=== PATIENT | female | born 1990 | race Caucasian/White ===

== ENCOUNTER 2016-10-20 12:08 | Emergency (ER) | payer OTHER, MEDICAID ==
[2016-10-20] MEDS ORDERED: Clindamycin CAP* 150 MG PO ONE (13:22)
[2016-10-20] MEDS ORDERED: Ibuprofen TAB* 200 MG PO ONE (13:22)
[2016-10-20] MEDS ORDERED: Ondansetron ODT TAB* 4 MG PO ONE (13:23)
[2016-10-20 14:35] VITALS: BP 115/65
--- NOTE | 2016-10-21 22:35 | ED ---
Douglas Siddiqui Adam, scribed for Aron Anderson MD on 10/20/16 at 1326 . Skin Complaint - HPI Summary HPI Summary: Pt is a 25 year old female presenting with a rash on the right side of her upper back. She states that the redness developed around a bug bite approximately 1 week ago and it has been growing larger. The area of redness is painful and it also causes her pain to move her right arm. She denies noticing any pus or drainage. She also c/o nausea, chills, chest tightness, and feelings of pre-syncope. She states that the chest tightness resolved after she arrived at the ED and calmed down. She has not been eating very much because of the nausea. She denies vomiting and diarrhea. PMHx of Lakisha and anxiety. - History of Current Complaint Chief Complaint: EDChestPainROMI Time Seen by Provider: 10/20/16 13:10 Stated Complaint: FLU LIKE SYNPTOMS Hx Obtained From: Patient Hx Last Menstrual Period: gave 1 month ago Onset/Duration: Started Days Ago, Atraumatic, Still Present Timing: Constant Onset Severity: Mild Current Severity: Moderate Pain Intensity: 2 Pain Scale Used: 0-10 Numeric Skin Location: Discrete - Right upper back Character: Redness, Painful Aggravating Symptom(s): Touch, Other: - Movement of right arm Alleviating Symptom(s): Nothing Associated Signs & Symptoms: Nausea, Chills, Chest Pain, Syncope - Pre-syncope ( no LOC) - Allergy/Home Medications Allergies/Adverse Reactions: Allergies Allergy/AdvReac Type Severity Reaction Status Date / Time Oxycodone [From Percocet] Allergy Rash Verified 05/14/16 16:41 Sulfamethoxazole Allergy Hives/Diff.Breathing/Itching, Verified 05/14/16 16:41 w/Trimethoprim SWELLS [From Bactrim] PMH/Surg Hx/FS Hx/Imm Hx Endocrine/Hematology History: Reports: Hx Anemia - HISTORY OF DURING , NO PROBLEMS, TRANSFUSION WITH LAST 3 CHILDREN Denies: Hx Diabetes, Hx Thyroid Disease Cardiovascular History: Denies: Hx Hypertension Respiratory History: Reports: Hx Asthma - NO PROBLEM IN 6 YEARS Denies: Hx Chronic Obstructive Pulmonary Disease (COPD) GI History: Denies: Hx Ulcer Musculoskeletal History: Reports: Hx Arthritis - BILATERAL KNEE AND ANKLES, LEFT GREATER THAN RIGHT Sensory History: Denies: Hx Contacts or Glasses Opthamlomology History: Denies: Hx Contacts or Glasses Neurological History: Reports: Hx Headaches, Hx Migraine Psychiatric History: Reports: Hx Anxiety - NO MEDICATION Denies: Hx Eating Disorder, Hx of Violent Episodes Against Others - Surgical History [facility] [place] DIL[place] AND CURETTAGE Hx Anesthesia Reactions: No - NAUSEA AND VOMITING, LOST FEELING IN LEFT ARM, AFTER D&C - Immunization History Date of Tetanus Vaccine: Unknown Infectious Disease History: Denies: Hx Hepatitis, Hx Human Immunodeficiency Virus (HIV), Traveled Outside the [place] in Last 30 Days - Family History Known Family History: Positive: Other - No malignant hyperthermia, no anesthesia rxn, mood disorder - Social History Lives: Alone Alcohol Use: None Hx Substance Use: No Substance Use Type: Reports: None Hx Tobacco Use: Yes Smoking Status (MU): Former Smoker Have You Smoked in the Last Year: No Review of Systems Positive: Chills. Negative: Fever Negative: Erythema Negative: Sore Throat Positive: Chest Pain - Tightness Negative: Shortness Of Breath, Cough Positive: Nausea. Negative: Abdominal Pain, Vomiting, Diarrhea Negative: dysuria, hematuria Negative: Myalgia, Edema Positive: Rash Positive: Syncope - Pre-syncope (no LOC) All Other Systems Reviewed And Are Negative: Yes Physical Exam - Summary Physical Exam Summary: Constitutional: Well-developed, Well-nourished, Alert. (-) Distressed Skin: Warm, Dry HENT: Normocephalic; Atraumatic Eyes: Conjunctiva normal Neck: Musculoskeletal ROM normal neck. (-) JVD, (-) Stridor, (-) Tracheal deviation Cardio: Rhythm regular, rate normal, Heart sounds normal; Intact distal pulses; The pedal pulses are 2+ and symmetric. Radial pulses are 2+ and symmetric. (-) Murmur Pulmonary/Chest wall: Effort normal. (-) Respiratory distress, (-) Wheezes, (-) Rales Abd: Soft, (-) Tenderness, (-) Distension, (-) Guarding, (-) Rebound Musculoskeletal: (-) Edema Lymph: (-) Cervical adenopathy Neuro: Alert, Oriented x3 Psych: Mood and affect Normal Triage Information Reviewed: Yes Vital Signs On Initial Exam: Initial Vitals Temp Pulse Resp BP Pulse Ox 98.7 F 93 20 108/67 99 10/20/16 13:01 10/20/16 13:01 10/20/16 13:01 10/20/16 13:01 10/20/16 13:01 Vital Signs Reviewed: Yes - Eric Coma Scale Coma Scale Total: 15 Diagnostics - Vital Signs Vital Signs Temp Pulse Resp BP Pulse Ox 10/20/16 13:01 98.7 F 93 20 108/67 99 - Laboratory Lab Statement: Any lab studies that have been ordered have been reviewed, and results considered in the medical decision making process. Course/Dx - Diagnoses Provider Diagnoses: Cellulitis, Near syncope Discharge - Discharge Plan Condition: Stable Disposition: HOME Patient Education Materials: Cellulitis (ED), Near Syncope (ED) Forms: *Work Release [place] [facility] [place]Outside] Additional Instructions: [place] [facility] [place] to make an appt with a physician in 2 days. The documentation as recorded by the Douglas skinner Adam accurately reflects the service I personally performed and the decisions made by , Aron Anderson MD.
== END 2016-10-20 14:35 | disposition home or self-care (01) ==
LOC: ED 12:08
DX: L03.90 Cellulitis, unspecified (principal); R55 Syncope and collapse; R21 Rash and other nonspecific skin eruption; M54.9 Dorsalgia, unspecified; R07.9 Chest pain, unspecified; R11.0 Nausea
CPT/HCPCS: 99283; A9270-GY

== ENCOUNTER 2017-02-21 17:12 | Emergency (ER) | payer MEDICAID ==
[2017-02-21] MEDS ORDERED: Aspirin Low Dose CHEW TAB* 81 MG PO ONE (17:28)
[2017-02-21 17:42] LABS: Hematocrit 30 % (35-47); Hemoglobin 9.4 g/dl (12.0-16.0); Mean Corpuscular HGB Conc 31 g/dl (31-36); Mean Corpuscular Hemoglobin 22 pg (27-31); Mean Corpuscular Volume 70 fL (80-97); Mean Platelet Volume 9 um3 (7.4-10.4); Red Blood Count 4.31 10^6/ul (4.0-5.4); Red Cell Distribution Width 18 % (10.5-15); White Blood Count 6.7 10^3/ul (3.5-10.8)
[2017-02-21 18:02] LABS: Add Diff/Slide Review? Slide Review Added; Comments Flag Yes
[2017-02-21 18:05] LABS: ALT 13 U/L (7-52); AST 24 U/L (13-39); Albumin 4.3 g/dL (3.2-5.2); Alkaline Phosphatase 58 U/L (34-104); Anion Gap 6 mmol/L (2-11); BUN/Creatinine Ratio 14.9 (8-20); Blood Urea Nitrogen 11 mg/dL (6-24); CO2 Carbon Dioxide 25 mmol/L (22-32); Calcium 8.9 mg/dL (8.6-10.3); Chloride 104 mmol/L (101-111); EGFR Non-African American 94.9 (>60); Glucose 93 mg/dL (70-100); Potassium 3.3 mmol/L (3.5-5.0); Sodium 135 mmol/L (133-145); Total Protein 7.3 g/dL (6.4-8.9)
--- NOTE | 2017-02-21 18:05 | RAD ---
Indication: Syncopal episode; hit back of head. Tobacco use. Comparison: October 26, 2012 Technique: Upright AP 1736 hours Report: Clear lungs and pleural spaces. Negative for pneumothorax. The heart, pulmonary vasculature, and mediastinal contours are unremarkable. Unremarkable osseous structures and soft tissue contours. IMPRESSION: No evidence for acute intrathoracic disease.
--- NOTE | 2017-02-21 18:08 | RAD ---
Indication: Syncopal episode. Struck back of head. Comparison: No relevant prior exams available on the [facility] [place] for comparison. Technique: Noncontrast CT vertex of skull through foramen magnum. Report: The sulci, ventricles, and basal cisterns are normal for age. Maurice matter white matter differentiation is preserved without evidence for edema. No intra or extra axial hemorrhage is detected. Unremarkable orbital contents. Negative for calvarial or skull base fracture. Negative for scalp hematoma. The visualized paranasal sinuses and mastoid air spaces are clear. IMPRESSION: No evidence for traumatic brain injury or acute intracranial process. Negative exam.
[2017-02-21 18:16] LABS: Hypochromasia 1+; Microcytosis 1+; Polychromasia 1+
[2017-02-21 18:27] LABS: Iron 19 ug/dL (50-212); Total Iron Binding Capacity 475 mcg/dL (250-450); Transferrin 339 mg/dL (203-362)
[2017-02-21 18:47] LABS: Ferritin < 10.0 ng/mL (11-307)
--- NOTE | 2017-02-21 19:11 | RAD ---
Indication: Neck pain post fall. Comparison: January 28, 2010 Technique: AP, open-mouth odontoid, and lateral views cervical spine. Report: Adequate visualization from the base of the skull to the cervicothoracic junction. Normal cervical vertebral alignment. Negative for fracture. Preserved disc spaces. Unremarkable prevertebral soft tissue contours. IMPRESSION: No radiographic evidence for cervical spine injury. Negative exam.
[2017-02-21 22:35] VITALS: BP 123/82
--- NOTE | 2017-02-23 07:59 | ED ---
Thuan Siddiqui SooYoung, scribed for Aron Anderson MD on 02/21/17 at 1734 . Syncope/Near Syncope - HPI Summary HPI Summary: A 26 y/o F KAROLYN presents to ED after syncopal episode [employer]. Associated sx: LUE and LLE numbness, mid-sternal CP, nonproductive cough, nausea, chills, diaphoresis, R-sided neck pain. Denies leg pain and swelling. Pt was squatting, attempted to stand and fell backwards. She hit her head with likely LOC. Prior to head trauma, she was having pain to R forehead. She drank two Monster energy drinks within an hour of each other. Currently menstruating, she says yesterday' s flow was very heavy. Pt states not sleeping well in months. PMHx: anxiety, anemia. Occasional drinker. - History Of Current Complaint Chief Complaint: EDSyncope Time Seen by Provider: 02/21/17 17:26 Hx Obtained From: Patient, Family/Petroleum Inspector - mother Onset/Duration: Sudden Onset, Resolved - syncope Timing: Frequency Of Episodes - 1x Context: Loss Of Consciousness Associated Head Trauma: Yes Aggravating Factor(s): Other - deep breaths, sitting up Associated Signs And Symptoms: Chest Pain - mild, Diaphoresis, Head Trauma ( Remote) - due to syncope, Headache, Numbness, Pain - R-side neck - Allergies/Home Medications Allergies/Adverse Reactions: Allergies Allergy/AdvReac Type Severity Reaction Status Date / Time Oxycodone [From Percocet] Allergy Rash Verified 05/14/16 16:41 Sulfamethoxazole Allergy Hives/Diff.Breathing/Itching, Verified 05/14/16 16:41 w/Trimethoprim SWELLS [From Bactrim] PMH/Surg Hx/FS Hx/Imm Hx Previously Healthy: No Endocrine/Hematology History: Reports: Hx Anemia - HISTORY OF DURING , NO PROBLEMS, TRANSFUSION WITH LAST 3 CHILDREN Denies: Hx Diabetes, Hx Thyroid Disease Cardiovascular History: Denies: Hx Hypertension Respiratory History: Reports: Hx Asthma - NO PROBLEM IN 6 YEARS Denies: Hx Chronic Obstructive Pulmonary Disease (COPD) GI History: Denies: Hx Ulcer Musculoskeletal History: Reports: Hx Arthritis - BILATERAL KNEE AND ANKLES, LEFT GREATER THAN RIGHT Sensory History: Denies: Hx Contacts or Glasses Opthamlomology History: Denies: Hx Contacts or Glasses Neurological History: Reports: Hx Headaches, Hx Migraine Psychiatric History: Reports: Hx Anxiety - NO MEDICATION, Other Psychiatric Issues/Disorders - sleep disorders possibly due to stress Denies: Hx Eating Disorder, Hx of Violent Episodes Against Others - Surgical History [facility] [place] DILATION AND CURETTAGE Hx Anesthesia Reactions: No - NAUSEA AND VOMITING, LOST FEELING IN LEFT ARM, AFTER D&C - Immunization History Date of Tetanus Vaccine: Unknown Infectious Disease History: No Infectious Disease History: Denies: Hx Hepatitis, Hx Human Immunodeficiency Virus (HIV), Traveled Outside the [place] in Last 30 Days - Family History Known Family History: Positive: Cardiac Disease, Other - No malignant hyperthermia, no anesthesia rxn, mood disorder - Social History Occupation: Employed Full-time Lives: With Family Alcohol Use: None Hx Substance Use: No Substance Use Type: Reports: None Hx Tobacco Use: Yes Smoking Status (MU): Former Smoker Have You Smoked in the Last Year: No Review of Systems Positive: Chills, Skin Diaphoresis. Negative: Fever Negative: Erythema Negative: Sore Throat Positive: Chest Pain - mild Positive: Cough - nonproductive. Negative: Shortness Of Breath Positive: Nausea. Negative: Abdominal Pain, Vomiting Negative: dysuria, hematuria Positive: Other - pos: R-sided neck pain. Negative: Edema Negative: Rash Neurological: Other - neg: dizziness Positive: Headache, Numbness - LUE and LLE, Syncope All Other Systems Reviewed And Are Negative: Yes Physical Exam - Summary Physical Exam Summary: Constitutional: Well-developed, Well-nourished, Alert. (-) Distressed Skin: Warm, Dry HENT: Normocephalic; Atraumatic Eyes: Conjunctiva normal Neck: Musculoskeletal ROM normal neck. (-) JVD, (-) Stridor, (-) Tracheal deviation Cardio: Rhythm regular, rate normal, Heart sounds normal; Intact distal pulses; The pedal pulses are 2+ and symmetric. Radial pulses are 2+ and symmetric. (-) Murmur Pulmonary/Chest wall: Effort normal. (-) Respiratory distress, (-) Wheezes, (-) Rales Abd: Soft, (-) Tenderness, (-) Distension, (-) Guarding, (-) Rebound Musculoskeletal: (-) Edema Lymph: (-) Cervical adenopathy Neuro: Alert, Oriented x3 Psych: Mood and affect Normal Triage Information Reviewed: Yes Vital Signs On Initial Exam: Initial Vitals Temp Pulse Resp BP Pulse Ox 98.4 F 64 16 121/80 100 02/21/17 17:17 02/21/17 17:17 02/21/17 17:17 02/21/17 17:17 02/21/17 17:17 Vital Signs Reviewed: Yes - Eric Coma Scale Coma Scale Total: 15 Diagnostics - Vital Signs Vital Signs Temp Pulse Resp BP Pulse Ox 02/21/17 17:19 76 100 02/21/17 17:17 98.4 F 64 16 121/80 100 - Laboratory Result Diagrams: 02/21/17 17:30 02/21/17 17:30 Lab Statement: Any lab studies that have been ordered have been reviewed, and results considered in the medical decision making process. - Radiology CXR Xray Interpretation: No Acute Changes - IMPRESSION: No evidence for acute intrathoracic dz. Radiology Interpretation Completed By: Radiologist C-SPINE Xray Interpretation: No Acute Changes - IMPRESSION: No radiographic evidence for cervical spine injury. Negative exam. Radiology Interpretation Completed By: Radiologist - CT BRAIN CT CT Interpretation: No Acute Changes - IMPRESSION: No evidence for traumatic brain injury or acute intracranial process. Neg exam. CT Interpretation Completed By: Radiologist - EKG 1719 Cardiac Rate: NL - 66bpm EKG Rhythm: Sinus Rhythm ST Segment: Normal - no STEMI Re-Evaluation - Re-Evaluation 1 Re-Evaluation Time: 22:21 Change: Unchanged Comment: Discussing results and dispo plan with pt. Course/Dx Course Of Treatment: A 26 y/o F KAROLYN presents after syncopal episode [employer]. Associated sx: LUE and LLE numbness, mid-sternal CP, nonproductive cough, nausea , chills, diaphoresis, R-sided neck pain. Denies leg pain and swelling. Pt was squatting, attempted to stand and fell backwards. She hit her head with likely LOC. Prior to head trauma, she was having pain to R forehead. She drank two Monster energy drinks within an hour of each other. Currently menstruating, she says yesterday's flow was very heavy. Pt states not sleeping well in months. PMHx: anxiety, anemia. Occasional drinker. Bloodwork is without significant abnormalities except Iron of 19. EKG is NSR at 66bpm with no STEMI. Brain CT is negative. CXR is nml. C-Spine XR is negative. Pt given aspirin in ED. Will D/ C home with iron pills, recommended pt eat two bananas a day. - Diagnoses Provider Diagnoses: Syncope, Iron deficiency anemia, Concussion, Hypokalemia, Panic attack Discharge - Discharge Plan Condition: Stable Disposition: HOME Prescriptions: Ferrous Sulfate TAB* 325 mg PO BID #60 tab Patient Education Materials: Syncope (ED), Iron Deficiency Anemia (ED), Hypokalemia (ED), Panic Attack (ED), Concussion (ED) Forms: *Work Release Referrals: Nancy De Leon CNM [Primary Care Provider] - Additional Instructions: As we discussed, eat two bananas a day. Please return to the ED if you experience new or worsening symptoms. The documentation as recorded by the Thuan skinner SooYoung accurately reflects the service I personally performed and the decisions made by me, Aron Anderson MD.
== END 2017-02-21 22:39 | disposition home or self-care (01) ==
LOC: ED 17:12
DX: R07.9 Chest pain, unspecified (principal); R55 Syncope and collapse; S06.0X9A Concussion with loss of consciousness of unspecified duration, initial encounter; R51 Headache; R20.0 Anesthesia of skin; Z87.891 Personal history of nicotine dependence; R05 Cough; R11.0 Nausea; D64.9 Anemia, unspecified; X58.XXXA Exposure to other specified factors, initial encounter; Y93.9 Activity, unspecified; Y92.9 Unspecified place or not applicable; F41.0 Panic disorder [episodic paroxysmal anxiety]
CPT/HCPCS: 36415; 70450; 71010; 72040; 80053; 82728; 83540; 83550; 83605; 84484; 85025; 85379; 93005; 99282; A9270-GY

== ENCOUNTER → 2017-03-17 11:54 | Emergency (ER) | payer MEDICAID ==
[2017-03-17 12:00] VITALS: BP 107/80
== END | disposition home or self-care (01) ==
LOC: ED 11:54
DX: M25.511 Pain in right shoulder (principal); Z53.21 Procedure and treatment not carried out due to patient leaving prior to being seen by health care provider
CPT/HCPCS: 99281

== ENCOUNTER 2017-08-19 04:17 | Emergency (ER) | payer OTHER ==
[2017-08-19 06:18] VITALS: BP 102/62
--- NOTE | 2017-08-19 06:27 | ED ---
Yash Siddiqui Thomas, scribed for Blas Simpson MD on 08/19/17 at 0433 . Lower Extremity - HPI Summary HPI Summary: The patient is a 26 year old female brought in by ambulance concerns for frostbite on her bilateral feet. The patient was standing outside at a bus stop for an extended period of time after she left work. - History of Current Complaint Chief Complaint: EDExposureHeatCold Stated Complaint: COLD FEET Time Seen by Provider: 08/19/17 04:21 Hx Obtained From: Patient Hx Last Menstrual Period: gave 1 month ago Onset/Duration: Still Present Severity Initially: Moderate Severity Currently: Moderate Timing: Constant Location: Is Discrete @ - bilateral feet Associated Signs And Symptoms: Positive: Negative Aggravating Factor(s): Nothing Alleviating Factor(s): Nothing - Allergies/Home Medications Allergies/Adverse Reactions: Allergies Allergy/AdvReac Type Severity Reaction Status Date / Time MS Oxycodone [From Percocet] Allergy Rash Verified 03/17/17 11:58 MS Sulfamethoxazole Allergy Hives/Diff.Breathing/Itching, Verified 03/17/17 11: 58 w/Trimethoprim SWELLS [From Bactrim] PMH/Surg Hx/FS Hx/Imm Hx Endocrine/Hematology History: Reports: Hx Anemia - HISTORY OF DURING , NO PROBLEMS, TRANSFUSION WITH LAST 3 CHILDREN Denies: Hx Diabetes, Hx Thyroid Disease Cardiovascular History: Denies: Hx Hypertension Respiratory History: Reports: Hx Asthma - NO PROBLEM IN 6 YEARS Denies: Hx Chronic Obstructive Pulmonary Disease (COPD) GI History: Denies: Hx Ulcer Musculoskeletal History: Reports: Hx Arthritis - BILATERAL KNEE AND ANKLES, LEFT GREATER THAN RIGHT Sensory History: Denies: Hx Contacts or Glasses Opthamlomology History: Denies: Hx Contacts or Glasses Neurological History: Reports: Hx Headaches, Hx Migraine Psychiatric History: Reports: Hx Anxiety - NO MEDICATION, Other Psychiatric Issues/Disorders - sleep disorders possibly due to stress Denies: Hx Eating Disorder, Hx of Violent Episodes Against Others - Surgical History [facility] AND CURETT[facility] Hx Anesthesia Reactions: No - NAUSEA AND VOMITING, LOST FEELING IN LEFT ARM, AFTER D&C - Immunization History Date of Tetanus Vaccine: Unknown Infectious Disease History: Denies: Hx Hepatitis, Hx Human Immunodeficiency Virus (HIV) - Family History Known Family History: Positive: Cardiac Disease, Other - No malignant hyperthermia, no anesthesia rxn, mood disorder - Social History Alcohol Use: None Hx Substance Use: No Substance Use Type: Reports: None Hx Tobacco Use: Yes Smoking Status (MU): Former Smoker Have You Smoked in the Last Year: No Review of Systems Negative: Fever Positive: Other - Foot pain All Other Systems Reviewed And Are Negative: Yes Physical Exam - Summary Physical Exam Summary: General: well-appearing, no pain distress Skin: warm, color reflects adequate perfusion, dry Head: normal Eyes: EOMI, DEREK ENT: normal Neck: supple, nontender Respiratory: CTA, breath sounds present Cardiovascular: RRR Abdomen: soft, nontender Bowel: present Musculoskeletal: strength/ROM intact Extremities: The feet are cold to the touch but they have normal capillary refill and normal pulses. Neurological: normal, sensory/motor intact, A&O x3 Psychological: affect/mood appropriate Triage Information Reviewed: Yes Vital Signs On Initial Exam: Initial Vitals Temp Pulse Resp BP Pulse Ox 97.9 F 78 16 126/84 99 08/19/17 04:22 08/19/17 04:22 08/19/17 04:22 08/19/17 04:22 08/19/17 04:22 Vital Signs Reviewed: Yes Diagnostics - Vital Signs Vital Signs Temp Pulse Resp BP Pulse Ox 08/19/17 06:18 61 18 102/62 98 08/19/17 04:22 97.9 F 78 16 126/84 99 - Laboratory Lab Statement: Any lab studies that have been ordered have been reviewed, and results considered in the medical decision making process. Lower Extremity Course/Dx - Course Course Of Treatment: IMPROVED IN ED. F/U PMD; RETURN IF WORSE. - Diagnoses Provider Diagnoses: Hypothermia Discharge - Discharge Plan Condition: Stable Disposition: HOME Patient Education Materials: Acute Hypothermia (ED) Referrals: Nancy De Leon CNM [Certified Nurse Search Engine Optimization Strategist] - Additional Instructions: FOLLOW UP WITH YOUR DOCTOR. RETURN TO THE EMERGENCY DEPARTMENT FOR ANY WORSENING OF YOUR CONDITION OR QUESTIONS OR CONCERNS. The documentation as recorded by the Yash skinner Thomas accurately reflects the service I personally performed and the decisions made by me, Blas Simpson MD.
== END 2017-08-19 07:01 | disposition home or self-care (01) ==
LOC: ED 04:17
DX: T68.XXXA Hypothermia, initial encounter (principal); Z87.891 Personal history of nicotine dependence; X31.XXXA Exposure to excessive natural cold, initial encounter; Y92.521 Bus station as the place of occurrence of the external cause
CPT/HCPCS: 99282

== ENCOUNTER 2017-09-27 19:28 | Emergency (ER) | payer OTHER ==
[2017-09-27] MEDS ORDERED: Ketorolac INJ* 60 MG/2 ML VIAL IM ONE (20:18)
--- NOTE | 2017-09-27 21:38 | ED ---
GI/ HPI - HPI Summary HPI Summary: 26-year-old female presents with worsening menstrual cramps today. She states her period started September 20. States her cramps are worse than normal. She states she is concerned that she has ovarian cyst. She states bleeding is normal. She denies any pain with urination. She states she had a tubal but there is possibility that she is . She denies any history of STDs. She denies any flank pain. She denies any nausea or vomiting. She hasn't taking anything for pain. Heat makes it better. She denies any fevers. - History of Current Complaint Chief Complaint: EDUrogenitalProblems Time Seen by Provider: 09/27/17 20:02 Stated Complaint: MENSTRUAL CRAMPS Hx Last Menstrual Period: gave 1 month ago Pain Intensity: 9 - Allergy/Home Medications Allergies/Adverse Reactions: Allergies Allergy/AdvReac Type Severity Reaction Status Date / Time sulfamethoxazole Allergy Hives/Diff. Verified 09/27/17 19:40 [From Bactrim] Breathing/I tching trimethoprim [From Bactrim] Allergy Hives/Diff. Verified 09/27/17 19:40 Breathing/I tching acetaminophen [From Percocet] AdvReac Intermediate Rash Verified 09/27/17 19:40 oxycodone [From Percocet] AdvReac Intermediate Rash Verified 09/27/17 19:40 PMH/Surg Hx/FS Hx/Imm Hx Endocrine/Hematology History: Reports: Hx Anemia - HISTORY OF DURING , NO PROBLEMS, TRANSFUSION WITH LAST 3 CHILDREN Denies: Hx Diabetes, Hx Thyroid Disease Cardiovascular History: Denies: Hx Hypertension Respiratory History: Reports: Hx Asthma - NO PROBLEM IN 6 YEARS Denies: Hx Chronic Obstructive Pulmonary Disease (COPD) GI History: Denies: Hx Ulcer Musculoskeletal History: Reports: Hx Arthritis - BILATERAL KNEE AND ANKLES, LEFT GREATER THAN RIGHT Sensory History: Denies: Hx Contacts or Glasses Opthamlomology History: Denies: Hx Contacts or Glasses Neurological History: Reports: Hx Headaches, Hx Migraine Psychiatric History: Reports: Hx Anxiety - NO MEDICATION, Other Psychiatric Issues/Disorders - sleep disorders possibly due to stress Denies: Hx Eating Disorder, Hx of Violent Episodes Against Others - Surgical History Surgery Procedure, Year, and Place: 2010 [facility]. 04/09/2012 DILATION AND CURETTAGE Hx Anesthesia Reactions: No - NAUSEA AND VOMITING, LOST FEELING IN LEFT ARM, AFTER D&C - Immunization History Date of Tetanus Vaccine: Unknown Infectious Disease History: No Infectious Disease History: Denies: Hx Hepatitis, Hx Human Immunodeficiency Virus (HIV), Traveled Outside the [place] in Last 30 Days - Family History Known Family History: Positive: Cardiac Disease, Other - No malignant hyperthermia, no anesthesia rxn, mood disorder - Social History Alcohol Use: Rare Hx Substance Use: No Substance Use Type: Reports: None Hx Tobacco Use: Yes Smoking Status (MU): Light Every Day Tobacco Smoker Have You Smoked in the Last Year: No Review of Systems Negative: Fever Negative: Chest Pain Negative: Shortness Of Breath Positive: Abdominal Pain. Negative: Vomiting All Other Systems Reviewed And Are Negative: Yes Physical Exam Triage Information Reviewed: Yes Vital Signs On Initial Exam: Initial Vitals Temp Pulse Resp BP Pulse Ox 98.4 F 73 16 115/79 99 09/27/17 19:37 09/27/17 19:37 09/27/17 19:37 09/27/17 19:37 09/27/17 19:37 Vital Signs Reviewed: Yes Appearance: Positive: Well-Appearing Skin: Positive: Warm, Dry Head/Face: Positive: Normal Head/Face Inspection Eyes: Positive: Normal, Conjunctiva Clear Respiratory/Lung Sounds: Positive: Clear to Auscultation, Breath Sounds Present Cardiovascular: Positive: Normal, RRR Abdomen Description: Positive: Soft, Other: - mild suprapubic tenderness Bowel Sounds: Positive: Present Musculoskeletal: Positive: Normal Neurological: Positive: Normal Psychiatric: Positive: Normal Diagnostics - Vital Signs Vital Signs Temp Pulse Resp BP Pulse Ox 09/27/17 19:37 98.4 F 73 16 115/79 99 - Laboratory Lab Results: Lab Results 09/27/17 Range/Units 20:30 Beta HCG, Quant < 0.60 mIU/mL Lab Statement: Any lab studies that have been ordered have been reviewed, and results considered in the medical decision making process. - Ultrasound No standard instances Ultrasound Interpretation: No Acute Changes Ultrasound Interpretation Completed By: Radiologist GIGU Course/Dx - Course Course Of Treatment: 26-year-old female presents with worsening menstrual cramps today. She states her period started September 20. States her cramps are worse than normal. She states she is concerned that she has ovarian cyst. She states bleeding is normal. She denies any pain with urination. She states she had a tubal but there is possibility that she is . She denies any history of STDs. She denies any flank pain. She denies any nausea or vomiting. She hasn't taking anything for pain. Heat makes it better. on exam tenderness lower abdomen. hcg neg. gave toradol and feeling better. u/s normal. discussed should follow up with ob to discuss control if cramps are an issue. patient understand and agrees with plan. - Diagnoses Differential Diagnoses - Female: Ovarian Cyst, Ovarian Torsion, Other - menstrual cramps Provider Diagnoses: Menstrual cramp Discharge - Discharge Plan Condition: Good Disposition: HOME Patient Education Materials: Dysmenorrhea (ED) Forms: *Gen. Provider Communication Referrals: Bernardo Harry MD [Primary Care Provider] - Additional Instructions: Take tyenlol or ibuprofen every [address] heat on area Return to ED if develop any new or worsening symptoms
--- NOTE | 2017-09-27 21:50 | RAD ---
INDICATION: Lower abdominal pain. COMPARISON: Comparison is made with a prior pelvic ultrasound from October 24, 2013. TECHNIQUE: Multiple real-time transvaginal images of the pelvis were obtained. FINDINGS: The uterus is normal in size, shape and echogenicity. The uterus measured 8.2 x 4.6 x 5.2 cm. The endometrial echo measured 0.7 cm in thickness. The right ovary measured 3.5 x 1.7 x 2.1 cm. The left ovary measured 4.3 x 2.0 x 2.2 cm. There is vascular flow within both ovaries. There are multiple small follicular cysts. There is a trace amount of free intraperitoneal fluid in the cul-de-sac. IMPRESSION: NEGATIVE EXAM.
[2017-09-27 22:10] VITALS: BP 126/85
== END 2017-09-27 22:09 | disposition home or self-care (01) ==
LOC: ED 19:28
DX: N94.6 Dysmenorrhea, unspecified (principal); Z32.02 Encounter for pregnancy test, result negative; F17.200 Nicotine dependence, unspecified, uncomplicated; Z88.6 Allergy status to analgesic agent; Z88.3 Allergy status to other anti-infective agents; Z88.5 Allergy status to narcotic agent
CPT/HCPCS: 36415; 76830; 84702; 96372; 99282; J1885

== ENCOUNTER 2017-12-05 09:34 | Emergency (ER) | payer MEDICAID, OTHER ==
[2017-12-05 09:44] VITALS: BP 106/78
--- NOTE | 2017-12-05 10:22 | UC ---
Throat Pain/Nasal Alberto HPI - HPI Summary HPI Summary: Patient states she's had sore throat for 2 days and nausea no cough. Patient states all of her children have had strep in the last couple weeks. - History of Current Complaint Chief Complaint: UCGeneralIllness Stated Complaint: SORE THROAT Time Seen by Provider: 12/05/17 09:56 Hx Obtained From: Patient Hx Last Menstrual Period: 11/22/17 ?: No Onset/Duration: Sudden Onset, Lasting Days - 1 Pain Intensity: 7 Pain Scale Used: 0-10 Numeric Cough: None Associated Signs & Symptoms: Positive: Negative - Allergies/Home Medications Allergies/Adverse Reactions: Allergies Allergy/AdvReac Type Severity Reaction Status Date / Time sulfamethoxazole Allergy Hives/Diff. Verified 09/27/17 19:40 [From Bactrim] Breathing/I tching trimethoprim [From Bactrim] Allergy Hives/Diff. Verified 09/27/17 19:40 Breathing/I tching acetaminophen [From Percocet] AdvReac Intermediate Rash Verified 09/27/17 19:40 oxycodone [From Percocet] AdvReac Intermediate Rash Verified 09/27/17 19:40 PMH/Surg Hx/FS Hx/Imm Hx Previously Healthy: No Endocrine History: Hypothyroidism - Surgical History Surgical History: Yes Surgery Procedure, Year, and Place: 2010 [facility] [place]. 04/09/2012 DILATION AND CURETTAGE - Family History Known Family History: Positive: Cardiac Disease, Other - No malignant hyperthermia, no anesthesia rxn, mood disorder - Social History Occupation: Employed Full-time Lives: With Family Alcohol Use: Rare Substance Use Type: None Smoking Status (MU): Former Smoker Have You Smoked in the Last Year: No - Immunization History Most Recent Influenza Vaccination: last year Most Recent Tetanus Shot: n/a Most Recent Pneumonia Vaccination: n/a Review of Systems Constitutional: Negative Skin: Negative Eyes: Negative ENT: Sore Throat Respiratory: Negative Cardiovascular: Negative Gastrointestinal: Negative Genitourinary: Negative Motor: Negative Neurovascular: Negative Musculoskeletal: Negative Neurological: Negative Psychological: Negative Is Patient Immunocompromised?: No All Other Systems Reviewed And Are Negative: Yes Physical Exam Triage Information Reviewed: Yes Appearance: Well-Appearing, No Pain Distress, Well-Nourished Vital Signs: Initial Vital Signs Temp 97.1 F 12/05/17 09:40 Pulse 72 12/05/17 09:40 Resp 15 12/05/17 09:40 BP 106/78 12/05/17 09:40 Pulse Ox 100 12/05/17 09:40 Vital Signs Reviewed: Yes Eye Exam: Normal Eyes: Positive: Conjunctiva Clear ENT Exam: Normal ENT: Positive: Normal ENT inspection, Hearing grossly normal, Pharyngeal erythema, TMs normal, Uvula midline. Negative: Nasal congestion, Tonsillar swelling, Tonsillar exudate, Trismus, Muffled voice, Hoarse voice, Dental tenderness, Sinus tenderness Dental Exam: Normal Neck exam: Normal Neck: Positive: Supple, Nontender, No Lymphadenopathy Respiratory Exam: Normal Respiratory: Positive: Chest non-tender, Lungs clear, Normal breath sounds, No respiratory distress, No accessory muscle use Cardiovascular Exam: Normal Cardiovascular: Positive: RRR, No Murmur, Pulses Normal, Brisk Capillary Refill Musculoskeletal Exam: Normal Musculoskeletal: Positive: Strength Intact, ROM Intact, No Edema Neurological Exam: Normal Neurological: Positive: Alert, Muscle Tone Normal Psychological Exam: Normal Skin Exam: Normal Diagnostics - Laboratory Diagnostic Studies Completed/Ordered: RST (-) Throat Pain/Nasal Course/Dx - Course Assessment/Plan: Patient will be discharged home and treated with amoxicillin by history and chief complaint. Tylenol ibuprofen for pain increase fluids follow with PCP when necessary - Differential Dx/Diagnosis Provider Diagnoses: Pharyngitis Discharge - Sign-Out/Discharge Documenting (check all that apply): Discharge/Admit/Transfer - Discharge Plan Condition: Stable Disposition: HOME Prescriptions: Amoxicillin PO (*) [Amoxicillin 875 MG (*)] 875 mg PO BID #20 tab Patient Education Materials: Pharyngitis (ED) Forms: *Work Release Referrals: Bernardo Harry MD [Primary Care Provider] - If Needed - Billing Disposition and Condition Condition: STABLE Disposition: HOME
== END 2017-12-05 10:33 | disposition home or self-care (01) ==
LOC: UCEAST 09:34
DX: J02.9 Acute pharyngitis, unspecified (principal); E03.9 Hypothyroidism, unspecified; Z88.6 Allergy status to analgesic agent; Z88.5 Allergy status to narcotic agent; Z88.2 Allergy status to sulfonamides; Z87.891 Personal history of nicotine dependence
CPT/HCPCS: 87651; 99212; G0463

== ENCOUNTER 2018-01-20 17:52 | Emergency (ER) | payer MEDICAID ==
[2018-01-20] MEDS ORDERED: Ondansetron ODT TAB* 4 MG PO ONE (18:26)
[2018-01-20 18:43] LABS: ABS Basophils 0 10^3/ul (0-0.2); ABS Eosinophils 0.1 10^3/ul (0-0.6); ABS Lymphocytes 1.2 10^3/ul (1.0-4.8); ABS Monocytes 0.3 10^3/ul (0-0.8); ABS Neutrophils 3.4 10^3/ul (1.5-7.7); ABS Nucleated RBC 0 10^3/ul; Eosinophil % 1.2 % (0-6); Hematocrit 31 % (35-47); Hemoglobin 10.3 g/dl (12.0-16.0); Lymphocyte % 24.3 % (25-47); Mean Corpuscular HGB Conc 33 g/dl (31-36); Mean Corpuscular Hemoglobin 26 pg (27-31); Mean Corpuscular Volume 78 fL (80-97); Mean Platelet Volume 9.3 um3 (7.4-10.4); Nucleated Red Blood Cells % 0; Platelet Count 210 10^3/ul (150-450); Red Blood Count 4.03 10^6/ul (4.00-5.40); Red Cell Distribution Width 16 % (10.5-15); White Blood Count 5.1 10^3/ul (3.5-10.8)
--- NOTE | 2018-01-20 18:48 | ED ---
Complex/Multi-Sys Presentation - HPI Summary HPI Summary: 27-year-old female presents with chest pain and shortness of breath for the past 20 minutes. She states she drank 3 monster drinks. She states her symptoms started after. She admits occasional palpitations that have resolved. States that her left arm feels numb. She is nonsmoker. has family history of cardiac disease. She admits to nausea. No vomiting. She has epigastric abdominal pain. She denies any headache. She denies any dizziness. She has history of anxiety states this does not feel the same. She has no other symptoms. - History Of Current Complaint Chief Complaint: EDGeneral Time Seen by Provider: 01/20/18 18:15 - Allergies/Home Medications Allergies/Adverse Reactions: Allergies Allergy/AdvReac Type Severity Reaction Status Date / Time sulfamethoxazole Allergy Hives/Diff. Verified 01/20/18 18:02 [From Bactrim] Breathing/I tching trimethoprim [From Bactrim] Allergy Hives/Diff. Verified 01/20/18 18:02 Breathing/I tching acetaminophen [From Percocet] AdvReac Intermediate Rash Verified 01/20/18 18:02 oxycodone [From Percocet] AdvReac Intermediate Rash Verified 01/20/18 18:02 Home Medications: Home Medications Acetaminophen [Tylenol Extra Strength] 1,000 mg PO Q6HR PRN 01/20/18 [History Confirmed 01/20/18] PMH/Surg Hx/FS Hx/Imm Hx Endocrine/Hematology History: Reports: Hx Anemia - HISTORY OF DURING , NO PROBLEMS, TRANSFUSION WITH LAST 3 CHILDREN Denies: Hx Diabetes, Hx Thyroid Disease Cardiovascular History: Denies: Hx Hypertension Respiratory History: Reports: Hx Asthma - NO PROBLEM IN 6 YEARS Denies: Hx Chronic Obstructive Pulmonary Disease (COPD) GI History: Denies: Hx Ulcer Musculoskeletal History: Reports: Hx Arthritis - BILATERAL KNEE AND ANKLES, LEFT GREATER THAN RIGHT Sensory History: Denies: Hx Contacts or Glasses Opthamlomology History: Denies: Hx Contacts or Glasses Neurological History: Reports: Hx Headaches, Hx Migraine Psychiatric History: Reports: Hx Anxiety - NO MEDICATION, Other Psychiatric Issues/Disorders - sleep disorders possibly due to stress Denies: Hx Eating Disorder, Hx of Violent Episodes Against Others - Surgical History Surgery Procedure, Year, and Place: 2010 [facility] [place]. 04/09/2012 DILATION AND CURETTAGE Hx Anesthesia Reactions: No - NAUSEA AND VOMITING, LOST FEELING IN LEFT ARM, AFTER D&C - Immunization History Date of Tetanus Vaccine: Unknown Infectious Disease History: No Infectious Disease History: Denies: Hx Hepatitis, Hx Human Immunodeficiency Virus (HIV), Traveled Outside the [place] in Last 30 Days - Family History Known Family History: Positive: Cardiac Disease, Other - No malignant hyperthermia, no anesthesia rxn, mood disorder - Social History Alcohol Use: Rare Hx Substance Use: No Substance Use Type: Reports: Excessive Caffeine Hx Tobacco Use: Yes Smoking Status (MU): Former Smoker Have You Smoked in the Last Year: No Review of Systems Negative: Fever Positive: Palpitations, Chest Pain Positive: Shortness Of Breath Positive: Abdominal Pain, Nausea. Negative: Vomiting All Other Systems Reviewed And Are Negative: Yes Physical Exam Triage Information Reviewed: Yes Vital Signs On Initial Exam: Initial Vitals Temp Pulse Resp BP Pulse Ox 99.3 F 80 16 125/86 100 01/20/18 17:57 01/20/18 17:57 01/20/18 17:57 01/20/18 17:57 01/20/18 17:57 Vital Signs Reviewed: Yes Appearance: Positive: Well-Appearing Skin: Positive: Warm, Dry Head/Face: Positive: Normal Head/Face Inspection Eyes: Positive: Normal, EOMI, DEREK, Conjunctiva Clear ENT: Positive: Normal ENT inspection, Pharynx normal, TMs normal Respiratory/Lung Sounds: Positive: Clear to Auscultation, Breath Sounds Present , Other - reproducible chest pain Cardiovascular: Positive: Normal, RRR Abdomen Description: Positive: Soft, Other: - mild epigastric pain Bowel Sounds: Positive: Present Musculoskeletal: Positive: Normal Neurological: Positive: Normal Psychiatric: Positive: Normal Diagnostics - Vital Signs Vital Signs Temp Pulse Resp BP Pulse Ox 01/20/18 17:57 99.3 F 80 16 125/86 100 - Laboratory Lab Results: Lab Results 01/20/18 Range/Units 18:32 WBC 5.1 (3.5-10.8) 10^3/ul RBC 4.03 (4.00-5.40) 10^6/ul Hgb 10.3 L (12.0-16.0) g/dl Hct 31 L (35-47) % MCV 78 L (80-97) fL MCH 26 L (27-31) pg MCHC 33 (31-36) g/dl RDW 16 H (10.5-15) % Plt Count 210 (150-450) 10^3/ul MPV 9.3 (7.4-10.4) um3 Neut % (Auto) 67.0 (38-83) % Lymph % (Auto) 24.3 L (25-47) % [place] % (Auto) 6.9 (0-7) % Eos % (Auto) 1.2 (0-6) % Baso % (Auto) 0.6 (0-2) % Absolute Neuts (auto) 3.4 (1.5-7.7) 10^3/ul Absolute Lymphs (auto) 1.2 (1.0-4.8) 10^3/ul Absolute Monos (auto) 0.3 (0-0.8) 10^3/ul Absolute Eos (auto) 0.1 (0-0.6) 10^3/ul Absolute Basos (auto) 0 (0-0.2) 10^3/ul Absolute Nucleated RBC 0 10^3/ul Nucleated RBC % 0 Result Diagrams: 01/20/18 18:32 01/20/18 18:32 Lab Statement: Any lab studies that have been ordered have been reviewed, and results considered in the medical decision making process. - Radiology chest Xray Interpretation: No Acute Changes Radiology Interpretation Completed By: Radiologist - EKG No standard instances Cardiac Rate: NL EKG Rhythm: Sinus Rhythm EKG Interpretation: sinus rhythm EKG Comparison: No Significant Change Re-Evaluation - Re-Evaluation First Eval Re-Evaluation Time: 20:48 Change: Improved Comment: symptoms resolved Complex Multi-Symp Course/Dx Course Of Treatment: 27-year-old female presents with chest pain and shortness of breath for the past 20 minutes. She states she drank 3 monster drinks. She states her symptoms started after. She admits occasional palpitations that have resolved. States that her left arm feels numb. She is nonsmoker. has family history of cardiac disease. She admits to nausea. No vomiting. She has epigastric abdominal pain. She denies any headache. She denies any dizziness. She has history of anxiety states this does not feel the same. She has no other symptoms. on exam reproducible chest pain, lungs CTA. ekg no STEMI. wbc normal. h/h similiar to previous. d-dimer neg. troponin neg. chest xray normal. after two hours patient sx resolved. patient understand and agrees with plan. - Diagnoses Differential Diagnoses/HQI/PQRI: Metabolic Abnormality, Other - ACS, PE Provider Diagnoses: Adverse reaction to caffeine, Chest pain Discharge - Sign-Out/Discharge Documenting (check all that apply): Discharge/Admit/Transfer - Discharge Plan Condition: Good Disposition: HOME Patient Education Materials: Noncardiac Chest Pain (ED) Referrals: Bernardo Harry MD [Primary Care Provider] - Additional Instructions: drink plenty of fluids stop using as much caffeine Follow up with primary within 5 days - Billing Disposition and Condition Condition: GOOD Disposition: Home
[2018-01-20 19:14] LABS: EGFR Non-African American 92.7 (>60)
--- NOTE | 2018-01-20 19:54 | RAD ---
INDICATION: Chest pain COMPARISON: Chest x-ray February 21, 2017 TECHNIQUE: PA and lateral views of the chest were obtained. FINDINGS: The heart and mediastinum are normal in size and contour. The lungs are grossly clear. There is no evidence of large pleural effusion. Visualized bones are normal for the patient's age. There is no radiographic evidence of free air beneath the diaphragm IMPRESSION: No radiographic evidence of acute cardiopulmonary disease.
[2018-01-20 20:41] VITALS: BP 126/91
== END 2018-01-20 20:35 | disposition home or self-care (01) ==
LOC: ED 17:52
DX: R07.9 Chest pain, unspecified (principal); R06.02 Shortness of breath; R00.2 Palpitations; R11.0 Nausea; R10.13 Epigastric pain; T43.615A Adverse effect of caffeine, initial encounter; Y92.9 Unspecified place or not applicable; G43.909 Migraine, unspecified, not intractable, without status migrainosus; F41.9 Anxiety disorder, unspecified; Z88.6 Allergy status to analgesic agent; Z88.5 Allergy status to narcotic agent; Z88.2 Allergy status to sulfonamides; Z82.49 Family history of ischemic heart disease and other diseases of the circulatory system; Z87.891 Personal history of nicotine dependence
CPT/HCPCS: 36415; 71046; 80053; 83735; 84443; 84484; 84702; 85025; 85379; 93005; 99282

== ENCOUNTER 2018-05-04 08:38 | Emergency (ER) | payer OTHER ==
[2018-05-04 08:52] VITALS: BP 109/67
--- NOTE | 2018-05-04 09:51 | UC ---
Complaint Female HPI - HPI Summary HPI Summary: 27 yo female presents with vaginal discharge. She tells me that her symptoms began about 4 days ago and had unprotected sex with a new partner 8 days ago. She is concerned about STDs today and would like culture testing, but no blood. She would also like a test. Denies fever, chills, abdominal pain, n/v/ d/c, dysuria, or pelvic pain. - History Of Current Complaint Chief Complaint: UCSTDScreening Stated Complaint: STD TESTING Time Seen by Provider: 05/04/18 09:51 Hx Obtained From: Patient Hx Last Menstrual Period: 04/20/18 Onset/Duration: Sudden Onset Severity Initially: Moderate Severity Currently: Moderate Pain Intensity: 6 Pain Scale Used: 0-10 Numeric - Allergies/Home Medications Allergies/Adverse Reactions: Allergies Allergy/AdvReac Type Severity Reaction Status Date / Time sulfamethoxazole Allergy Hives/Diff. Verified 05/04/18 08:52 [From Bactrim] Breathing/I tching trimethoprim [From Bactrim] Allergy Hives/Diff. Verified 05/04/18 08:52 Breathing/I tching acetaminophen [From Percocet] AdvReac Intermediate Rash Verified 05/04/18 08:52 oxycodone [From Percocet] AdvReac Intermediate Rash Verified 05/04/18 08:52 Home Medications: Home Medications Levothyroxine TAB* [Synthroid 125 MCG TAB*] 125 mcg PO DAILY 05/04/18 [History Confirmed 05/04/18] PMH/Surg Hx/FS Hx/Imm Hx Endocrine History: Hypothyroidism - Surgical History Surgical History: Yes Surgery Procedure, Year, and Place: 2010 [facility]. 04/09/2012 DILATION AND CURETTAGE - Family History Known Family History: Positive: Cardiac Disease, Other - No malignant hyperthermia, no anesthesia rxn, mood disorder - Social History Occupation: Employed Full-time Lives: With Family Alcohol Use: Rare Substance Use Type: None Smoking Status (MU): Former Smoker Have You Smoked in the Last Year: No - Immunization History Most Recent Influenza Vaccination: last year Most Recent Tetanus Shot: n/a Most Recent Pneumonia Vaccination: n/a Review of Systems Constitutional: Negative Skin: Negative Respiratory: Negative Cardiovascular: Negative Gastrointestinal: Negative Genitourinary: Vaginal/Penile Discharge Neurovascular: Negative Neurological: Negative Psychological: Negative All Other Systems Reviewed And Are Negative: Yes Physical Exam - Summary Physical Exam Summary: GENERAL: NAD. WDWN. No pain distress. SKIN: No rashes, sores, lesions, or open wounds. NECK: Supple. Nontender. No lymphadenopathy. CHEST: CTAB. No r/r/w. No accessory muscle use. Breathing comfortably and in no distress. CV: RRR. Without m/r/g. Pulses intact. Cap refill <2seconds ABDOMEN: Soft. NTTP. No distention or guarding. No CVA tenderness. Bowel sounds present NEURO: Alert. PSYCH: Age appropriate behavior. Triage Information Reviewed: Yes Vital Signs: Initial Vital Signs Temp 97.7 F 05/04/18 08:46 Pulse 81 05/04/18 08:46 Resp 16 05/04/18 08:46 BP 109/67 05/04/18 08:46 Pulse Ox 99 05/04/18 08:46 Laboratory Tests 05/04/18 10:00 POC Ur Test Negative Vital Signs Reviewed: Yes Pelvic Exam: Positive: External Exam Normal, No Cerv. Motion Tender, No Masses, Discharge - Moderate thin and thick white, Other - Assisted by Zuleyma MAGALLON. Negative: Active Bleeding, Blood, Cervicitis, Lesions, Mass, Tender w/ Cervical Motion Neurological: Positive: Alert Complaint Female Dx - Course Course Of Treatment: Urine negative. Exam suspicious for BV and/or yeast. Discussed this with pt and she would like treatment for both now with confirmatory testing. Cultures also obtained for GC/C. Will treat with diflucan and flagyl now. - Differential Dx/Diagnosis Provider Diagnoses: Bacterial vaginosis. Yeast infection Discharge - Sign-Out/Discharge Documenting (check all that apply): Patient Departure All imaging exams completed and their final reports reviewed: No Studies - Discharge Plan Condition: Stable Disposition: HOME Prescriptions: Fluconazole [Diflucan 150 MG (NF)] 150 mg PO ONCE #2 tab metroNIDAZOLE [Flagyl 500 MG TAB] 500 mg PO BID #14 tab Patient Education Materials: Bacterial Vaginosis (ED), Yeast Infection (ED) Referrals: Bernardo Harry MD [Primary Care Provider] - Additional Instructions: If you develop a fever, shortness of breath, chest pain, new or worsening symptoms - please call your PCP or go to the ED. - Billing Disposition and Condition Condition: STABLE Disposition: Home
== END 2018-05-04 10:31 | disposition home or self-care (01) ==
LOC: UCEAST 08:38
DX: N76.0 Acute vaginitis (principal); B37.3 Candidiasis of vulva and vagina; Z32.02 Encounter for pregnancy test, result negative; E03.9 Hypothyroidism, unspecified; Z88.6 Allergy status to analgesic agent; Z88.5 Allergy status to narcotic agent; Z88.0 Allergy status to penicillin; Z87.891 Personal history of nicotine dependence
CPT/HCPCS: 84702; 87480; 87491; 87510; 87591; 87661; 99212; G0463

== ENCOUNTER 2018-05-20 18:07 | Emergency (ER) | payer OTHER ==
[2018-05-20 18:46] VITALS: BP 131/83
--- NOTE | 2018-05-24 07:25 | UC ---
Discharge - Sign-Out/Discharge Documenting (check all that apply): Patient Departure All imaging exams completed and their final reports reviewed: No Studies - Discharge Plan Condition: Stable Disposition: LEFT WITHOUT BEING SEEN Referrals: Bernardo Harry MD [Primary Care Provider] - - Billing Disposition and Condition Condition: STABLE Disposition: Left Without Being Seen
== END 2018-05-20 19:20 | disposition home or self-care (01) ==
LOC: UCEAST 18:07
DX: R10.9 Unspecified abdominal pain (principal); L98.9 Disorder of the skin and subcutaneous tissue, unspecified; Z53.21 Procedure and treatment not carried out due to patient leaving prior to being seen by health care provider

== ENCOUNTER 2018-06-26 14:26 | Emergency (ER) | payer OTHER ==
[2018-06-26 14:36] VITALS: BP 119/77
--- NOTE | 2018-06-26 14:51 | UC ---
Head Injury HPI - HPI Summary HPI Summary: 27-year-old woman comes to clinic today with a chief complaint of head and facial injury. At about 4 hours ago she slipped and fell on some ice and struck her left face and head on the ice. She fell a few the past out and she went inside her house and then she relates that she did pass out. She reports bleeding from the mouth. She is nauseous. States her vision in the left eye is blurry. It hurts to try to chew. She feels an irregularity in the roof of her mouth with her tongue on the left side. No double vision. Reports decreased sensation in the left side of the face. Denies any weakness or numbness in the arms or legs or difficulties with speech. Not on any blood thinners. Patient has pain in the left side of the neck especially with turning the head to the right. - History Of Current Complaint Chief Complaint: UCHeadInjury Stated Complaint: FELL FACIAL INJURY Time Seen by Provider: 06/26/18 14:39 Hx Last Menstrual Period: 06/19/18 Pain Intensity: 10 - Allergies/Home Medications Allergies/Adverse Reactions: Allergies Allergy/AdvReac Type Severity Reaction Status Date / Time sulfamethoxazole Allergy Hives/Diff. Verified 06/26/18 14:36 [From Bactrim] Breathing/I tching trimethoprim [From Bactrim] Allergy Hives/Diff. Verified 06/26/18 14:36 Breathing/I tching acetaminophen [From Percocet] AdvReac Intermediate Rash Verified 06/26/18 14:36 oxycodone [From Percocet] AdvReac Intermediate Rash Verified 06/26/18 14:36 PMH/Surg Hx/FS Hx/Imm Hx Endocrine History: Hypothyroidism - Surgical History Surgical History: Yes Surgery Procedure, Year, and Place: 2010, , [facility] [place]. 04/09/2012 DILATION AND CURETTAGE - Family History Known Family History: Positive: Cardiac Disease, Other - No malignant hyperthermia, no anesthesia rxn, mood disorder - Social History Alcohol Use: Rare Substance Use Type: None Smoking Status (MU): Former Smoker Length of Time of Smoking/Using Tobacco: at age 23 Have You Smoked in the Last Year: No - Immunization History Most Recent Influenza Vaccination: last year Most Recent Tetanus Shot: n/a Most Recent Pneumonia Vaccination: n/a Review of Systems All Other Systems Reviewed And Are Negative: Yes Constitutional: Positive: Negative Skin: Positive: Negative Eyes: Positive: Blurred Vision - SEE HPI ENT: Positive: Other - SEE HPI Respiratory: Positive: Negative Cardiovascular: Positive: Negative Gastrointestinal: Positive: Negative Motor: Positive: Negative Neurovascular: Positive: Decreased Sensation - SEE HPI Musculoskeletal: Positive: Negative Neurological: Positive: Headache, Other - SEE HPI Psychological: Positive: Negative Is Patient Immunocompromised?: No Physical Exam Triage Information Reviewed: Yes Appearance: Well-Appearing, Well-Nourished, Pain Distress - MILD WITH PALPATION OF LEFT FACE Vital Signs: Initial Vital Signs Temp 98 F 06/26/18 14:27 Pulse 89 06/26/18 14:27 Resp 18 06/26/18 14:27 BP 119/77 06/26/18 14:27 Pulse Ox 100 06/26/18 14:27 Vital Signs Reviewed: Yes Eye Exam: Normal Eyes: Positive: Conjunctiva Clear ENT: Positive: TMs normal - NO HEMOTYMPANUM, Other - Patient is tender to palpation in the left zygomatic arch, left orbit, forehead and temporal area. Inside the mouth patient is tender left upper molars I do not see any obvious deformity there is no bleeding at this time. Neck exam: Normal Neck: Positive: Supple, Other: Respiratory: Positive: No respiratory distress Musculoskeletal Exam: Normal Musculoskeletal: Positive: Strength Intact, ROM Intact Neurological Exam: Normal Neurological: Positive: Alert, Muscle Tone Normal, Other: - GCS 15 Psychological Exam: Normal Psychological: Positive: Age Appropriate Behavior Skin Exam: Normal Head Injury Course/Dx - Course Course Of Treatment: Here in clinic today we do not have access to CT. Due to the loss of consciousness with the head injury and the patient feeling the irregularity in her upper jaw from her facial injury I recommended going to the emergency department for CT scan of the head and facial bones. We discussed transport by ambulance and POV patient is going to go by POV. - Differential Dx/Diagnosis Provider Diagnosis: Head injury, Concussion, Facial contusion Discharge - Sign-Out/Discharge Documenting (check all that apply): Patient Departure All imaging exams completed and their final reports reviewed: No Studies - Discharge Plan Condition: Stable Disposition: HOME-RECOMMEND TO ED Patient Education Materials: Concussion (ED), Head Injury (ED), Facial Contusion (ED) Referrals: Bernardo Harry MD [Primary Care Provider] - Additional Instructions: GO DIRECTLY TO THE EMERGENCY DEPARTMENT FOR FURTHER EVALUATION. - Billing Disposition and Condition Condition: STABLE Disposition: Home-Recommend to ED
== END 2018-06-26 14:59 | disposition home health service (06) ==
LOC: UCEAST 14:26
DX: S00.93XA Contusion of unspecified part of head, initial encounter (principal); S06.0X9A Concussion with loss of consciousness of unspecified duration, initial encounter; W00.0XXA Fall on same level due to ice and snow, initial encounter; Y92.9 Unspecified place or not applicable; Z88.6 Allergy status to analgesic agent; Z88.5 Allergy status to narcotic agent; Z88.2 Allergy status to sulfonamides; Z87.891 Personal history of nicotine dependence
CPT/HCPCS: 99212; G0463

== ENCOUNTER → 2018-06-26 15:11 | Emergency (ER) | payer OTHER ==
[~2018-06-26 15:11] MED LIST: Acetaminophen TAB* 325 MG PO ONE; Amoxicillin/Clavulanate TAB* 875 MG PO ONE
--- NOTE | 2018-06-26 16:47 | ED ---
Adult Trauma - HPI Summary HPI Summary: This patient is a 27 year old F presenting to [facility] with a chief complaint of recent fall on ice at 10am. The patient rates the pain 10/10 in severity. Patient reports WHITAKER, neck pain, nausea, blurry vision in the left eye, anxiety, and numbness in the left arm. The pt slipped on ice and fell, landed on her left side, and hit her face and left arm. She states her lip was bleeding also. After the fall, she ran inside and her sister said she had a temporary LOC. Pt reports that she is having a left sided headache. As for the pain, she says she would rather be in labor with her children. Allergies to Percocet and Bactrim. LKMP one week ago. PMHX hypothyroidism, concussions (5), three c sections. SHX parent. RX Sinthyroid. - History of Current Complaint Chief Complaint: EDHeadInjury Stated Complaint: FALL Time Seen by Provider: 06/26/18 16:02 Hx Obtained From: Patient Hx Last Menstrual Period: 06/19/18 Mechanism of Injury: Fall Loss of Consciousness: brief (seconds) Onset/Duration: Started Hours Ago - 10am Onset of Pain: Immediate Onset Severity: Severe Current Severity: Severe Pain Intensity: 10 Pain Scale Used: 0-10 Numeric Location: Head, Neck, Extremities - left arm Associated Signs & Symptoms: Positive: Nausea/Vomiting, Loss of Consciousness, Numbness/Weakness - Allergy/Home Medications Allergies/Adverse Reactions: Allergies Allergy/AdvReac Type Severity Reaction Status Date / Time sulfamethoxazole Allergy Hives/Diff. Verified 06/26/18 15:16 [From Bactrim] Breathing/I tching trimethoprim [From Bactrim] Allergy Hives/Diff. Verified 06/26/18 15:16 Breathing/I tching oxycodone [From Percocet] AdvReac Intermediate Rash Verified 06/26/18 15:16 PMH/Surg Hx/FS Hx/Imm Hx Endocrine/Hematology History: Reports: Hx Thyroid Disease, Hx Anemia - HISTORY OF DURING , NO PROBLEMS, TRANSFUSION WITH LAST 3 CHILDREN Denies: Hx Diabetes Cardiovascular History: Denies: Hx Hypertension Respiratory History: Reports: Hx Asthma Denies: Hx Chronic Obstructive Pulmonary Disease (COPD) GI History: Denies: Hx Ulcer Musculoskeletal History: Reports: Hx Arthritis - BILATERAL KNEE AND ANKLES, LEFT GREATER THAN RIGHT Sensory History: Denies: Hx Contacts or Glasses Opthamlomology History: Denies: Hx Contacts or Glasses Neurological History: Reports: Hx Headaches, Hx Migraine Psychiatric History: Reports: Hx Anxiety - NO MEDICATION, Other Psychiatric Issues/Disorders - sleep disorders possibly due to stress Denies: Hx Eating Disorder, Hx of Violent Episodes Against Others - Surgical History Surgery Procedure, Year, and Place: 2010, , [facility] [facility] [place] DILATION AND CURETTAGE Hx Anesthesia Reactions: No - NAUSEA AND VOMITING, LOST FEELING IN LEFT ARM, AFTER D&C - Immunization History Date of Tetanus Vaccine: Unknown Infectious Disease History: No Infectious Disease History: Denies: Hx Hepatitis, Hx Human Immunodeficiency Virus (HIV), Traveled Outside the [place] in Last 30 Days - Family History Known Family History: Positive: Cardiac Disease, Other - No malignant hyperthermia, no anesthesia rxn, mood disorder - Social History Alcohol Use: Rare Hx Substance Use: No Substance Use Type: Reports: None Hx Tobacco Use: Yes Smoking Status (MU): Former Smoker Length of Time of Smoking/Using Tobacco: at age 23 Have You Smoked in the Last Year: No Review of Systems Positive: Blurred Vision Positive: Nausea Positive: Other - neck pain Positive: Headache, Numbness - left arm Positive: Anxious All Other Systems Reviewed And Are Negative: Yes Physical Exam - Summary Physical Exam Summary: GENERAL: Patient is a well-developed and nourished female who is lying comfortable in the stretcher. Patient is not in any acute respiratory distress. HEAD AND FACE: Normocephalic. TTP along the left side of her face. EYES: PERRLA, EOMI x 2. EARS: Hearing grossly intact. MOUTH: Oropharynx within normal limits. NECK: Supple, trachea is midline, no adenopathy, no JVD, no carotid bruit. Tenderness along the c spine. CHEST: Symmetric, no tenderness at palpation LUNGS: Clear to auscultation bilaterally. No wheezing or crackles. CVS: Regular rate and rhythm, S1 and S2 present, no murmurs or gallops appreciated. ABDOMEN: Soft, non-tender. Bowel sounds are normal. No abdominal abnormal pulsations. EXTREMITIES: Full ROM in all major joints, no edema, no cyanosis or clubbing. NEURO: Alert and oriented x 3. No acute neurological deficits. Speech is normal and follows commands. SKIN: Dry and warm Triage Information Reviewed: Yes Vital Signs On Initial Exam: Initial Vitals Temp Pulse Resp BP Pulse Ox 97.8 F 84 16 113/85 100 06/26/18 15:13 06/26/18 15:13 06/26/18 15:13 06/26/18 15:13 06/26/18 15:13 Vital Signs Reviewed: Yes Diagnostics - Vital Signs Vital Signs Temp Pulse Resp BP Pulse Ox 06/26/18 15:13 97.8 F 84 16 113/85 100 - Laboratory Lab Statement: Any lab studies that have been ordered have been reviewed, and results considered in the medical decision making process. - CT Brain CT Interpretation Completed By: Radiologist Summary of CT Findings: No CT evidence for traumatic brain injury. Negative exam. ED physician has reviewed this report C-spine CT Interpretation Completed By: Radiologist Summary of CT Findings: No CT evidence for traumatic cervical spine injury. ED physician has reviewed this report Maxillofacial CT Interpretation Completed By: Radiologist Summary of CT Findings: Isolated fracture involving the medial wall of the LEFT orbit/lamina papyracea as described. ED physician has reviewed this report Adult Trauma Course/Dx - Course Course Of Treatment: This patient is a 27 year old F presenting to [facility] with a chief complaint of recent fall on ice at 10am. The patient rates the pain 10/10 in severity. Patient reports WHITAKER, neck pain, nausea, blurry vision in the left eye, anxiety, and numbness in the left arm. Brain CT reveals No CT evidence for traumatic brain injury. Negative exam. C-Spine reveals No CT evidence for traumatic cervical spine injury. Maxillofacial CT reveals Isolated fracture involving the medial wall of the LEFT orbit/lamina papyracea as described. ED physician has reviewed this radiology report. In the ED course the patient was given Acetaminophen. Discussed results with patient and she reports feeling better. She is hemodynamically stable and safe for discharge. Strict return precautions given and she will otherwise follow up with Dr. Street, plastic surgeon. Patient will be discharged with prescription for Amoxicillin and follow up from Dr. Street. The patient is agreeable with this plan. - Diagnoses Provider Diagnoses: Lamina papyracea fracture Discharge - Sign-Out/Discharge Documenting (check all that apply): Patient Departure - discharge - Discharge Plan Condition: Stable Disposition: HOME Prescriptions: Amoxicillin/Clavulanate TAB* [Augmentin TAB 875*] 875 mg PO BID #14 tab Patient Education Materials: Facial Fracture (ED) Forms: *Work Release Referrals: Gordon Street MD [Medical Doctor] - Additional Instructions: Follow up with Dr. Street in 1-3 days. RETURN TO THE EMERGENCY DEPARTMENT FOR CHANGING OR WORSENING SYMPTOMS. - Billing Disposition and Condition Condition: STABLE Disposition: Home - Attestation Statements Document Initiated by Scribe: Yes Documenting Scribe: Jonathan Flores Provider For Whom Scribe is Documenting (Include Credential): Jeison Gonzalez MD Scribe Attestation: I, Jonathan Flores, scribed for Jeison Gonzalez MD on 06/26/18 at 1800. Scribe Documentation Reviewed: Yes Provider Attestation: The documentation as recorded by the scribeJonathan accurately reflects the service I personally performed and the decisions made by me, Jeison Gonzalez MD Status of Scribe Document: Viewed Work Excuse - Work Note Work Note: The above employee has been evaluated on 06/26/18. The physician has instructed the employee concerning further work as described below. Work Status: OFF WORK 06/26 [] Jeison Gonzalez [id number]
[2018-06-26 18:11] VITALS: BP 118/71
== END | disposition home or self-care (01) ==
LOC: ED 15:11
DX: S02.82XA Fracture of other specified skull and facial bones, left side, initial encounter for closed fracture (principal); D64.9 Anemia, unspecified; Z87.891 Personal history of nicotine dependence; W00.0XXA Fall on same level due to ice and snow, initial encounter; Y92.9 Unspecified place or not applicable; E03.9 Hypothyroidism, unspecified
CPT/HCPCS: 70450; 70486; 72125; 99283; A9270-GY

== ENCOUNTER 2018-07-12 11:25 | Emergency (ER) | payer OTHER ==
[2018-07-12] MEDS ORDERED: Acetaminophen TAB* 325 MG PO ONE (12:17)
--- NOTE | 2018-07-12 12:27 | ED ---
Throat Pain/Nasal Congestion - HPI Summary HPI Summary: Patient presents with acute loss of vision in her left eye this morning upon waking. She reports she saw nothing out of this eye and in fact thought "my eye was stuck shut". Lights and blurred vision began to return about an hour later. Vision does not feel like it is quite back to normal at this point in time. Patient is status post "isolated fracture involving the medial wall of the left orbit/lamina papyracea" (see CT scan from 06/26/2018). She had sustained a facial injury on this day after slipping on the ice. She was seen here in the ED and diagnosed with said fracture and advised to have close follow-up with Dr. Street. Patient admits she had visual changes in the left eye the day of injury that persisted for 5 days after the injury but had eventually resolved until this morning. She has never experienced complete loss of vision which scared her and brought her in today. Symptoms that she's had since the injury which persist are a left-sided forehead, periorbital and jaw pain which is worse with light exposure. She also reports worsening of symptoms when she' s riding in the car - she's not sure if this is due to trying to focus on moving objects or if the vibration of being in the car is stimulating a WHITAKER d/t concussion from initial injury. She denies numbness, tingling, weakness, slurred speech, difficulty with words or concentration as well as nausea, vomiting. 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 She was seen by Dr. Street (plastic surgeon) and told to follow-up in 2 weeks to see if things improve before further testing or intervention. She reports she was having left medial eye pain with sneezing after injury - this seems to be improving somewhat. She also continues to have blood-streaked mucus from her Lt nare with sneezing and blowing her nose however denies jeny epistaxis. She is still eating and drinking well without difficulty swallowing or jaw pain. She' s been taking Tylenol for pain however she has not taken any this morning. - History of Current Complaint Chief Complaint: EDEyeProblem Time Seen by Provider: 07/12/18 11:36 Hx Obtained From: Patient - Allergies/Home Medications Allergies/Adverse Reactions: Allergies Allergy/AdvReac Type Severity Reaction Status Date / Time sulfamethoxazole Allergy Hives/Diff. Verified 07/12/18 11:31 [From Bactrim] Breathing/I tching trimethoprim [From Bactrim] Allergy Hives/Diff. Verified 07/12/18 11:31 Breathing/I tching oxycodone [From Percocet] AdvReac Intermediate Rash Verified 07/12/18 11:31 PMH/Surg Hx/FS Hx/Imm Hx Previously Healthy: Yes Endocrine/Hematology History: Reports: Hx Thyroid Disease, Hx Anemia - HISTORY OF DURING , NO PROBLEMS, TRANSFUSION WITH LAST 3 CHILDREN Denies: Hx Anticoagulant Therapy, Hx Blood Disorders, Hx Diabetes Cardiovascular History: Denies: Hx Hypertension Respiratory History: Reports: Hx Asthma Denies: Hx Chronic Obstructive Pulmonary Disease (COPD) GI History: Denies: Hx Ulcer Musculoskeletal History: Reports: Hx Arthritis - BILATERAL KNEE AND ANKLES, LEFT GREATER THAN RIGHT Sensory History: Denies: Hx Contacts or Glasses Opthamlomology History: Reports: Hx Vision Problem - Left medial wall orbital fx on 06/26/2018 - visual change, resolved on 07/01 Denies: Hx Contacts or Glasses Neurological History: Reports: Hx Headaches, Hx Migraine, Other Neuro Impairments/Disorders - possible concussion on 06/26/2018? Psychiatric History: Reports: Hx Anxiety - NO MEDICATION, Other Psychiatric Issues/Disorders - sleep disorders possibly due to stress Denies: Hx Eating Disorder, Hx of Violent Episodes Against Others - Surgical History Surgery Procedure, Year, and Place: 2010, , [facility], [facility] [place]. 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 Lives: With Family Alcohol Use: Rare Hx Substance Use: No Substance Use Type: Reports: None Hx Tobacco Use: Yes Smoking Status (MU): Former Smoker Length of Time of Smoking/Using Tobacco: at age 23 Have You Smoked in the Last Year: No Review of Systems Constitutional: Negative Eyes: Other - pain w/ movements Positive: Photophobia, Blurred Vision - see HPI ENT: Other - Lt medial orbit wall pain Cardiovascular: Negative Respiratory: Negative Gastrointestinal: Negative Positive: no symptoms reported Musculoskeletal: Negative Skin: Negative Positive: Headache - as in HPI Psychological: Normal All Other Systems Reviewed And Are Negative: Yes Physical Exam Triage Information Reviewed: Yes Vital Signs On Initial Exam: Initial Vitals Temp Pulse Resp BP Pulse Ox 98.1 F 73 16 109/69 99 07/12/18 11:28 07/12/18 11:28 07/12/18 11:28 07/12/18 11:28 07/12/18 11:28 Vital Signs Reviewed: Yes Appearance: Positive: Well-Appearing - lights are out to prevent worsening of WHITAKER , Well-Nourished Skin: Positive: Warm, Skin Color Reflects Adequate Perfusion, Dry - no erythema , no edema, no ecchymosis about the Lt side of face Head/Face: Positive: Normal Head/Face Inspection - no gross deformity, edema or asymmetry Eyes: Positive: EOMI - pt reports pain in Lt eye w/ lateral gaze and upward gaze , DEREK - photophobia, Conjunctiva Clear, Other: - no hyphema - funduscopic exam difficult d/t pt's intolerance to light exam ENT: Positive: Normal ENT inspection, Hearing grossly normal, Pharynx normal - no bleeding, Nasal congestion, Nasal drainage - patent B/L - no epistaxis or signs of bleeding, TMs normal - no hemotympanum, Uvula midline. Negative: Tonsillar swelling, Tonsillar exudate, Trismus, Muffled voice, Hoarse voice Dental: Negative: Dental Fracture @ Neck: Positive: Supple, Nontender - FROM Respiratory/Lung Sounds: Positive: Breath Sounds Present Cardiovascular: Positive: Normal Musculoskeletal: Positive: Normal, Strength/ROM Intact Neurological: Positive: Sensory/Motor Intact, Alert, Oriented to Person Place, Time, CN Intact II-III, Other - all 4 visual webster intact B/L Psychiatric: Positive: Normal - Eric Coma Scale Best Eye Response: 4 - Spontaneous Best Motor Response: 6 - Obeys Commands Best Verbal Response: 5 - Oriented Coma Scale Total: 15 Diagnostics - Vital Signs Vital Signs Temp Pulse Resp BP Pulse Ox 07/12/18 11:28 98.1 F 73 16 109/69 99 - Laboratory Lab Statement: Any lab studies that have been ordered have been reviewed, and results considered in the medical decision making process. EENT Course/Dx - Course Course Of Treatment: Patient presents w/ waking w/ abrupt complete visual loss in Left eye this morning around 8:45am - this improved to pt having light and now blurred vision at 9:50am. She sustained a Left orbital fracture on 06/26 and has been following with a plastic surgeon who advised no intervention but to f/ u in 2 weeks. With new onset of symptoms without provocation this morning, concerned for hemorrhage, entrapment, nerve injury, etc. Discussed w/ Dr. Simpson and pt who agree evaluation at [facility] is warranted. Pt appears stable at this time so will ride up in private vehicle with her father. She is requesting an eye patch to reduce ocular stimulation during the drive today - this was provided only for use today and explained this may not be appropriate for senior living use. She agrees to be seen at the ED today and consult w/ ophthomology as recommended. Pt discharged in stable condition. Spoke w/ Dr. Paz at [facility] ED who is aware of patient's injury and sx. - Diagnoses Provider Diagnoses: Sudden visual loss, left eye, Left orbit fracture Discharge - Sign-Out/Discharge Documenting (check all that apply): Patient Departure - Discharge Plan Condition: Stable Disposition: HOME-RECOMMEND TO ED Additional Instructions: Due to abrupt visual loss in the face of a Left orbit fracture, go directly to [facility] Emergency Department in [facility] Address: [address] [place] [address] Take your reports and CD disc of CT images to ED with you - Billing Disposition and Condition Condition: STABLE Disposition: Home-Recommend to ED
[2018-07-12 13:02] VITALS: BP 110/72
== END 2018-07-12 13:01 | disposition home health service (06) ==
LOC: ED 11:25
DX: H53.132 Sudden visual loss, left eye (principal); S02.8 Fractures of other specified skull and facial bones; R51 Headache; H53.8 Other visual disturbances; Z87.891 Personal history of nicotine dependence; X58.XXXS Exposure to other specified factors, sequela; Z88.2 Allergy status to sulfonamides
CPT/HCPCS: 99282; A9270-GY

== ENCOUNTER 2018-07-25 18:37 | Emergency (ER) | payer OTHER ==
[2018-07-25 18:47] VITALS: BP 110/71
--- NOTE | 2018-07-25 18:55 | UC ---
Lower Extremity/Ankle HPI - HPI Summary HPI Summary: 27 year old female presents with right little toe and lateral foot pain. States tonight at work at around 17:20 her foot was accidentally run over by a shopping cart. Complains of pain to right little toe and over the 5th metatarsal. She was able to bear weight immediately after the injury and in the clinic. States pain is worse with weight bearing and ambulation. Non-radiating. Denies numbness or tingling. - History of Current Complaint Chief Complaint: UCLowerExtremity Stated Complaint: FOOT INJURY Time Seen by Provider: 07/25/18 18:42 Hx Obtained From: Patient Hx Last Menstrual Period: <1 WEEK AGO Pain Intensity: 8 - Allergies/Home Medications Allergies/Adverse Reactions: Allergies Allergy/AdvReac Type Severity Reaction Status Date / Time sulfamethoxazole Allergy Hives/Diff. Verified 07/25/18 18:47 [From Bactrim] Breathing/I tching trimethoprim [From Bactrim] Allergy Hives/Diff. Verified 07/25/18 18:47 Breathing/I tching oxycodone [From Percocet] AdvReac Intermediate Rash Verified 07/25/18 18:47 Home Medications: Home Medications Naproxen Sodium [Aleve] 220 mg PO ONCE PRN 07/25/18 [History Confirmed 07/25/18] PMH/Surg Hx/FS Hx/Imm Hx Endocrine History: Hypothyroidism Respiratory History: Asthma Neurological History: Migraine - Surgical History Surgical History: Yes Surgery Procedure, [facility] and [facility] AND CURETTAGE - Family History Known Family History: Positive: Cardiac Disease - Social History Occupation: Employed Full-time Lives: Alone Alcohol Use: None Substance Use Type: None Smoking Status (MU): Former Smoker Length of Time of Smoking/Using Tobacco: at age 23 Have You Smoked in the Last Year: No - Immunization History Most Recent Influenza Vaccination: last year Most Recent Tetanus Shot: n/a Most Recent Pneumonia Vaccination: n/a Review of Systems All Other Systems Reviewed And Are Negative: Yes Skin: Negative: Bruising Respiratory: Positive: Negative Cardiovascular: Positive: Negative Gastrointestinal: Positive: Negative Genitourinary: Positive: Negative Neurovascular: Negative: Decreased Sensation Musculoskeletal: Positive: Decreased ROM - right 5th toe d/t pain, Other: - See HPI. Negative: Edema Neurological: Positive: Negative Is Patient Immunocompromised?: No Physical Exam - Summary Physical Exam Summary: GENERAL APPEARANCE: Well developed, well nourished, alert and cooperative, and appears to be in no acute distress. CARDIAC: Normal S1 and S2. No S3, S4 or murmurs. Rhythm is regular. There is no peripheral edema, cyanosis or pallor. Extremities are warm and well perfused. Capillary refill is less than 2 seconds. Peripheral pulses intact. LUNGS: Clear to auscultation without rales, rhonchi, wheezing or diminished breath sounds. ABDOMEN: Positive bowel sounds. Soft, nondistended, nontender. No guarding or rebound. No masses or hepatosplenomegally. MUSKULOSKELETAL: Tenderness to right 5th toe and over the distal 5th metatarsal. No erythema, ecchymosis, lesions, or gross deformity noted. NEUROLOGICAL: Sensation intact. SKIN: Skin normal color, texture and turgor with no lesions or eruptions. Triage Information Reviewed: Yes Vital Signs: Initial Vital Signs Temp 97.3 F 07/25/18 18:43 Pulse 79 07/25/18 18:43 Resp 16 07/25/18 18:43 BP 110/71 07/25/18 18:43 Pulse Ox 97 07/25/18 18:43 Vital Signs Reviewed: Yes Diagnostics - Radiology No standard instances Radiology Interpretation Completed By: ED Physician - No fracture or dislocation noted. Lower Extremity Course/Dx - Course Course Of Treatment: 27 year old female presents with right little toe and lateral foot pain. States tonight at work at around 17:20 her foot was accidentally run over by a shopping cart. Complains of pain to right little toe and over the 5th metatarsal. She was able to bear weight immediately after the injury and in the clinic. States pain is worse with weight bearing and ambulation. Non-radiating. Denies numbness or tingling. Afebrile. VSS. Exam revealed tenderness to right 5th toe and over the distal 5th metatarsal without erythema, ecchymosis, or gross deformity. X-ray showed no fracture or dislocation. Patient was placed in a post-op shoe and recommended conservative treatment with RICE and OTC analgesics. She is to follow up with Dr. Maya, occupational medicince, in 7 days if symptoms do not improve. Verbalizes understanding and agrees with POC. - Differential Dx/Diagnosis Differential Diagnosis/HQI/PQRI: Contusion, Fracture (Closed), Sprain, Strain Provider Diagnosis: Contusion of right foot Discharge - Sign-Out/Discharge Documenting (check all that apply): Patient Departure All imaging exams completed and their final reports reviewed: No - Discharge Plan Condition: Stable Disposition: HOME Patient Education Materials: Contusion in Adults (ED) Forms: *Work Release Referrals: Bernardo Harry MD [Primary Care Provider] - Brendan Maya MD [Medical Doctor] - 7 Days (If no improvement in symptoms.) Additional Instructions: Your x-ray performed in the clinic today showed no evidence of fracture. The x- ray will be reviewed by the radiologist tomorrow and we will contact you if they see something that would change your plan of care. Wear the post-op shoe for comfort and support until you are pain-free. Rest the foot as much as possible. You may continue to walk and bear weight as tolerated. Apply ice to the affected area for 15-20 minutes 4 times a day for next few days. Keep the foot elevated while sitting to help reduce swelling. Take acetaminophen (Tylenol), ibuprofen (Advil, Motrin), or naproxen (Aleve) according to directions as needed for pain. Follow up with Dr. Maya, occupational medicine, in 7 days if symptoms do not improve. Call for appointment. - Billing Disposition and Condition Condition: STABLE Disposition: Home
--- NOTE | 2018-07-26 14:48 | UC ---
- Progress Note Progress Note: RADIOLOGY REPORT REVIEWED. CONFIRMED NO FRACTURE. NO CHANGE IN MGMT Course/Dx - Diagnoses Provider Diagnoses: Contusion of right foot Discharge - Sign-Out/Discharge Documenting (check all that apply): Post-Discharge Follow Up All imaging exams completed and their final reports reviewed: Yes - Discharge Plan Condition: Stable Disposition: HOME Patient Education Materials: Contusion in Adults (ED) Forms: *Work Release Referrals: Bernardo Harry MD [Primary Care Provider] - Brendan Maya MD [Medical Doctor] - 7 Days (If no improvement in symptoms.) Additional Instructions: Your x-ray performed in the clinic today showed no evidence of fracture. The x- ray will be reviewed by the radiologist tomorrow and we will contact you if they see something that would change your plan of care. Wear the post-op shoe for comfort and support until you are pain-free. Rest the foot as much as possible. You may continue to walk and bear weight as tolerated. Apply ice to the affected area for 15-20 minutes 4 times a day for next few days. Keep the foot elevated while sitting to help reduce swelling. Take acetaminophen (Tylenol), ibuprofen (Advil, Motrin), or naproxen (Aleve) according to directions as needed for pain. Follow up with Dr. Maya, occupational medicine, in 7 days if symptoms do not improve. Call for appointment. - Billing Disposition and Condition Condition: STABLE Disposition: Home
== END 2018-07-25 19:15 | disposition home or self-care (01) ==
LOC: UCEAST 18:37
DX: S90.31XA Contusion of right foot, initial encounter (principal); J45.909 Unspecified asthma, uncomplicated; Z88.2 Allergy status to sulfonamides; Z88.5 Allergy status to narcotic agent; Z87.891 Personal history of nicotine dependence; W22.8XXA Striking against or struck by other objects, initial encounter; Y92.9 Unspecified place or not applicable; Y99.0 Civilian activity done for income or pay
CPT/HCPCS: 99211; G0463

== ENCOUNTER 2018-10-20 14:15 | Emergency (ER) | payer OTHER ==
--- OUTSIDE RECORDS SUMMARY | 2018-10-20 14:21 | XMS REPORT | Continuity of Care Document ---
:1990 External Reference #:[id number] Author Name Blas Gayle N.P. Address [address] [place] [address] Care Team Providers Name Role Phone Charlie Orozco M.D. 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 Payers Date Identification Numbers Payment Provider Subscriber Effective: 2018 Policy Number: [id number] [facility] Sandra Mejía PayID: [id number] [address] [place] [address] Policy Number: [id number] [employer] Sandra Mejía PayID: [id number] [address] [place] [address] Advance Directives Description No Information Available Problems Description No Information Family History Date Family Member(s) Observation Comments General Breast Cancer General Ovarian Cancer Father 46 Father Unknown Mother 50 Mother Ovarian Cancer Children 6 First Son 11 Second Son 7 Third Son 6 First Daughter 10 Second Daughter 3 Third Daughter 2 Siblings Several Siblings 8 Social History Type Date Description Comments Sex Unknown Marital Status Lives With Children Work Status Part-Time Employment ETOH Use Occasionally consumes alcohol Tobacco Use Start: Unknown End: Patient is a former smoker Unknown Recreational Drug Use Denies Drug Use Allergies, Adverse Reactions, Alerts Date Description Reaction Status Severity Comments 08/25/2018 Percocet Active 08/25/2018 Bactrim Active Medications Medication Date Status Form Strength Qnty SIG Indications Ordering Provider Ondansetron HCL Active Tablets 4mg 60tabs take one F07.81 Ernesto , 019 tablet by danya Aguilar M.D. every 4 hours as needed (maximum daily dose=6) Levothyroxine Active Tablets 125mcg 30tabs take one E03.9 Ernesto , Sodium 019 tablet by Charlie Rodríguez, mouth M.DJabier every morning Ibuprofen Active Tablets 600mg 90tabs take one G43.119 Ernesto, 019 tablet by Charlie Rodríguez, mouth M.DJabier three times daily with food prn Migraine Aura Aripiprazole Active Tablets 10mg 30tabs 1 by mouth F31.81 Ernesto , 019 every day Charlie Rodríguez M.D. Amitriptyline Active Tablets 10mg Unknown HCL 000 Azithromycin Hx Tablets 250mg 6tabs z isaías uad J20.9 Ernesto, 019 - Charlie Rodríguez Alberto 019 Levothyroxine Hx Tablets 150mcg 90tabs 1 by mouth E03.9 Ernesto, Sodium 000 - every day Charlie Rodríguez, MEarnest 019 Immunizations Description No Information Available Vital Signs Date Vital Result Comment 10/07/2018 9:25am BP Systolic 108 mmHg BP Diastolic 60 mmHg Height 61 inches 5'1" Weight 134.00 lb BMI (Body Mass Index) 25.3 kg/m2 Heart Rate 69 /min Respiratory Rate 18 /min 09/23/2018 9:21am BP Systolic 118 mmHg BP Diastolic 75 mmHg Height 61 inches 5'1" Weight 132.00 lb BMI (Body Mass Index) 24.9 kg/m2 Heart Rate 80 /min Respiratory Rate 16 /min 09/09/2018 8:37am BP Systolic 118 mmHg BP Diastolic 80 mmHg Height 61 inches 5'1" Weight 128.00 lb BMI (Body Mass Index) 24.2 kg/m2 Heart Rate 104 /min Respiratory Rate 16 /min 09/02/2018 9:29am BP Systolic 118 mmHg BP Diastolic 78 mmHg Height 61 inches 5'1" Weight 131.00 lb BMI (Body Mass Index) 24.7 kg/m2 Heart Rate 62 /min Respiratory Rate 16 /min 08/25/2018 9:48am BP Systolic 108 mmHg BP Diastolic 62 mmHg Height 61 inches 5'1" Weight 131.00 lb BMI (Body Mass Index) 24.7 kg/m2 Heart Rate 81 /min Respiratory Rate 16 /min Results Test Date Facility Test Result H/L Range Note CBC With Diff 09/23/2018 [facility] WBC 3.7 10*3/uL Low (4.1-11.0) [address] (607)- - RBC 4.36 10*6/uL (4.00-5.40) HGB 10.6 g/dL Low (12.0-16.0) HCT 33.1 % Low (36.0-47.0) MCV 76.0 fL Low (80.0-95.0) MCH 24.4 pg Low (27.0-32.0) MCHC 32.1 g/dL (32.0-36.0) RDW 14.7 % High (10.5-14.5) PLT 195 10*3/uL (150-450) MPV 9.8 fL (7.1-10.7) Neut % 57.5 % (35.0-75.0) Lymph % 29.9 % (16.0-52.0) [facility] % 10.6 % High (0.0-8.0) Eos % 1.3 % (0.0-5.0) Baso % 0.7 % (0.0-4.0) Neut # 2.1 10*3/uL (1.8-7.7) Lymph # 1.1 10*3/uL Low (1.2-4.8) [facility] # 0.4 10*3/uL (0.0-0.8) Eos # 0.0 10*3/uL (0.0-0.5) Baso # 0.0 10*3/uL (0.0-0.2) CMP 09/23/2018 [facility] Sodium 141 mmol/L (136-145) [address] (607)- - Potassium 4.4 mmol/L (3.6-5.2) Chloride 108 mmol/L (100-108) Co2 28 mmol/L (22-31) Anion Gap 5 mmol/L Low (7-16) Urea Nitrogen 15 mg/dL (7-24) Creatinine 0.60 mg/dL (0.60-1.00) BUN/Creat Ratio 25.0 RATIO High (10.0-20.0) Glucose 81 mg/dL (70-99) Calcium 8.4 mg/dL (8.4-10.2) Total Protein 7.1 g/dL (6.4-8.2) Albumin 3.9 g/dL (3.5-4.6) Globulin 3.2 g/dL (2.7-4.3) Alb/Glob Ratio 1.2 RATIO Alkaline Phosphatase 68 U/L (45-117) Bilirubin,Total 0.3 mg/dL (0.0-1.0) Ast (Sgot) 17 U/L (11-39) Alt (SGPT) 24 U/L (12-78) GFR >60 ml/min/1.73m2 (>59) GFR ( Amer) >60 ml/min/1.73m2 (>59) GFR Interpretation <SEE NOTE> 1 Laboratory test 09/23/2018 [facility] Free Thyroxine 1.56 ng/dL High ( 0.76-1.46) finding [address] @ (607)- - TSH,Ultrasensitive @ 0.456 mIU/L (0.360-4.170) 2 CBC With Diff 08/25/2018 [facility] WBC 4.7 10*3/uL (4.1-11.0) [address] (607)- - RBC 4.38 10*6/uL (4.00-5.40) HGB 11.0 g/dL Low (12.0-16.0) HCT 34.9 % Low (36.0-47.0) MCV 79.6 fL Low (80.0-95.0) MCH 25.0 pg Low (27.0-32.0) MCHC 31.4 g/dL Low (32.0-36.0) RDW 14.8 % High (10.5-14.5) PLT 219 10*3/uL (150-450) MPV 9.8 fL (7.1-10.7) Neut % 56.3 % (35.0-75.0) Lymph % 33.7 % (16.0-52.0) [place] % 7.9 % (0.0-8.0) Eos % 1.5 % (0.0-5.0) Baso % 0.6 % (0.0-4.0) Neut # 2.6 10*3/uL (1.8-7.7) Lymph # 1.6 10*3/uL (1.2-4.8) [place] # 0.4 10*3/uL (0.0-0.8) Eos # 0.1 10*3/uL (0.0-0.5) Baso # 0.0 10*3/uL (0.0-0.2) CMP 08/25/2018 [facility] Sodium 140 mmol/L (136-145) [address] (607)- - Potassium 4.1 mmol/L (3.6-5.2) Chloride 106 mmol/L (100-108) Co2 27 mmol/L (22-31) Anion Gap 7 mmol/L (7-16) Urea Nitrogen 14 mg/dL (7-24) Creatinine 0.73 mg/dL (0.60-1.00) BUN/Creat Ratio 19.2 RATIO (10.0-20.0) Glucose 77 mg/dL (70-99) Calcium 8.3 mg/dL Low (8.4-10.2) Total Protein 7.4 g/dL (6.4-8.2) Albumin 4.0 g/dL (3.5-4.6) Globulin 3.4 g/dL (2.7-4.3) Alb/Glob Ratio 1.2 RATIO Alkaline Phosphatase 55 U/L (45-117) Bilirubin,Total 0.4 mg/dL (0.0-1.0) Ast (Sgot) 22 U/L (11-39) Alt (SGPT) 20 U/L (12-78) GFR >60 ml/min/1.73m2 (>59) GFR ( Amer) >60 ml/min/1.73m2 (>59) GFR Interpretation <SEE NOTE> 3 Laboratory 08/25/2018 [facility] TSH,Ultrasensitive @ 33.900 High ( 0.360-4.170) test finding [address] mIU/L (607)- - Free Thyroxine @ 0.68 ng/dL Low (0.76-1.46) Lipid 08/25/2018 [facility] Cholesterol @ 199 mg/dL (0-200) [address] (607)- - Triglyceride @ 69 mg/dL (30-200) HDL Cholesterol @ 60 mg/dL (>40) 4 Chol/HDL Ratio 3.3 RATIO 5 LDL Chol (Calc) 125 mg/dL (<130) 6 Laboratory test 08/25/2018 [facility] 25 Hydroxy Vit 14 ng/mL Low (31- 100) 7 finding Liana Ramos @ (437)- - 1 NORMAL KIDNEY FUNCTION OR MILD DISEASE - GFR >OR=60 CHRONIC KIDNEY DISEASE - GFR 15 - 59 RENAL FAILURE - GFR <15 Est. GFR calculation based on the MDRD study equation, which assumes a steady state for creatinine. Est. GFR should not be used for medication dosing. 2 RESULT VERIFIED BY REPEAT TESTING. 3 NORMAL KIDNEY FUNCTION OR MILD DISEASE - GFR >OR=60 CHRONIC KIDNEY DISEASE - GFR 15 - 59 RENAL FAILURE - GFR <15 Est. GFR calculation based on the MDRD study equation, which assumes a steady state for creatinine. Est. GFR should not be used for medication dosing. 4 PER NCEP ATP III GUIDELINES: RESULTS LOWER THAN 40 MG/DL ARE SUGGESTIVE OF INCREASED RISK FOR CORONARY ARTERY DISEASE. RESULTS > OR=TO 60 MG/DL ARE CONSIDERED A NEGATIVE RISK FACTOR. 5 INTERPRETATION OF CHOL-HDL RATIO CHD RISK FEMALE MALE VERY HIGH >8.3 >14.3 HIGH 5.6- 8.3 6.7- 14.3 AVERAGE 3.7- 5.6 4.0- 6.7 BELOW AVERAGE 2.5- 3.7 2.7- 4.0 PROTECTED <2.5 <2.7 6 PER NCEP ATP III GUIDELINES: OPTIMAL < 100 NEAR OPTIMAL 100 - 129 BORDERLINE HIGH 130 - 159 HIGH 160 - 189 VERY HIGH > 189 7 A REVIEW OF THE LITERATURE SUGGESTS THE FOLLOWING RANGES FOR THE CLASSIFICATION OF 25-OH VITAMIN D STATUS: VITAMIN D STATUS 25-OH VITAMIN D DEFICIENCY <20 NG/ML INSUFFICIENCY 20-30 NG/ML SUFFICIENCY 31 - 100 NG/ML TOXICITY > 100 NG/ML A PEDIATRIC REFERENCE RANGE HAS NOT BEEN ESTABLISHED USING THIS METHOD. Procedures Date Code Description Status 08/25/2018 15307 Visual Screening Test Completed 08/25/2018 24309 Audiometry, Bekesy, Screening Completed Encounters Type Date Location Provider Dx Diagnosis Office Visit 10/07/2018 [facility] Blas Gayle, E03.9 Hypothyroidism, 10:00a N.P. unspecified I10 Essential (primary) hypertension N39.46 Mixed incontinence N20.9 Urinary calculus, unspecified K59.00 Constipation, unspecified K64.9 Unspecified hemorrhoids L20.9 Atopic dermatitis, unspecified J30.9 Allergic rhinitis, unspecified F41.9 Anxiety disorder, unspecified G47.00 Insomnia, unspecified F90.0 Attn-defct hyperactivity disorder, predom inattentive type F31.81 Bipolar II disorder E55.9 Vitamin D deficiency, unspecified G43.119 Migraine with aura, intractable, without status migrainosus S02.82xD Fracture of oth skull and facial bones, left side, 7thD F07.81 Postconcussional syndrome J02.9 Acute pharyngitis, unspecified J20.9 Acute bronchitis, unspecified Office Visit 09/23/2018 9:30a [facility] Blas Gayle, E03.9 Hypothyroidism, N.P. unspecified I10 Essential (primary) hypertension N39.46 Mixed incontinence N20.9 Urinary calculus, unspecified K59.00 Constipation, unspecified K64.9 Unspecified hemorrhoids L20.9 Atopic dermatitis, unspecified J30.9 Allergic rhinitis, unspecified F41.9 Anxiety disorder, unspecified G47.00 Insomnia, unspecified F90.0 Attn-defct hyperactivity disorder, predom inattentive type F31.81 Bipolar II disorder E55.9 Vitamin D deficiency, unspecified G43.119 Migraine with aura, intractable, without status migrainosus S02.82xD Fracture of oth skull and facial bones, left side, 7thD F07.81 Postconcussional syndrome J02.9 Acute pharyngitis, unspecified J20.9 Acute bronchitis, unspecified Office Visit 09/09/2018 9:15a [facility] Blas Gayle, E03.9 Hypothyroidism, N.P. unspecified I10 Essential (primary) hypertension N39.46 Mixed incontinence N20.9 Urinary calculus, unspecified K59.00 Constipation, unspecified K64.9 Unspecified hemorrhoids L20.9 Atopic dermatitis, unspecified J30.9 Allergic rhinitis, unspecified F41.9 Anxiety disorder, unspecified G47.00 Insomnia, unspecified F90.0 Attn-defct hyperactivity disorder, predom inattentive type F31.81 Bipolar II disorder E55.9 Vitamin D deficiency, unspecified G43.119 Migraine with aura, intractable, without status migrainosus S02.82xD Fracture of oth skull and facial bones, left side, 7thD F07.81 Postconcussional syndrome J02.9 Acute pharyngitis, unspecified J20.9 Acute bronchitis, unspecified Office Visit 09/02/2018 9:45a [facility] Blas Gayle, E03.9 Hypothyroidism, N.P. unspecified I10 Essential (primary) hypertension N39.46 Mixed incontinence N20.9 Urinary calculus, unspecified K59.00 Constipation, unspecified K64.9 Unspecified hemorrhoids L20.9 Atopic dermatitis, unspecified J30.9 Allergic rhinitis, unspecified F41.9 Anxiety disorder, unspecified G47.00 Insomnia, unspecified F90.0 Attn-defct hyperactivity disorder, predom inattentive type F31.81 Bipolar II disorder E55.9 Vitamin D deficiency, unspecified G43.119 Migraine with aura, intractable, without status migrainosus S02.82xD Fracture of oth skull and facial bones, left side, 7thD F07.81 Postconcussional syndrome Office Visit 08/25/2018 9:45a [facility] Charlie Orozco Z00.01 Encounter for Alberto Rodríguez general adult medical exam w abnormal findings E03.9 Hypothyroidism, unspecified I10 Essential (primary) hypertension N39.46 Mixed incontinence N20.9 Urinary calculus, unspecified K59.00 Constipation, unspecified K64.9 Unspecified hemorrhoids L20.9 Atopic dermatitis, unspecified J30.9 Allergic rhinitis, unspecified F41.9 Anxiety disorder, unspecified G47.00 Insomnia, unspecified F90.0 Attn-defct hyperactivity disorder, predom inattentive type F31.81 Bipolar II disorder E55.9 Vitamin D deficiency, unspecified Plan of Treatment Future Appointment(s):11/18/2018 9:00 am - Blas Gayle N.P. at [facility]
--- OUTSIDE RECORDS SUMMARY | 2018-10-20 14:21 | XMS REPORT | Continuity of Care Document ---
:1990 External Reference #:[id number] Author Name Blas Gayle N.P. Address [address] [facility] [address] [place] [address] Care Team Providers Name Role Phone Charlie Orozco M.D. Care Team Information Speech Correction Assistant Unavailable Payers Date Identification Numbers Payment Provider Subscriber Effective: 2018 Policy Number: [id number] [facility] Sandra Mejía PayID: [id number] [address] [place] [address] Policy Number: [id number] Medicaid/[employer] Sandra Mejía PayID: [id number] [address] [place] [address] Advance Directives Description No Information Available Problems [...] Form Strength Qnty SIG Indications Ordering Provider Ibuprofen Active Tablets 600mg 90tabs take one G43.119 Ernesto, 019 tablet by danya Aguilar MEarnest three times daily with food prn Migraine Aura Aripiprazole Active Tablets 10mg 30tabs 1 by mouth F31.81 Ernesto , 019 every day Charlie Rodríguez M.D. Levothyroxine Active Tablets 150mcg 90tabs 1 by mouth E03.9 Ernesto Sodium 000 every day Charlie Rodríguez M.D. Amitriptyline Active Tablets 10mg Unknown HCL 000 Azithromycin Hx Tablets 250mg 6tabs z isaías uad J20.9 Ernesto, 019 - Charlie Rodríguez Alberto 019 Immunizations Description No Information Available Vital Signs Date Vital Result Comment 09/23/2018 9:21am BP Systolic 118 mmHg BP [...] Date Facility Test Result H/L Range Note Laboratory test 09/23/2018 [facility] T4 Free - <pending> finding [address] Thyroxine (607)- - TSH, Ultrasenstive <pending> CBC With Diff 08/25/2018 [facility] WBC 4.7 10*3/uL (4.1-11.0) [address] (607)- - RBC 4.38 10*6/uL (4.00-5.40) HGB 11.0 g/dL Low (12.0-16.0) HCT 34.9 % Low (36.0-47.0) MCV 79.6 fL Low (80.0-95.0) MCH 25.0 pg Low (27.0-32.0) MCHC 31.4 g/dL Low (32.0-36.0) RDW 14.8 % High (10.5-14.5) PLT 219 10*3/uL (150-450) MPV 9.8 fL (7.1-10.7) Neut % 56.3 % (35.0-75.0) Lymph % 33.7 % (16.0-52.0) [place] % 7.9 % (0.0-8.0) Eos % 1.5 % (0.0-5.0) Baso % 0.6 % (0.0-4.0) Neut # 2.6 10*3/uL (1.8-7.7) Lymph # 1.6 10*3/uL (1.2-4.8) [place] # 0.4 10*3/uL (0.0-0.8) Eos # 0.1 10*3/uL (0.0-0.5) Baso # 0.0 10*3/uL (0.0-0.2) CMP 08/25/2018 [facility] Sodium 140 mmol/L (136-145) [address] [...] (>59) GFR Interpretation <SEE NOTE> 1 Laboratory 08/25/2018 [email or web address] TSH,Ultrasensitive @ 33.900 High ( 0.360-4.170) test finding [address] mIU/L (607)- - Free Thyroxine @ 0.68 ng/dL Low (0.76-1.46) Lipid 08/25/2018 [facility] Cholesterol @ 199 mg/dL (0-200) [address] (607)- - Triglyceride @ 69 mg/dL (30-200) HDL Cholesterol @ 60 mg/dL (>40) 2 Chol/HDL Ratio 3.3 RATIO 3 LDL Chol (Calc) 125 mg/dL (<130) 4 Laboratory test 08/25/2018 [email or web address] 25 Hydroxy Vit 14 ng/mL Low (31- 100) 5 finding [address] D @ (607)- - 1 NORMAL KIDNEY FUNCTION OR MILD DISEASE - GFR >OR=60 CHRONIC KIDNEY DISEASE - GFR 15 - 59 RENAL FAILURE - GFR <15 Est. GFR calculation based on the MDRD study equation, which assumes a steady state for creatinine. Est. GFR should not be used for medication dosing. 2 PER NCEP ATP III GUIDELINES: RESULTS LOWER THAN 40 MG/DL ARE SUGGESTIVE OF INCREASED RISK FOR CORONARY ARTERY DISEASE. RESULTS > OR=TO 60 MG/DL ARE CONSIDERED A NEGATIVE RISK FACTOR. 3 INTERPRETATION OF CHOL-HDL RATIO CHD RISK FEMALE MALE VERY HIGH >8.3 >14.3 HIGH 5.6- 8.3 6.7- 14.3 AVERAGE 3.7- 5.6 4.0- 6.7 BELOW AVERAGE 2.5- 3.7 2.7- 4.0 PROTECTED <2.5 <2.7 4 PER NCEP ATP III GUIDELINES: OPTIMAL < 100 NEAR OPTIMAL 100 - 129 BORDERLINE HIGH 130 - 159 HIGH 160 - 189 VERY HIGH > 189 5 A REVIEW OF THE LITERATURE SUGGESTS THE FOLLOWING RANGES FOR THE CLASSIFICATION OF 25-OH VITAMIN D STATUS: VITAMIN D STATUS 25-OH VITAMIN D DEFICIENCY <20 NG/ML INSUFFICIENCY 20-30 NG/ML SUFFICIENCY 31 - 100 NG/ML TOXICITY > 100 NG/ML A PEDIATRIC REFERENCE RANGE HAS NOT BEEN ESTABLISHED USING THIS METHOD. Procedures Date Code Description Status 08/25/2018 07275 Visual Screening Test Completed 08/25/2018 31514 Audiometry, Bekesy, Screening Completed Encounters Type Date Location Provider Dx Diagnosis Office Visit 09/09/2018 [facility] Blas Gayle, E03.9 Hypothyroidism, 9:15a N.P. unspecified I10 Essential (primary) hypertension N39.46 [...] Acute bronchitis, unspecified Office Visit 09/02/2018 9:45a [facility] Blas Gayle, E03.9 Hypothyroidism, N.P. unspecified I10 [...] F07.81 Postconcussional syndrome Office Visit 08/25/2018 9:45a [facility] Charlie Orozco Z00.01 Encounter for Alberto Rodríguez [...] D deficiency, unspecified Plan of Treatment Future Appointment(s):10/07/2018 10:00 am - Blas Gayle N.P. at [facility]
[2018-10-20 14:25] VITALS: BP 125/81
--- NOTE | 2018-10-20 14:27 | UC ---
Complaint Female HPI - HPI Summary HPI Summary: 27 yo female presents with abnormal uterine bleeding for the last 2 months. She tells me that she has a hx of tubal ligation with ectopic both before and after her tubal. She says she gets her period on the of every month. Was normal on 08/07. On 09/07 she had a very light period that did not last very long. On 10/05 she had 1 hour of light pink/red spotting and nothing else. For the last 4-6 weeks she has also been having intermittent right sided pelvic pain. She is sexually active, but denies STD risk or concern about that today. No vaginal discharge, rash, or lesion, no abdominal pain, n/v, dysuria, or flank pain. She has taken multiple home tests which were negative. - History Of Current Complaint Chief Complaint: UCGU Stated Complaint: PERSONAL Time Seen by Provider: 10/20/18 14:27 Hx Obtained From: Patient Hx Last Menstrual Period: 09/09/18 Onset/Duration: Gradual Onset Timing: Constant Severity Initially: Mild Severity Currently: Mild Pain Intensity: 4 Pain Scale Used: 0-10 Numeric - Allergies/Home Medications Allergies/Adverse Reactions: Allergies Allergy/AdvReac Type Severity Reaction Status Date / Time sulfamethoxazole Allergy Hives/Diff. Verified 10/20/18 14:25 [From Bactrim] Breathing/I tching trimethoprim [From Bactrim] Allergy Hives/Diff. Verified 10/20/18 14:25 Breathing/I tching oxycodone [From Percocet] AdvReac Intermediate Rash Verified 10/20/18 14:25 Home Medications: Home Medications Pain Medication 20 mg PO DAILY 10/20/18 [History Confirmed 10/20/18] diphenhydrAMINE HCl [Sleep Aid] 25 mg PO QPM 10/20/18 [History Confirmed ] PMH/Surg Hx/FS Hx/Imm Hx Endocrine History: Hypothyroidism Other History Of: Negative For: Anticoagulant Therapy - Surgical History Surgical History: Yes Surgery Procedure, Year, and Place: 2010, , [facility] [place] AND CURETT[place] - Family History Known Family History: Positive: Cardiac Disease, Other - No malignant hyperthermia, no anesthesia rxn, mood disorder - Social History Lives: With Family Alcohol Use: None Substance Use Type: None Smoking Status (MU): Former Smoker Length of Time of Smoking/Using Tobacco: at age 23 Have You Smoked in the Last Year: No - Immunization History Most Recent Influenza Vaccination: last year Most Recent Tetanus Shot: n/a Most Recent Pneumonia Vaccination: n/a Review of Systems All Other Systems Reviewed And Are Negative: Yes Constitutional: Positive: Negative Skin: Positive: Negative Respiratory: Positive: Negative Cardiovascular: Positive: Negative Gastrointestinal: Positive: Negative Genitourinary: Positive: Abnormal Bleeding Motor: Positive: Negative Neurovascular: Positive: Negative Neurological: Positive: Negative Psychological: Positive: Negative Physical Exam - Summary Physical Exam Summary: GENERAL: NAD. WDWN. No pain distress. SKIN: No rashes, sores, lesions, or open wounds. NECK: Supple. Nontender. No lymphadenopathy. CHEST: CTAB. No r/r/w. No accessory muscle use. Breathing comfortably and in no distress. CV: RRR. Without m/r/g. Pulses intact. Cap refill <2seconds ABDOMEN: Soft. NTTP. No distention or guarding. No CVA tenderness. Bowel sounds present NEURO: Alert. PSYCH: Age appropriate behavior. Triage Information Reviewed: Yes Vital Signs: Initial Vital Signs Temp 97.7 F 10/20/18 14:19 Pulse 90 10/20/18 14:19 Resp 18 10/20/18 14:19 BP 125/81 10/20/18 14:19 Pulse Ox 100 10/20/18 14:19 Laboratory Tests 10/20/18 15:55 POC Urine Color Yellow POC Urine Clarity Clear POC Urine pH 7.0 POC Ur Specif Tarrs 1.025 POC Urine Protein Negative POC Ur Glucose (UA) Negative POC Urine Ketones Negative POC Urine Blood Negative POC Urine Nitrite Negative POC Urine Bilirubin Negative POC Urine Urobilinogen 1.0 POC U Leukocyte Esteras Trace A Vital Signs Reviewed: Yes Complaint Female Dx - Course Course Of Treatment: US: IMPRESSION: #. 1.6 x 1.2 x 1.3 cm partially anechoic lesion at the LEFT ovary with low- level internal echoes, some inward directed margins, and devoid of intrinsic vascularity on Doppler most consistent with an involuting hemorrhagic cyst. This lesion is very low suspicion based on small size. #. Normal thickness endometrium. No focal uterine lesions evident. #. Physiologic small volume of free fluid. Declined pelvic exam today. UA with trace leuks - she is having no urinary symptoms, thus will await urine culture and treat if necessary. Discussed results with pt. She was relieved to hear that she did not have another ectopic . She wishes to follow up with her OBGYN later this month as she had previously scheduled. - Differential Dx/Diagnosis Provider Diagnosis: Hemorrhagic ovarian cyst, Abnormal uterine bleeding Discharge - Sign-Out/Discharge Documenting (check all that apply): Patient Departure All imaging exams completed and their final reports reviewed: No Studies - Discharge Plan Condition: Stable Disposition: HOME Patient Education Materials: Ovarian Cyst (ED) Referrals: No Primary Care Phys,NOPCP [Primary Care Provider] - Additional Instructions: If you develop a fever, shortness of breath, chest pain, new or worsening symptoms - please call your PCP or go to the ED. Please keep your follow up with OBGYN for later this month for further evaluation of your ovarian cyst and abnormal uterine bleeding - Billing Disposition and Condition Condition: STABLE Disposition: Home
--- NOTE | 2018-10-22 16:32 | UC ---
- Progress Note Progress Note: 10/22/2018 Urine culture: possible contamination NO change Jyotsna Del Valle PA-C Course/Dx - Diagnoses Provider Diagnoses: Hemorrhagic ovarian cyst, Abnormal uterine bleeding Discharge - Sign-Out/Discharge Documenting (check all that apply): Post-Discharge Follow Up All imaging exams completed and their final reports reviewed: No Studies - Discharge Plan Condition: Stable Disposition: HOME Patient Education Materials: Ovarian Cyst (ED) Referrals: No Primary Care Phys,NOPCP [Primary Care Provider] - Additional Instructions: If you develop a fever, shortness of breath, chest pain, new or worsening symptoms - please call your PCP or go to the ED. Please keep your follow up with OBGYN for later this month for further evaluation of your ovarian cyst and abnormal uterine bleeding - Billing Disposition and Condition Condition: STABLE Disposition: Home
== END 2018-10-20 16:10 | disposition home or self-care (01) ==
LOC: UCEAST 14:15
DX: N83.202 Unspecified ovarian cyst, left side (principal); N93.9 Abnormal uterine and vaginal bleeding, unspecified; Z88.2 Allergy status to sulfonamides; Z88.5 Allergy status to narcotic agent; Z87.891 Personal history of nicotine dependence
CPT/HCPCS: 76830; 81003; 87086; 99211; G0463

== ENCOUNTER 2018-10-27 17:33 | Emergency (ER) | payer OTHER ==
[2018-10-27] MEDS ORDERED: HYDROcodone/ACETAMIN 5-325 MG* 1 TAB PO ONE (20:44)
[2018-10-27 20:58] VITALS: BP 124/89
[2018-10-27] MEDS ORDERED: traMADol TAB* 50 MG PO ONE (21:26)
--- NOTE | 2018-10-27 21:30 | UC ---
Abdominal Pain Female HPI - HPI Summary HPI Summary: MS. Mejía started with right adnexal pain suddenly after intercourse today. She was seen here one week or so ago for the same and has been having episodes for the last several weeks. She reports no bleeding at this time. - History of Current Complaint Chief Complaint: UCAbdominalPain Stated Complaint: LOWER ABD PAIN Time Seen by Provider: 10/27/18 18:59 Hx Obtained From: Patient Hx Last Menstrual Period: 10/07/18 ?: No Onset/Duration: Sudden Onset Timing: Constant Severity Initially: Moderate Severity Currently: Moderate Pain Intensity: 7 Location: Discrete At: RLQ Radiates: No Character: Aching, Sharp Aggravating Factor(s): Nothing Alleviating Factor(s): Nothing Associated Signs and Symptoms: Positive: Negative Allergies/Adverse Reactions: Allergies Allergy/AdvReac Type Severity Reaction Status Date / Time sulfamethoxazole Allergy Hives/Diff. Verified 10/27/18 18:41 [From Bactrim] Breathing/I tching trimethoprim [From Bactrim] Allergy Hives/Diff. Verified 10/27/18 18:41 Breathing/I tching oxycodone [From Percocet] AdvReac Intermediate Rash Verified 10/27/18 18:41 Home Medications: Home Medications Riboflavin (Vitamin B2) [Vitamin B-2] 10/27/18 [History] Sleep Med* 10/27/18 [History] PMH/Surg Hx/FS Hx/Imm Hx Previously Healthy: Yes Other History Of: Negative For: Anticoagulant Therapy - Surgical History Surgical History: Yes Surgery Procedure, Year, and Place: , [facility]. 04/09/2012 DILATION AND CURETTAGE - Family History Known Family History: Positive: Cardiac Disease, Other - No malignant hyperthermia, no anesthesia rxn, mood disorder - Social History Alcohol Use: None Substance Use Type: None Smoking Status (MU): Former Smoker Length of Time of Smoking/Using Tobacco: at age 23 Have You Smoked in the Last Year: No - Immunization History Most Recent Influenza Vaccination: last year Most Recent Tetanus Shot: n/a Most Recent Pneumonia Vaccination: n/a Review of Systems All Other Systems Reviewed And Are Negative: Yes Constitutional: Positive: Negative Gastrointestinal: Positive: Abdominal Pain - RLQ Genitourinary: Positive: Abnormal Bleeding - by history but not now. Negative: Dysuria, Hematuria, Frequency, Urgency Is Patient Immunocompromised?: No Physical Exam - Summary Physical Exam Summary: She is non-toxic in appearance with stable vital signs. Triage Information Reviewed: Yes Appearance: Well-Appearing Vital Signs: Initial Vital Signs Temp 99.1 F 10/27/18 18:36 Pulse 75 10/27/18 18:36 Resp 16 10/27/18 18:36 BP 114/79 10/27/18 18:36 Pulse Ox 100 10/27/18 18:36 Vital Signs Reviewed: Yes ENT Exam: Normal Neck exam: Normal Respiratory Exam: Normal Cardiovascular Exam: Normal Abdominal Exam: Other - tender in the RUQ and RLQ. No rebound or guarding Pelvic Exam: Positive: Other - She refused an exam here although I offered to have a female provider perform it. She did allow a female tech to do an U/S which she reported was painful. Abd Pain Female Course/Dx - Course Course Of Treatment: We are limited in what we can do here in the [facility]. U/S is negative and I recommended further evaluation and W/U in the ED. 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 - Differential Dx/Diagnosis Provider Diagnosis: Pelvic pain Discharge - Sign-Out/Discharge Documenting (check all that apply): Patient Departure All imaging exams completed and their final reports reviewed: Yes - Discharge Plan Condition: Stable Disposition: HOME Prescriptions: traMADol TAB* [Ultram*] 50 mg PO Q6HR PRN #10 tab MDD 4 PRN Reason: Pain Patient Education Materials: Pelvic Pain (ED) Referrals: No Primary Care Phys,NOPCP [Primary Care Provider] - Additional Instructions: Try to move up your coconut candy maker appointment for later this month. - Billing Disposition and Condition Condition: STABLE Disposition: Home
== END 2018-10-27 21:40 | disposition home or self-care (01) ==
LOC: UCEAST 17:33
DX: R10.2 Pelvic and perineal pain (principal); R10.811 Right upper quadrant abdominal tenderness; R10.813 Right lower quadrant abdominal tenderness; Z88.5 Allergy status to narcotic agent; Z88.2 Allergy status to sulfonamides; Z87.891 Personal history of nicotine dependence
CPT/HCPCS: 76705; 76830; 81003; 84702; 87086; 99212; A9270-GY; G0463

== ENCOUNTER 2019-02-08 12:00 | Emergency (ER) | payer OTHER ==
[2019-02-08 12:16] VITALS: BP 105/73
--- NOTE | 2019-02-08 13:01 | UC ---
Abdominal Pain Female HPI - HPI Summary HPI Summary: 28 year old woman comes in with a chief complaint of right-sided abdominal pain vaginal bleeding rectal bleeding and syncope. Patient had vaginal bleeding 3 days ago and she syncopized. She had onset of right lower quadrant abdominal pain at that time. No further vaginal bleeding she did have rectal bleeding today. She reports that her stools have overall been fairly normal in color however she had rectal bleeding today. Feeling lightheaded. Feels hot. Pain as a 9-10 out of 10 in her right lower abdomen radiates around her right flank. Patient gets Depo for control. - History of Current Complaint Chief Complaint: UCAbdominalPain Stated Complaint: ABD/RECTAL PAIN Time Seen by Provider: 02/08/19 12:46 Hx Last Menstrual Period: 01/26/19 Pain Intensity: 9 Allergies/Adverse Reactions: Allergies Allergy/AdvReac Type Severity Reaction Status Date / Time sulfamethoxazole Allergy Hives/Diff. Verified 02/08/19 12:17 [From Bactrim] Breathing/I tching trimethoprim [From Bactrim] Allergy Hives/Diff. Verified 02/08/19 12:17 Breathing/I tching oxycodone [From Percocet] AdvReac Intermediate Rash Verified 02/08/19 12:17 Home Medications: Home Medications QUEtiapine TAB* [Seroquel 25 MG TAB*] 25 mg PO DAILY 02/08/19 [History Confirmed 02/08/19] PMH/Surg Hx/FS Hx/Imm Hx Previously Healthy: Yes - Hx Ectopic, Hx Ovarian Cyst Other History Of: Negative For: Anticoagulant Therapy - Surgical History Surgical History: Yes Surgery Procedure, Year, and Place: , [facility]. 04/09/2012 DILATION AND CURETTAGE - Family History Known Family History: Positive: Cardiac Disease, Other - No malignant hyperthermia, no anesthesia rxn, mood disorder - Social History Alcohol Use: None Substance Use Type: None Smoking Status (MU): Former Smoker Length of Time of Smoking/Using Tobacco: at age 23 Have You Smoked in the Last Year: No - Immunization History Most Recent Influenza Vaccination: last year Most Recent Tetanus Shot: n/a Most Recent Pneumonia Vaccination: n/a Review of Systems All Other Systems Reviewed And Are Negative: Yes Constitutional: Positive: Other - SEE HPI Skin: Positive: Negative Eyes: Positive: Negative ENT: Positive: Negative Respiratory: Positive: Negative Cardiovascular: Positive: Negative Gastrointestinal: Positive: Abdominal Pain, Other - SEE HPI Genitourinary: Positive: Other - SEE HPI Motor: Positive: Negative Neurovascular: Positive: Negative Musculoskeletal: Positive: Negative Neurological: Positive: Negative Psychological: Positive: Negative Is Patient Immunocompromised?: No Physical Exam Triage Information Reviewed: Yes Appearance: Well-Nourished, Ill-Appearing - MILD, Pain Distress - MILD Vital Signs: Initial Vital Signs Temp 98.5 F 02/08/19 12:10 Pulse 90 02/08/19 12:10 Resp 15 02/08/19 12:10 BP 105/73 02/08/19 12:10 Pulse Ox 99 02/08/19 12:10 Vital Signs Reviewed: Yes Eye Exam: Normal Eyes: Positive: Conjunctiva Clear Neck: Positive: Supple Respiratory: Positive: Lungs clear, Normal breath sounds, No respiratory distress Cardiovascular: Positive: RRR Abdomen Description: Positive: Other: - Positive right sided heelstrike positive obturator sign. Patient's tender in the right lower quadrant and right upper quadrant and left lower quadrant. She is most tender in the right lower quadrant. Bowel Sounds: Positive: Present Musculoskeletal: Positive: Strength Intact, ROM Intact Neurological: Positive: Alert, Muscle Tone Normal Psychological: Positive: Age Appropriate Behavior Skin Exam: Normal Abd Pain Female Course/Dx - Course Course Of Treatment: With the patient having right lower quadrant abdominal pain syncope vaginal and rectal bleeding I recommended further evaluation in the emergency department. We discussed transport by ambulance versus POV and the patient prefers to go by POV. Vital signs stable in clinic. - Differential Dx/Diagnosis Provider Diagnosis: Abdominal pain, Vaginal bleeding, Rectal bleeding, Syncope Discharge - Sign-Out/Discharge Documenting (check all that apply): Patient Departure All imaging exams completed and their final reports reviewed: No Studies - Discharge Plan Condition: Stable Disposition: HOME-RECOMMEND TO ED Referrals: Charlie Orozco MD [Primary Care Provider] - Additional Instructions: GO DIRECTLY TO THE EMERGENCY DEPARTMENT FOR FURTHER EVALUATION OF YOUR ABDOMINAL PAIN, VAGINAL AND RECTAL BLEEDING AND PASSING OUT. - Billing Disposition and Condition Condition: STABLE Disposition: Home-Recommend to ED
== END 2019-02-08 13:05 | disposition home health service (06) ==
LOC: UCEAST 12:00
DX: R55 Syncope and collapse (principal); N93.9 Abnormal uterine and vaginal bleeding, unspecified; K62.5 Hemorrhage of anus and rectum; R10.31 Right lower quadrant pain; Z87.891 Personal history of nicotine dependence; Z88.5 Allergy status to narcotic agent; Z88.2 Allergy status to sulfonamides
CPT/HCPCS: 99212; G0463

== ENCOUNTER → 2019-02-08 13:47 | Emergency (ER) | payer OTHER ==
[~2019-02-08 13:47] MED LIST changes: -Acetaminophen TAB* 325 MG PO ONE; +Iohexol 300* (CONTRAST) 10 ML SDV IV ONE; +Ketorolac INJ* 30 MG/ML 1 ML VIAL IV PUSH ONE; +NS 0.9% 1000 ML** 1,000 ML IV ONE; +Potassium Chlor TAB* 20 MEQ TAB.ER PO ONE
[2019-02-08 16:39] LABS: ABS Eosinophils 0.1 10^3/ul (0-0.6); ABS Monocytes 0.8 10^3/ul (0-0.8); ABS Neutrophils 5.3 10^3/ul (1.5-7.7); Eosinophil % 0.9 %; Hematocrit 34 % (35-47); Lymphocyte % 13.9 %; Mean Corpuscular HGB Conc 33 g/dL (31-36); Mean Corpuscular Hemoglobin 25 pg (27-31); Mean Corpuscular Volume 78 fL (80-97); Mean Platelet Volume 9.2 fL (7.4-10.4); Platelet Count 172 10^3/uL (150-450); Red Blood Count 4.35 10^6 /uL (3.70-4.87); Red Cell Distribution Width 15 % (10-15); White Blood Count 7.1 10^3/uL (3.5-10.8)
[2019-02-08 17:03] LABS: HCG Pregnancy < 0.60 mIU/mL
[2019-02-08 17:35] LABS: Anion Gap 7 mmol/L (2-11); CO2 Carbon Dioxide 24 mmol/L (22-32); Calcium 8.5 mg/dL (8.6-10.3); Chloride 106 mmol/L (101-111); Potassium 3.2 mmol/L (3.5-5.0); Sodium 137 mmol/L (135-145)
[2019-02-08 17:41] LABS: ALT 12 U/L (7-52); AST 13 U/L (13-39); Albumin/Globulin Ratio 1.5 (1-3); Alkaline Phosphatase 57 U/L (34-104); BUN/Creatinine Ratio 13.8 (8-20); Blood Urea Nitrogen 9 mg/dL (6-24); C Reactive Protein 114.09 mg/L (<8.01); EGFR African American 131.3 (>60); EGFR Non-African American 108.5 (>60); Globulin 2.7 g/dL (2-4); Glucose 108 mg/dL (70-100); Total Protein 6.7 g/dL (6.4-8.9)
--- NOTE | 2019-02-08 19:43 | ED ---
Abdominal Pain/Female - HPI Summary HPI Summary: This pt is a 28 y/o F presenting to [facility] accompanied by her with a CC of abdominal pain described as cramping, worsening since today and rated an 8/ 10 in severity. She stated that the symptoms began on 02/05/19 with vaginal bleeding and abdominal pain. Today she stated that she had rectal bleeding. She stated that she is not due to her BC method and that she typically passes clots during her period. She denies any CP, SOB, fevers, diaphoresis, N/V /D, and headaches. 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 She did not state any aggravating or alleviating factors. She has a pertinent PMHx of ovarian cysts and 3 C-sections. - History of Current Complaint Chief Complaint: EDRyann Stated Complaint: SYNCOPE/RECTAL BLEEDING NEED TRANSFUSION PER CONV Time Seen by Provider: 02/08/19 19:21 Hx Obtained From: Patient Hx Last Menstrual Period: 01/26/19 ?: No - control Onset/Duration: Gradual Onset, Lasting Days - 3, Still Present, Worse Since - today Timing: Constant Severity Initially: Moderate Severity Currently: Severe Pain Intensity: 8 Pain Scale Used: 0-10 Numeric Location: Diffuse Radiates: No Character: Cramping Aggravating Factor(s): Nothing Alleviating Factor(s): Nothing Associated Signs and Symptoms: Positive: Negative - headaches, SOB, Vaginal Bleeding, Other: - POSITIVE: rectal bleeding, 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 Negative: Diaphoresis, Fever, Chest Pain, Nausea, Vomiting, Diarrhea Allergies/Adverse Reactions: Allergies Allergy/AdvReac Type Severity Reaction Status Date / Time sulfamethoxazole Allergy Hives/Diff. Verified 02/08/19 13:57 [From Bactrim] Breathing/I tching trimethoprim [From Bactrim] Allergy Hives/Diff. Verified 02/08/19 13:57 Breathing/I tching oxycodone [From Percocet] AdvReac Intermediate Rash Verified 02/08/19 13:57 PMH/Surg Hx/FS Hx/Imm Hx Previously Healthy: No Endocrine/Hematology History: Reports: Hx Thyroid Disease - HYPOTHYROID, Hx Anemia - HISTORY OF DURING , NO PROBLEMS, TRANSFUSION WITH LAST 3 CHILDREN Denies: Hx Anticoagulant Therapy, Hx Blood Disorders, Hx Diabetes Cardiovascular History: Denies: Hx Hypertension Respiratory History: Reports: Hx Asthma Denies: Hx Chronic Obstructive Pulmonary Disease (COPD) GI History: Denies: Hx Ulcer Musculoskeletal History: Reports: Hx Arthritis - BILATERAL KNEE AND ANKLES, LEFT GREATER THAN RIGHT Sensory History: Reports: Hx Vision Problem - Left medial wall orbital fx on 06/26/2018 - visual change, resolved on 07/01 Denies: Hx Contacts or Glasses Opthamlomology History: Reports: Hx Vision Problem - Left medial wall orbital fx on 06/26/2018 - visual change, resolved on 07/01 Denies: Hx Contacts or Glasses Neurological History: Reports: Hx Headaches, Hx Migraine, Other Neuro Impairments/Disorders - possible concussion on 06/26/2018? Psychiatric History: Reports: Hx Anxiety - NO MEDICATION, Other Psychiatric Issues/Disorders - sleep disorders possibly due to stress Denies: Hx Eating Disorder, Hx of Violent Episodes Against Others - Surgical History Surgery Procedure, Year, and Place: 2010, , CSECTION, [facility] [place]. 04/09/2012 DILATION AND CURETTAGE Hx Anesthesia Reactions: No - NAUSEA AND VOMITING, LOST FEELING IN LEFT ARM, AFTER D&C - Immunization History Date of Tetanus Vaccine: Unknown Infectious Disease History: No Infectious Disease History: Denies: Hx Hepatitis, Hx Human Immunodeficiency Virus (HIV), Traveled Outside the [place] in Last 30 Days - Family History Known Family History: Positive: Cardiac Disease, Other - No malignant hyperthermia, no anesthesia rxn, mood disorder - Social History Alcohol Use: None Hx Substance Use: No Substance Use Type: Reports: None Hx Tobacco Use: Yes Smoking Status (MU): Former Smoker Length of Time of Smoking/Using Tobacco: at age 23 Have You Smoked in the Last Year: No Review of Systems Negative: Fever, Skin Diaphoresis Negative: Chest Pain Negative: Shortness Of Breath Positive: Abdominal Pain - diffuse. Negative: Vomiting, Diarrhea, Nausea Positive: hematuria, other - rectal bleeding Positive: Syncope. Negative: Headache All Other Systems Reviewed And Are Negative: Yes Physical Exam - Summary Physical Exam Summary: VITAL SIGNS: Reviewed. GENERAL: Patient is a well-developed and nourished female who is lying comfortable in the stretcher. Patient is not in any acute respiratory distress. HEAD AND FACE: No signs of trauma. No ecchymosis, hematomas or skull depressions. No sinus tenderness. EYES: PERRLA, EOMI x 2, No injected conjunctiva, no nystagmus. EARS: Hearing grossly intact. Ear canals and tympanic membranes are within normal limits. MOUTH: Oropharynx within normal limits. NECK: Supple, trachea is midline, no adenopathy, no JVD, no carotid bruit, no c- spine tenderness, neck with full ROM CHEST: Symmetric, no tenderness at palpation LUNGS: Clear to auscultation bilaterally. No wheezing or crackles. CVS: Regular rate and rhythm, S1 and S2 present, no murmurs or gallops appreciated. ABDOMEN: Soft, Diffuse tenderness. No signs of distention. No rebound no guarding, and no masses palpated. Bowel sounds are normal. EXTREMITIES: FROM in all major joints, no edema, no cyanosis or clubbing. NEURO: Alert and oriented x 3. No acute neurological deficits. Speech is normal and follows commands. SKIN: Dry and warm Triage Information Reviewed: Yes Vital Signs On Initial Exam: Initial Vitals Temp Pulse Resp BP Pulse Ox 99.2 F 89 14 113/77 99 02/08/19 13:54 02/08/19 13:54 02/08/19 13:54 02/08/19 13:54 02/08/19 13:54 Vital Signs Reviewed: Yes Diagnostics - Vital Signs Vital Signs Temp Pulse Resp BP Pulse Ox 02/08/19 16:23 98.5 F 88 16 109/75 98 02/08/19 13:54 99.2 F 89 14 113/77 99 - Laboratory Lab Results: Lab Results 02/08/19 02/08/19 02/08/19 Range/Units 14:20 16:21 16:21 WBC 7.1 (3.5-10.8) 10^3/uL RBC 4.35 (3.70-4.87) 10^6 /uL Hgb 11.0 L (12.0-16.0) g/dL Hct 34 L (35-47) % MCV 78 L (80-97) fL MCH 25 L (27-31) pg MCHC 33 (31-36) g/dL RDW 15 (10-15) % Plt Count 172 (150-450) 10^3/uL MPV 9.2 (7.4-10.4) fL Neut % (Auto) 74.1 % Lymph % (Auto) 13.9 % [place] % (Auto) 10.8 % Eos % (Auto) 0.9 % Baso % (Auto) 0.3 % Absolute Neuts (auto) 5.3 (1.5-7.7) 10^3/ul Absolute Lymphs (auto) 1.0 (1.0-4.8) 10^3/ul Absolute Monos (auto) 0.8 (0-0.8) 10^3/ul Absolute Eos (auto) 0.1 (0-0.6) 10^3/ul Absolute Basos (auto) 0.0 (0-0.2) 10^3/ul Absolute Nucleated RBC 0.0 10^3/ul Nucleated RBC % 0.0 Sodium 137 (135-145) mmol/L Potassium 3.2 L (3.5-5.0) mmol/L Chloride 106 (101-111) mmol/L Carbon Dioxide 24 (22-32) mmol/L Anion Gap 7 (2-11) mmol/L BUN 9 (6-24) mg/dL Creatinine 0.65 (0.51-0.95) mg/dL Est GFR ( Amer) 131.3 (>60) Est GFR (Non-Af Amer) 108.5 (>60) BUN/Creatinine Ratio 13.8 (8-20) Glucose 108 H (70-100) mg/dL Lactic Acid 1.2 (0.5-2.0) mmol/L Calcium 8.5 L (8.6-10.3) mg/dL Total Bilirubin 0.30 (0.2-1.0) mg/dL AST 13 (13-39) U/L ALT 12 (7-52) U/L Alkaline Phosphatase 57 (34-104) U/L C-Reactive Protein 114.09 H (<8.01) mg/L Total Protein 6.7 (6.4-8.9) g/dL Albumin 4.0 (3.2-5.2) g/dL Globulin 2.7 (2-4) g/dL Albumin/Globulin Ratio 1.5 (1-3) Lipase 11 (11.0-82.0) U/L Beta HCG, Quant < 0.60 mIU/mL Result Diagrams: 02/08/19 16:21 02/08/19 16:21 Lab Statement: Any lab studies that have been ordered have been reviewed, and results considered in the medical decision making process. - CT CT A/P CT Interpretation Completed By: Radiologist Summary of CT Findings: Mild diffuse colonic wall thickening suggestive of colitis. ED physician has reviewed this report. - Ultrasound transvaginal US Ultrasound Interpretation Completed By: Radiologist Summary of Ultrasound Findings: 1. There is trace fluid noted within the endometrium. There is fluid noted. within the scar. There is trace free fluid noted within the pelvic. cul-de-sac and adjacent to the right adnexa. 2. There are simple cysts noted in the right adnexa the largest measuring. approximately 1.6 x 0.9 cm. ED physician has reviewed this report. Abdominal Pain Fem Course/Dx - Course Course Of Treatment: This pt is a 28 y/o F presenting to [facility] with a CC of diffuse abdominal tenderness. She states that she has suffered from vaginal and rectal bleeding along with a syncopal episode today. Her PE found that she had diffuse abdominal tenderness. Her urine test showed abnormalities in blood, nitrate, leukocyte esterase, WBC, RBC, squamous epith cells, and bacteria. She was given Iohexol, Toradol, Potassium Chloride, and sodium chloride during her ED visit. Her transvaginal US showed the followin. There is trace fluid noted within the endometrium. There is fluid noted. within the scar. There is trace free fluid noted within the pelvic cul-de-sac and adjacent to the right adnexa. 2. There are simple cysts noted in the right adnexa the largest measuring approximately 1.[address] A/P shows that she has Mild diffuse colonic wall thickening suggestive of colitis. She will be discharged home with a Dx of a UTI, colitis and metrorrhagia. She david be instructed to follow up with in the morning along with her primary care provider. - Diagnoses Provider Diagnoses: Metrorrhagia, Colitis, UTI (urinary tract infection) Discharge - Sign-Out/Discharge Documenting (check all that apply): Patient Departure - discharge Patient Received Moderate/Deep Sedation with Procedure: No - Discharge Plan Condition: Stable Disposition: HOME Prescriptions: Amoxicillin/Clavulanate TAB* [Augmentin TAB 875*] 875 mg PO BID #14 tab Patient Education Materials: Colitis (ED), Urinary Tract Infection in Women (ED ) Referrals: Charlie Orozco MD [Primary Care Provider] - 2 Days Additional Instructions: Please follow up with genitourinary in the morning by contacting Dr. Olivo, OB /ALGORITHM DESIGN ENGINEER. Also contact your primary care physician in 2-3 days to schedule a follow up appointment. Take all listed medications as directed and return to the emergency dep[artment with any new or worsening symptoms. - Attestation Statements Document Initiated by Scribe: Yes Documenting Scribe: Allen Patel Provider For Whom Scribe is Documenting (Include Credential): Ephraim Rodgers MD Scribe Attestation: IAllen, scribed for Ephraim Rodgers MD on 02/08/19 at 2212. Status of Scribe Document: Ready
[2019-02-08 19:53] LABS: Urine Appearance Cloudy; Urine Bacteria 1+ (Absent); Urine Bilirubin Negative (Negative); Urine Blood 2+ (Negative); Urine Color Amber; Urine Glucose Negative (Negative); Urine Ketones Negative (Negative); Urine Nitrite Positive (Negative); Urine Protein Negative (Negative); Urine Red Blood Cell 2+(6-10/hpf) (Absent); Urine Specific Gravity 1.023 (1.010-1.030); Urine Squamous Epithelial Cell Present (Absent); Urine Urobilinogen Negative (Negative); Urine White Blood Cell 2+(11-20/hpf) (Absent)
[2019-02-08 20:40] LABS: TSH (Thyroid Stimulating Horm) 1.87 mcIU/mL (0.34-5.60)
[2019-02-08 22:28] VITALS: BP 124/79
== END | disposition home or self-care (01) ==
LOC: ED 13:47
DX: N92.1 Excessive and frequent menstruation with irregular cycle (principal); K52.9 Noninfective gastroenteritis and colitis, unspecified; N39.0 Urinary tract infection, site not specified; R31.9 Hematuria, unspecified; N85.8 Other specified noninflammatory disorders of uterus; K62.5 Hemorrhage of anus and rectum; E03.9 Hypothyroidism, unspecified; Z88.5 Allergy status to narcotic agent; Z88.2 Allergy status to sulfonamides; Z87.891 Personal history of nicotine dependence
CPT/HCPCS: 36415; 74177; 76830; 80053; 81003; 81015; 83605; 83690; 84443; 84702; 85025; 86140; 87077; 87086; 87186; 96361; 96374; 99283; A9270-GY; J1885; Q9967

== ENCOUNTER 2019-02-12 16:11 | Emergency (ER) | payer OTHER ==
[2019-02-12] MEDS ORDERED: Ondansetron INJ* 2 MG/ML VIAL IV ONE (18:40)
[2019-02-12] MEDS ORDERED: NS 0.9% 1000 ML** 1,000 ML IV ONE (18:40)
[2019-02-12 19:05] LABS: ABS Eosinophils 0.1 10^3/ul (0-0.6); ABS Lymphocytes 0.8 10^3/ul (1.0-4.8); ABS Monocytes 0.9 10^3/ul (0-0.8); ABS Neutrophils 4.1 10^3/ul (1.5-7.7); Eosinophil % 1.4 %; Hematocrit 35 % (35-47); Hemoglobin 11.7 g/dL (12.0-16.0); Mean Corpuscular HGB Conc 33 g/dL (31-36); Mean Corpuscular Hemoglobin 26 pg (27-31); Mean Corpuscular Volume 78 fL (80-97); Mean Platelet Volume 8.6 fL (7.4-10.4); Platelet Count 234 10^3/uL (150-450); Red Cell Distribution Width 15 % (10-15); White Blood Count 5.8 10^3/uL (3.5-10.8)
--- NOTE | 2019-02-12 19:14 | ED ---
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 The pt mentions that she has right-sided abd pain and describes it as cramping and rates her pain severity a 6/10, generalized pain in abdomen a/w nausea. She is able to eat food but has diarrhea immediately afterwards, and notices blood when wiping after BM. She came to [facility] [place] days ago for similar symptoms and was diagnosed with a UTI. She also reports feeling lightheaded but denies any vaginal bleeding, vaginal discharge, burning when urinating, dysuria, and vomiting. She has hx of peptic ulcer and COPD. - History of Current Complaint Chief Complaint: EDNauseaVomitDiarrh Time Seen by Provider: 02/12/19 18:37 Stated Complaint: CRAMPING, LOWER ABD PAIN PER PT Hx Obtained From: Patient Hx Last Menstrual Period: 01/26/19 Onset/Duration: Started Hours Ago - Current episode, Started Days Ago - five, Still Present Timing: Lasting Days Severity: Moderate Current Severity: Moderate Pain Intensity: 6 Location of Pain: Diffuse Pain Characteristics: Cramping Associated Signs and Symptoms: Positive: Syncope, Nausea, Blood w/Stool, Diarrhea, Lightheadedness - Feeling "faint", Abdominal Pain - right-sided, Other : - NEGATIVE: dysuria. Negative: Vomiting, Dysuria Additional Signs & Symptoms: Negative: Vaginal Bleeding, Vaginal Discharge - Allergy/Home Medications Allergies/Adverse Reactions: Allergies Allergy/AdvReac Type Severity Reaction Status Date / Time sulfamethoxazole Allergy Hives/Diff. Verified 02/08/19 13:57 [From Bactrim] Breathing/I tching trimethoprim [From Bactrim] Allergy Hives/Diff. Verified 02/08/19 13:57 Breathing/I tching oxycodone [From Percocet] AdvReac Intermediate Rash Verified 02/08/19 13:57 PMH/Surg Hx/FS Hx/Imm Hx Endocrine/Hematology History: Reports: Hx Thyroid Disease - HYPOTHYROID, Hx Anemia - HISTORY OF DURING , NO PROBLEMS, TRANSFUSION WITH LAST 3 CHILDREN Denies: Hx Anticoagulant Therapy, Hx Blood Disorders, Hx Diabetes Cardiovascular History: Denies: Hx Hypertension Respiratory History: Reports: Hx Asthma Denies: Hx Chronic Obstructive Pulmonary Disease (COPD) GI History: Denies: Hx Ulcer Musculoskeletal History: Reports: Hx Arthritis - BILATERAL KNEE AND ANKLES, LEFT GREATER THAN RIGHT Sensory History: Reports: Hx Vision Problem - Left medial wall orbital fx on 06/26/2018 - visual change, resolved on 07/01 Denies: Hx Contacts or Glasses Opthamlomology History: Reports: Hx Vision Problem - Left medial wall orbital fx on 06/26/2018 - visual change, resolved on 07/01 Denies: Hx Contacts or Glasses Neurological History: Reports: Hx Headaches, Hx Migraine, Other Neuro Impairments/Disorders - possible concussion on 06/26/2018? Psychiatric History: Reports: Hx Anxiety - NO MEDICATION, Other Psychiatric Issues/Disorders - sleep disorders possibly due to stress Denies: Hx Eating Disorder, Hx of Violent Episodes Against Others - Surgical History Surgical History: Yes Surgery Procedure, Year, and Place: 2010, , [place] [facility] [place] DILATION AND CURETTAGE Hx Anesthesia Reactions: No - NAUSEA AND VOMITING, LOST FEELING IN LEFT ARM, AFTER D&C - Immunization History Date of Tetanus Vaccine: Unknown Infectious Disease History: No Infectious Disease History: Denies: Hx Hepatitis, Hx Human Immunodeficiency Virus (HIV), Traveled Outside the [place] in Last 30 Days - Family History Known Family History: Positive: Cardiac Disease, Other - No malignant hyperthermia, no anesthesia rxn, mood disorder - Social History Alcohol Use: None Hx Substance Use: No Substance Use Type: Reports: None Hx Tobacco Use: Yes Smoking Status (MU): Former Smoker Length of Time of Smoking/Using Tobacco: at age 23 Have You Smoked in the Last Year: No Review of Systems Positive: Abdominal Pain - Cramping sensation on right side, Diarrhea, Nausea, Other - Positive - blood w/stool. Negative: Vomiting Positive: other - Negative - Vaginal bleeding. Negative: burning, dysuria, discharge Neurological: Other - lightheaded Positive: Syncope - one episode All Other Systems Reviewed And Are Negative: Yes Physical Exam - Summary Physical Exam Summary: Constitutional: Well-developed, Well-nourished, Alert. (-) Distressed Skin: Warm, Dry HENT: Normocephalic; Atraumatic Eyes: Conjunctiva normal Neck: Musculoskeletal ROM normal neck. (-) JVD, (-) Stridor, (-) Nuchal rigidity Cardio: Rhythm regular, rate normal, Heart sounds normal; Intact distal pulses; Radial pulses are 2+ and symmetric. (-) Murmur Pulmonary/Chest wall: Effort normal. (-) Respiratory distress, (-) Wheezes, (-) Rales Abd: Soft, mild diffuse abdominal tenderness, (-) Distension, (-) Guarding, (-) Rebound Musculoskeletal: (-) Edema Lymph: (-) Cervical adenopathy Neuro: Alert, Oriented x3 Psych: Mood and affect Normal Triage Information Reviewed: Yes Vital Signs On Initial Exam: Initial Vitals Temp Pulse Resp BP Pulse Ox 98.6 F 99 20 111/74 98 02/12/19 16:12 02/12/19 16:12 02/12/19 16:12 02/12/19 16:12 02/12/19 16:12 Vital Signs Reviewed: Yes Diagnostics - Vital Signs Vital Signs Temp Pulse Resp BP Pulse Ox 02/12/19 18:05 99.2 F 94 18 116/89 96 02/12/19 16:12 98.6 F 99 20 111/74 98 - Laboratory Lab Results: Lab Results 02/12/19 Range/Units 18:52 WBC 5.8 (3.5-10.8) 10^3/uL RBC 4.50 (3.70-4.87) 10^6 /uL Hgb 11.7 L (12.0-16.0) g/dL Hct 35 (35-47) % MCV 78 L (80-97) fL MCH 26 L (27-31) pg MCHC 33 (31-36) g/dL RDW 15 (10-15) % Plt Count 234 (150-450) 10^3/uL MPV 8.6 (7.4-10.4) fL Neut % (Auto) 69.8 % Lymph % (Auto) 14.0 % [place] % (Auto) 14.6 % Eos % (Auto) 1.4 % Baso % (Auto) 0.2 % Absolute Neuts (auto) 4.1 (1.5-7.7) 10^3/ul Absolute Lymphs (auto) 0.8 L (1.0-4.8) 10^3/ul Absolute Monos (auto) 0.9 H (0-0.8) 10^3/ul Absolute Eos (auto) 0.1 (0-0.6) 10^3/ul Absolute Basos (auto) 0.0 (0-0.2) 10^3/ul Absolute Nucleated RBC 0.0 10^3/ul Nucleated RBC % 0.0 Result Diagrams: 02/12/19 18:52 02/12/19 18:52 Lab Statement: Any lab studies that have been ordered have been reviewed, and results considered in the medical decision making process. Re-Evaluation - Re-Evaluation First Eval Re-Evaluation Time: 19:40 Comment: Labs unremarkable, no white count, stable creatinine, will try PO challenge. Second Eval Change: Improved Comment: Patient to be given Zofran prescription on discharge. Patient advised to continue antibiotics as urine culture showed Escherichia coli. GIGU Course/Dx - Course Assessment/Plan: 20-year-old female the recent diagnosis of colitis presents with continued abdominal cramping as well as nausea. -On [address] abdomen and pelvis that showed diffuse colonic wall thickening suggestive of colitis. She also had a transvaginal ultrasound that showed right adnexal cyst. She was sent home on Augmentin. -Vital exam of the well-appearing female no acute distress. Will try IV fluids, Zofran and check CBC and CMP. - Diagnoses Provider Diagnoses: Colitis, Nausea Discharge - Sign-Out/Discharge Documenting (check all that apply): Patient Departure - Discharge Patient Received Moderate/Deep Sedation with Procedure: No - Discharge Plan Condition: Stable Disposition: HOME Prescriptions: Ondansetron ODT TAB* [Zofran 4 MG Odt TAB*] 4 mg PO Q8H PRN 4 Days #12 tab.odt PRN Reason: Nausea/Vomiting Patient Education Materials: Acute Nausea and Vomiting (ED), Colitis (ED) Referrals: Charlie Orozco MD [Primary Care Provider] - 3 Days Additional Instructions: You were seen in the emergency department for diarrhea. Your previous CT scan showed colitis which is inflammation of your intestines. This should resolve on its own. Please finish your dose of antibiotics If any studies were not completed at the time of discharge you will be called with the relevant results. Please follow up with your primary care doctor in next 2-3 days and return to the emergency department for worsening or concerning symptoms. It was a pleasure taking care of you today. - Billing Disposition and Condition Condition: STABLE Disposition: Home - Attestation Statements Document Initiated by Scribe: Yes Documenting Scribe: Sebastian Navarro Provider For Whom Scribe is Documenting (Include Credential): Dr. Magnolia Hernandez Scribe Attestation: I, Sebastian Navarro, scribed for Dr. Magnolia Hernandez on 02/12/19 at 2218. Scribe Documentation Reviewed: Yes Provider Attestation: The documentation as recorded by the scribe, Sebastian Navarro accurately reflects the service I personally performed and the decisions made by me, Dr. Magnolia Hernandez Status of Scribe Document: Viewed
[2019-02-12 19:26] LABS: Albumin 3.4 g/dL (3.2-5.2); Albumin/Globulin Ratio 1.3 (1-3); BUN/Creatinine Ratio 12.1 (8-20); Calcium 8.4 mg/dL (8.6-10.3); EGFR Non-African American 106.6 (>60); Globulin 2.7 g/dL (2-4); Potassium 3.6 mmol/L (3.5-5.0); Total Bilirubin 0.2 mg/dL (0.2-1.0); Total Protein 6.1 g/dL (6.4-8.9)
[2019-02-12] MEDS ORDERED: Ondansetron ODT TAB* 4 MG PO ONE (19:46)
[2019-02-12 20:38] VITALS: BP 105/74
== END 2019-02-12 20:35 | disposition home or self-care (01) ==
LOC: ED 16:11
DX: K52.9 Noninfective gastroenteritis and colitis, unspecified (principal); R11.0 Nausea; R55 Syncope and collapse; R42 Dizziness and giddiness; Z88.5 Allergy status to narcotic agent; Z88.2 Allergy status to sulfonamides; Z87.891 Personal history of nicotine dependence
CPT/HCPCS: 36415; 80053; 85025; 96361; 96374; 99282; A9270-GY; J2405

== ENCOUNTER 2019-02-17 13:07 | Emergency (ER) | payer OTHER ==
[2019-02-17 13:54] LABS: ABS Lymphocytes 0.8 10^3/ul (1.0-4.8); ABS Monocytes 0.5 10^3/ul (0-0.8); ABS Neutrophils 2.3 10^3/ul (1.5-7.7); Eosinophil % 0.6 %; Hematocrit 33 % (35-47); Hemoglobin 11.1 g/dL (12.0-16.0); Lymphocyte % 22.3 %; Mean Corpuscular HGB Conc 33 g/dL (31-36); Mean Corpuscular Hemoglobin 25 pg (27-31); Mean Corpuscular Volume 76 fL (80-97); Mean Platelet Volume 7.4 fL (7.4-10.4); Nucleated Red Blood Cells % 0.1; Platelet Count 275 10^3/uL (150-450); Red Blood Count 4.41 10^6 /uL (3.70-4.87); Red Cell Distribution Width 15 % (10-15); White Blood Count 3.6 10^3/uL (3.5-10.8)
[2019-02-17] MEDS ORDERED: NS 0.9% 1000 ML** 1,000 ML IV ONE (13:56)
--- NOTE | 2019-02-17 13:58 | ED ---
Abdominal Pain/Female - HPI Summary HPI Summary: The patient is a 28 y/o F arriving by ambulance to [facility] with a chief complaint of N/V/D and suprapubic abd pain over starting two weeks ago but worsening in the last few days. She reports that the diarrhea and abd pain has been present for two weeks, but now she has began to have nausea and diarrhea. Her symptoms have continued to change throughout the course with multiple ED visits, but she is now complaining of dark stool with a coffee ground appearance and vomiting, with an episode of hematemesis. When she has a BM, the abd pain is at its worse. She additionally c/o diaphoresis, chills, abd bloating, dizziness, and decreased PO intake. She denies any fever, erythema of eyes, sore throat, CP, SOB, cough, dysuria, hematuria, myalgia, edema, or rash. She states that she attempted to follow up with her PCP, but he told her to come here. Recent dx of colitis without treatment. States that her cat at home has tape worms, and she is concerned for possible parasite infection. LNMP: 01/26/19. PMHx: Hashimotos , thyroid disease, anemia, bipolar disorder, sections, D&C. FHx of Crohn's disease in mother. Former smoker, no EtOH, no substance use. - History of Current Complaint Chief Complaint: EDAbdPain Stated Complaint: STOMACH PAIN, VOMITING BLOOD YESTERDAY PER EMS Time Seen by Provider: 02/17/19 13:25 Hx Obtained From: Patient Hx Last Menstrual Period: 01/26/19 ?: No Onset/Duration: Lasting Weeks, Still Present, Worse Since - last few days Timing: Days Severity Initially: Mild Severity Currently: Moderate Pain Intensity: 0 Pain Scale Used: 0-10 Numeric Location: Suprapubic Radiates: No Character: Other: - bloating Aggravating Factor(s): Other: - abd pain with BMs Alleviating Factor(s): Nothing Associated Signs and Symptoms: Positive: Diaphoresis, Decreased Appetite, Nausea , Vomiting - one episode of hematemesis, Diarrhea - dark stool with coffee ground appearance, Other: - POSITIVE: chills; NEGATIVE: erythema of eyes, sore throat, SOB, dysuria, hematuria, myalgia, edema, rash. Negative: Fever, Cough, Chest Pain, Dizzy Allergies/Adverse Reactions: Allergies Allergy/AdvReac Type Severity Reaction Status Date / Time sulfamethoxazole Allergy Hives/Diff. Verified 02/17/19 13:35 [From Bactrim] Breathing/I tching trimethoprim [From Bactrim] Allergy Hives/Diff. Verified 02/17/19 13:35 Breathing/I tching oxycodone [From Percocet] AdvReac Intermediate Rash Verified 02/17/19 13:35 PMH/Surg Hx/FS Hx/Imm Hx Endocrine/Hematology History: Reports: Hx Thyroid Disease - HYPOTHYROID, Hx Anemia - HISTORY OF DURING , NO PROBLEMS, TRANSFUSION WITH LAST 3 CHILDREN Denies: Hx Anticoagulant Therapy, Hx Blood Disorders, Hx Diabetes Cardiovascular History: Denies: Hx Hypertension Respiratory History: Reports: Hx Asthma Denies: Hx Chronic Obstructive Pulmonary Disease (COPD) GI History: Reports: Other GI Disorders - colitis Denies: Hx Ulcer Musculoskeletal History: Reports: Hx Arthritis - BILATERAL KNEE AND ANKLES, LEFT GREATER THAN RIGHT Sensory History: Reports: Hx Vision Problem - Left medial wall orbital fx on 06/26/2018 - visual change, resolved on 07/01 Denies: Hx Contacts or Glasses Opthamlomology History: Reports: Hx Vision Problem - Left medial wall orbital fx on 06/26/2018 - visual change, resolved on 07/01 Denies: Hx Contacts or Glasses Neurological History: Reports: Hx Headaches, Hx Migraine, Other Neuro Impairments/Disorders - possible concussion on 06/26/2018? Psychiatric History: Reports: Hx Anxiety - NO MEDICATION, Hx Bipolar Disorder, Other Psychiatric Issues/Disorders - sleep disorders possibly due to stress Denies: Hx Eating Disorder, Hx of Violent Episodes Against Others - Surgical History Surgical History: Yes Surgery Procedure, Year, and Place: 2010, , [facility] [place]. 04/09/2012 DILATION AND CURETTAGE Hx Anesthesia Reactions: No - NAUSEA AND VOMITING, LOST FEELING IN LEFT ARM, AFTER D&C - Immunization History Date of Tetanus Vaccine: Unknown Infectious Disease History: No Infectious Disease History: Denies: Hx Hepatitis, Hx Human Immunodeficiency Virus (HIV), Traveled Outside the [place] in Last 30 Days - Family History Known Family History: Positive: Cardiac Disease, Other - Crohn's, No malignant hyperthermia, no anesthesia rxn, mood disorder - Social History Alcohol Use: None Hx Substance Use: No Substance Use Type: Reports: None Hx Tobacco Use: Yes Smoking Status (MU): Former Smoker Length of Time of Smoking/Using Tobacco: at age 23 Have You Smoked in the Last Year: No Review of Systems Positive: Chills, Skin Diaphoresis. Negative: Fever Negative: Erythema Negative: Sore Throat Negative: Chest Pain Negative: Shortness Of Breath, Cough Positive: Abdominal Pain - suprapubic, bloating, Vomiting - episode of hematemesis, Nausea, Other - dark stool with coffee grounds, decreased PO intake Negative: dysuria, hematuria Negative: Myalgia, Edema Negative: Rash Neurological: Other - dizziness All Other Systems Reviewed And Are Negative: Yes Physical Exam - Summary Physical Exam Summary: Constitutional: Well-developed, Well-nourished, Alert. (-) Distressed Skin: Warm, Dry HENT: Normocephalic; Atraumatic Eyes: Conjunctiva normal Neck: Musculoskeletal ROM normal neck. (-) JVD, (-) Stridor, (-) Tracheal deviation Cardio: Rhythm regular, rate normal, Heart sounds normal; Intact distal pulses; The pedal pulses are 2+ and symmetric. Radial pulses are 2+ and symmetric. (-) Murmur Pulmonary/Chest wall: Effort normal. (-) Respiratory distress, (-) Wheezes, (-) Rales Abd: Soft, (-) tenderness, (+) Distension, (-) Guarding, (-) Rebound Musculoskeletal: (-) Edema Lymph: (-) Cervical adenopathy Neuro: Alert, Oriented x3 Psych: Mood and affect Normal Triage Information Reviewed: Yes Vital Signs On Initial Exam: Initial Vitals Temp Pulse Resp BP Pulse Ox 98.2 F 86 16 117/77 96 02/17/19 13:27 02/17/19 13:27 02/17/19 13:27 02/17/19 13:27 02/17/19 13:27 Vital Signs Reviewed: Yes Diagnostics - Vital Signs Vital Signs Temp Pulse Resp BP Pulse Ox 02/17/19 13:27 98.2 F 86 16 117/77 96 - Laboratory Result Diagrams: 02/17/19 13:46 02/17/19 13:46 Lab Statement: Any lab studies that have been ordered have been reviewed, and results considered in the medical decision making process. Re-Evaluation - Re-Evaluation First Eval Re-Evaluation Time: 15:30 Comment: I discussed today's results with the patient, and she agrees with discharge plan. Abdominal Pain Fem Course/Dx - Course Course Of Treatment: Patient is a 28 y/o F arriving by ambulance with cc of N/V/ D and suprapubic abd pain worsening over the last few days with dark stool with a coffee ground appearance, hematemesis, abd bloating, diaphoresis, chills, dizziness, and PO intake. Denies fevers, dysuria, and hematuria. Recent dx of colitis. FHx of Crohns disease. Upon physical exam, the patient exhibits a distended abdomen. Blood work within normal limits but reveals Hgb of 11.1, Hct of 33, MCV of 76, MCH of 25, absolute lymphs of 0.8, potassium of 3.3, calcium of of 7.8, CRP of 18.33, total protein of 5.5, and albumin of 3.0. UA is negative for infection. Microbiology is positive for C. diff, pending shiga toxin. Pending serology parasite exam. Patient is diagnosed with C. diff colitis. She developed a headache in the ED was given Tylenol. She was also administered Ns, Zofran, and Vancoymcin in the ED. She is instructed to isolate herself as she is highly contagious; she also needs to practice good hand washing skills and is off work until cleared by her PCP. She agrees with plan. - Diagnoses Provider Diagnoses: C. difficile colitis Discharge - Sign-Out/Discharge Documenting (check all that apply): Patient Departure - Patient will be discharged home. Patient Received Moderate/Deep Sedation with Procedure: No - Discharge Plan Condition: Stable Disposition: HOME Prescriptions: Vancomycin CAP* 250 mg PO Q6H #42 cap Patient Education Materials: C Diff (Clostridium Difficile) Infection (ED) Forms: *Work Release Referrals: Charlie Orozco MD [Primary Care Provider] - 3 Days Additional Instructions: Please take medications as prescribed. Follow up with your primary care provider in 2-3 days. Isolate yourself until you can be seen by your provider. Keep good hand washing practices. You are highly contagious. RETURN TO THE EMERGENCY DEPARTMENT FOR ANY NEW OR WORSENING SYMPTOMS. - Billing Disposition and Condition Condition: STABLE Disposition: Home - Attestation Statements Document Initiated by Scribe: Yes Documenting Scribe: Agnieszka Alcaraz Provider For Whom Scribe is Documenting (Include Credential): Dr. Aron Anderson MD Scribe Attestation: I, Agnieszka Alcaraz, scribed for Dr. Aron Anderson MD on 02/17/19 at 1536. Status of Scribe Document: Ready
[2019-02-17 14:25] LABS: Albumin/Globulin Ratio 1.2 (1-3); C Reactive Protein 18.33 mg/L (<8.01); Calcium 7.8 mg/dL (8.6-10.3); EGFR African American 141.3 (>60); EGFR Non-African American 116.8 (>60); Globulin 2.5 g/dL (2-4); Potassium 3.3 mmol/L (3.5-5.0); Total Bilirubin 0.2 mg/dL (0.2-1.0); Total Protein 5.5 g/dL (6.4-8.9)
[2019-02-17 14:41] LABS: Urine Appearance Cloudy; Urine Bilirubin Negative (Negative); Urine Blood Negative (Negative); Urine Color Yellow; Urine Glucose Negative (Negative); Urine Ketones Negative (Negative); Urine Nitrite Negative (Negative); Urine Protein Negative (Negative); Urine Specific Gravity 1.019 (1.010-1.030); Urine Urobilinogen Negative (Negative)
[2019-02-17] MEDS ORDERED: Ondansetron ODT TAB* 4 MG SL ONE (14:45)
[2019-02-17] MEDS ORDERED: Acetaminophen TAB* 325 MG PO ONE (14:55)
[2019-02-17] MEDS ORDERED: Vancomycin CAP* 125 MG CAP PO ONE (15:29)
[2019-02-17 15:56] VITALS: BP 125/74
== END 2019-02-17 15:54 | disposition home or self-care (01) ==
LOC: ED 13:07
DX: A04.72 Enterocolitis due to Clostridium difficile, not specified as recurrent (principal); Z88.1 Allergy status to other antibiotic agents; Z88.5 Allergy status to narcotic agent; Z88.2 Allergy status to sulfonamides; E03.9 Hypothyroidism, unspecified; J45.909 Unspecified asthma, uncomplicated; Z87.891 Personal history of nicotine dependence
CPT/HCPCS: 36415; 80053; 81003; 83605; 83690; 85025; 86140; 87045; 87046; 87077; 87177; 87209; 87328; 87329; 87493; 87899; 96360; 96361; 99283; A9270-GY

== ENCOUNTER 2019-05-24 10:43 | Emergency (ER) | payer OTHER ==
--- OUTSIDE RECORDS SUMMARY | 2019-05-24 10:50 | XMS REPORT | Continuity of Care Document ---
:1990 Author Organization [facility] Address [address] [place] [address] Phone Care Team Providers Name Role Phone Pratima Rosado NP Unavailable Unavailable Allergies, Adverse Reactions, Alerts Substance Reaction Status OXYCODONE HCL Active acetaminophen Active trimethoprim Active sulfamethoxazole Active Medications Medication Instructions Dosage Effective Dates Status Comments (start - stop) take 1 tablet by 1.00 tablet - Active (28) 1.5 mg-30 mcg oral route every (21)/75 mg (7) day tablet SYNTHROID (unknown Not Available - Active strength) Problems Condition Effective Dates (start - Clinical Status Comments stop) Encounter for ot general cnsl - and advice on contraception Encounter for initial prescription of contraceptive pills Other ovarian cyst, left side Procedures Procedure Date No information Results Test Name Date and Time Measure Units Reference Range Abnormal Flag Status Comments No information Advance Directives Directive Yes / No Effective Date File Name No information Encounters Encounter Practice Location Reason(s) Diagnoses Date Provider Providers Description For Visit Copied on Encounter [facility] [place] [address] [facility] [address] [place], [address] [facility], [place], [place], [address], [id number], [place]. [place] tel:[phone] [facility] Encounter for ot Sep-1 [facility] Referring [facility] and [address]. Provider: [facility] advice on [address]Encoun [place], [address] [place] prescription of [place], , [address], [place], [place], [place], pillsOther ovarian [address], [place], [address]. [id number], cyst, left side [place]. [place] tel:[phone] Family History Family Member Diagnosis Age At Onset 1st degree relative No hx of venous thromboembolism 1st degree relative No hx of coronary heart disease (female <65, male <55) Mother Cancer, ovarian 35 Immunizations Vaccine Date Status Comments No information Payers Payer name Insurance type Covered republican ID Authorization(s) Vishnu KEENE [facility] CI [id number] Social History Type Description Quantity Date Captured Comments Alcohol Use Details Unknown Caffeine Use Details Unknown Tobacco Use Status Unknown Smoking Status Never smoker Sex Female Vital Signs Date / Height Weight BMI Pulse Blood Temperature Respiratory Body Head BMI Pulse Inhaled Time: Rate Pressure Rate Surface Circumference percentile Ox Ox Area No information Chief Complaint And Reason For Visit No information Reason For Referral Reason For Referral No information Plan Of Treatment Date Type Action Status No information History Of Present Illness Encounter Date Complaint History Of Present Illness No information Functional Status Date Functional Assessment No information Medications Administered Medication Instructions Dosage Effective Dates (start - stop) Status Comments No information Instructions Date Instruction Additional Information No information Assessments Type Assessment Date No information Goals Health Concern Goal Type Priority Status Date No information Medical Equipment Description Device [place] Device Identifier Effective Dates (start - stop ) Status No information Mental Status Date Cognitive Assessment No information Health Concerns Observation Date No information Concern Status Date No information
--- OUTSIDE RECORDS SUMMARY | 2019-05-24 10:50 | XMS REPORT | Continuity of Care Document ---
:1990 Author Organization [facility] Address [address] [place] [address] Phone Care Team Providers Name Role Phone Pratima Rosado NP Unavailable Unavailable Allergies, Adverse Reactions, Alerts Substance Reaction Status OXYCODONE HCL Active acetaminophen Active trimethoprim Active sulfamethoxazole Active Medications Medication Instructions Dosage Effective Dates Status Comments (start - stop) .12/15 take 1 tablet by 1.00 tablet - Active (28) 1.5 mg-30 mcg oral route every (21)/75 mg (7) day tablet SYNTHROID (unknown Not Available - Active strength) Problems Condition Effective Dates (start - Clinical Status Comments stop) Encounter for oth general cnsl - and advice on contraception Encounter for initial prescription of contraceptive pills Other ovarian cyst, left side Procedures Procedure Date OFFICE/OUTPATIENT VISIT, NEW BLOOD PRESSURE Height/Weight OTHER Medical Services Contraceptive Oven Operator.Svc. Other Oven Operator.Svc. STI Results Test Name Date and Time Measure Units Reference Range Abnormal Flag Status Comments No information Advance Directives Directive Yes / No Effective Date File Name No information Encounters Encounter Practice Location Reason(s) Diagnoses Date Provider Providers Description For Visit Copied on Encounter OFFICE/OUTPA [facility] Encounter for ot Sep- White Referring TIENT VISIT, [facility] [place] Control general cnsl and Pratima. Provider: [facility] Consult advice on [address] (chief contraceptionEncoun [place], [address], [address]) ter for initial [address], [address] [place] [place] prescription of [place], St, [place], [place], [place], [place], pills[place] [address], [place], [address]. [id number], cyst, left side [place]. [place] tel:[phone] Family History Family Member Diagnosis Age At Onset 1st degree relative No hx of venous thromboembolism 1st degree relative No hx of coronary heart disease (female <65, male <55) Mother Cancer, ovarian 35 Immunizations Vaccine Date Status Comments No information Payers Payer name Insurance type Covered alliance party ID Authorization(s) Vishnu KEENE [facility] CI [id number] Social History Type Description Quantity Date Captured Comments Alcohol Use Details Unknown Caffeine Use Details Unknown Tobacco Use Status Current non-smoker Smoking Status Never smoker Non-Smoking Tobacco : No Details Available : No Details Available 2018 Use Details Sex Female Vital Signs Date / Height Weight BMI Pulse Blood Temperature Respiratory Body Head BMI Pulse Inhaled Time: Rate Pressure Rate Surface Circumference percentile Ox Ox Area 61.00 122.40 23.1 128/2019 in lbs 3 mm[Hg] 12:45 kg/m PM eter (2) Chief Complaint And Reason For Visit Most recent encounter only, dated '04/05/2019 12:40'. Control Consult (chief complaint). Description: Patient presents today to start control.She had a in the last year with a tubal ligation. Pt believes she miscarried a even after the tubal. "My EVENT CREW TECHNICIAN told me I should use control again". She doesn't want to have the tubal done again. Menses just ended. No IC since. Pt somewhat of a poor historian. She states she goes to the ER almost every month for ovarian cysts. & amp;#34;They are so bad I can't walk". Does have mittle smertz. Reviewed [facility]IO and she has had several TV LIN done in the last six months. They have been unremarkable. Once back in October there was a cyst that was less than 1cm. Scant fluid in the cul de sac. She is hoping that control will help with her symptoms. Would like regular cycles and less painful periods. PW Reason For Referral Reason For Referral No information Plan Of Treatment Date Type Action Status No information History Of Present Illness Encounter Date Complaint History Of Present Illness Control Consult Patient presents today to start control. She had a in the last year with a tubal ligation. Pt believes she miscarried a even after the tubal. "My EVENT CREW TECHNICIAN told me I should use control again". She doesn't want to have the tubal done again. Menses just ended. No IC since. Pt somewhat of a poor historian. She states she goes to the ER almost every month for ovarian cysts. "They are so bad I can't walk". Does have mittle smertz. Reviewed RHIO and she has had several TV LIN done in the last six months. They have been unremarkable. Once back in October there was a cyst that was less than 1cm. Scant fluid in the cul de sac. She is hoping that control will help with her symptoms. Would like regular cycles and less painful periods. PW Functional Status Date Functional Assessment No information Medications Administered Medication Instructions Dosage Effective Dates (start - stop) Status Comments No information Instructions Date Instruction Additional Information No information Assessments Type Assessment Date assessment Encounter for oth general cnsl and advice on contraception 2018 assessment Encounter for initial prescription of contraceptive pills 2018 assessment Other ovarian cyst, left side Goals Health Concern Goal Type Priority Status Date No information Medical Equipment Description Device [place] Device Identifier Effective Dates (start - stop ) Status No information Mental Status Date Cognitive Assessment Normal Orientation Health Concerns Observation Date No information Concern Status Date No information
--- OUTSIDE RECORDS SUMMARY | 2019-05-24 10:50 | XMS REPORT | Continuity of Care Document ---
:1990 Author Organization [facility] Address [address] [place] [address] Phone Care Team Providers Name Role Phone [...] on Encounter [facility] [place] 3 [address]atima. [facility] [address] [place], [address] [facility], [place], [address], [id number], [place]. [place] tel:[phone] [facility] Encounter for ot Sep- [facility] Referring [facility] and Pratima. Provider: [facility] advice on [address] contraceptionEncoun [place], [address] prescription of [place], , [place], [place], [place], pills[place] [address], [place], [address]. [id number], cyst, left side [place]. [place] tel:[phone] Family History Family Member Diagnosis Age At Onset 1st degree relative No hx of venous thromboembolism 1st degree relative No hx of coronary heart disease (female <65, male <55) Mother Cancer, ovarian 35 Immunizations Vaccine Date Status Comments No information Payers Payer name Insurance type Covered green party ID Authorization(s) Vishnu KEENE [facility] CI [id number] Social History Type Description Quantity Date Captured [...] Date No information Medical Equipment Description Device [place] Device Identifier Effective Dates (start - stop ) Status No information Mental Status Date Cognitive Assessment No information Health Concerns Observation Date No information Concern Status Date No information
[2019-05-24 11:01] VITALS: BP 115/85
--- NOTE | 2019-05-24 12:24 | UC ---
Complaint Female HPI - HPI Summary HPI Summary: PATIENT REPORTS ONSET OF VAGINAL BLEEDING THIS MORNING. PASSING BLOOD CLOTS THE SIZE OF $0.50 COINS. IS COMPLAINING OF LOWER ABDOMINAL CRAMPING AND TEARING SENSATION. NO FEVER. STATES SHE TAKES HER OCP RELIABLY BUT HAS NOT HAD HER PERIOD SINCE 03/29/19. HOME TEST 4 DAYS AGO NEGATIVE. CALLED HER OB WHO ADVISED SHE BE SEEN IN THE URGENT CARE. PATIENT HAS HAD 6 FULL-TERM DELIVERIES ( X 2, CS X 3, X 1)AND AN ECTOPIC IN 2013. BTI 2015. REPORTS A SPONTANEOUS MISCARRIAGE IN 2018 BUT DID NOT SEEK MEDICAL ATTENTION FOR THIS. - History Of Current Complaint Chief Complaint: UCGU Stated Complaint: VAGINAL BLEEDING, AND ABDOMINAL PAIN Time Seen by Provider: 05/24/19 11:10 Hx Obtained From: Patient Hx Last Menstrual Period: 03/28/19 Onset/Duration: Sudden Onset, Lasting Hours, Still Present Severity Initially: Moderate Severity Currently: Moderate Pain Intensity: 7 Pain Scale Used: 0-10 Numeric Character: Cramping, Tearing Aggravating Factor(s): Nothing Alleviating Factor(s): Nothing Associated Signs And Symptoms: Positive: Vaginal Bleeding/Discharge. Negative: Nausea - Allergies/Home Medications Allergies/Adverse Reactions: Allergies Allergy/AdvReac Type Severity Reaction Status Date / Time sulfamethoxazole Allergy Hives/Diff. Verified 05/24/19 10:52 [From Bactrim] Breathing/I tching trimethoprim [From Bactrim] Allergy Hives/Diff. Verified 05/24/19 10:52 Breathing/I tching oxycodone [From Percocet] AdvReac Intermediate Rash Verified 05/24/19 10:52 PMH/Surg Hx/FS Hx/Imm Hx Endocrine History: Hypothyroidism Other History Of: Negative For: Anticoagulant Therapy - Surgical History Surgical History: Yes Surgery Procedure, Year, and Place: 2010, , CSECTION, [facility] [place]. 04/09/2012 DILATION AND CURETTAGE - Family History Known Family History: Positive: Cardiac Disease, Other - Crohn's, No malignant hyperthermia, no anesthesia rxn, mood disorder - Social History Alcohol Use: None Substance Use Type: None Smoking Status (MU): Former Smoker Length of Time of Smoking/Using Tobacco: at age 23 Have You Smoked in the Last Year: No - Immunization History Most Recent Influenza Vaccination: last year Most Recent Tetanus Shot: n/a Most Recent Pneumonia Vaccination: n/a Review of Systems All Other Systems Reviewed And Are Negative: Yes Constitutional: Positive: Negative Skin: Positive: Negative Respiratory: Positive: Negative Cardiovascular: Positive: Negative Gastrointestinal: Positive: Abdominal Pain Genitourinary: Positive: Abnormal Bleeding. Negative: Dysuria Physical Exam Triage Information Reviewed: Yes Appearance: Well-Appearing, No Pain Distress, Well-Nourished Vital Signs: Initial Vital Signs Temp 97.9 F 05/24/19 10:53 Pulse 79 05/24/19 10:53 Resp 18 05/24/19 10:53 BP 115/85 05/24/19 10:53 Pulse Ox 98 05/24/19 10:53 Laboratory Tests 05/24/19 05/24/19 11:13 11:15 POC Urine Color Yellow POC Urine Clarity Clear POC Urine pH 6.5 POC Ur Specif [place] 1.025 POC Urine Protein Negative POC Ur Glucose (UA) Negative POC Urine Ketones Negative POC Urine Blood 3+ A POC Urine Nitrite Negative POC Urine Bilirubin Negative POC Urine Urobilinogen 1.0 POC U Leukocyte Esteras Negative POC Ur Test Negative Vital Signs Reviewed: Yes Eyes: Positive: Conjunctiva Clear ENT: Positive: Hearing grossly normal Neck: Positive: Supple Respiratory Exam: Normal Cardiovascular Exam: Normal Abdomen Description: Positive: Soft, Other:. Negative: CVA Tenderness (R), CVA Tenderness (L), Distended, Guarding Bowel Sounds: Positive: Present Musculoskeletal: Positive: No Edema Neurological: Positive: Alert Psychological: Positive: Age Appropriate Behavior Skin: Negative: Rashes Diagnostics - Radiology TRANSVAGINAL US Radiology Interpretation Completed By: Radiologist Summary of Radiographic Findings: NEGATIVE EXAM Complaint Female Dx - Course Course Of Treatment: URINE HCG NEGATIVE. URINE DIP POSITIVE ONLY FOR BLOOD WHICH IS LIKELY FROM HER VAGINAL BLEEDING. TRANSVAGINAL ULTRASOUND UNREMARKABLE. PATIENT IS LIKELY EXPERIENCING AN UNUSUAL MENSTRUAL CYCLE SECONDARY TO MISSING HER CYCLE LAST MONTH. ADVISED TO CONTINUE HER OCPS PRESCRIBED. FOLLOW-UP WITH FORESTRY AID TECHNICIAN IF HER SYMPTOMS PERSIST. SERUM HCG DRAWN TO ENSURE IT IS ZERO. - Differential Dx/Diagnosis Provider Diagnosis: DUB (dysfunctional uterine bleeding) Discharge ED - Sign-Out/Discharge Documenting (check all that apply): Patient Departure All imaging exams completed and their final reports reviewed: Yes - Discharge Plan Condition: Stable Disposition: HOME Patient Education Materials: Dysfunctional Uterine Bleeding (ED) Referrals: Charlie Orozco MD [Primary Care Provider] - If Needed Additional Instructions: ULTRASOUND TODAY UNREMARKABLE. URINE TEST NEGATIVE. GIVEN YOUR HISTORY OF ECTOPIC HAVE DRAWN SERUM HCG TO ENSURE IT IS 0. FOLLOW-UP WITH YOUR FORESTRY AID TECHNICIAN IF YOUR SYMPTOMS PERSIST. GO TO THE ER WITHOUT FAIL IF YOU DEVELOP WORSENING PAIN, FEVER, SHORTNESS OF BREATH, CHEST PAIN, RAPID HEARTBEAT OR ANY OTHER CONCERNING SYMPTOMS. - Billing Disposition and Condition Condition: STABLE Disposition: Home
== END 2019-05-24 12:45 | disposition home or self-care (01) ==
LOC: UCEAST 10:43
DX: N93.8 Other specified abnormal uterine and vaginal bleeding (principal); Z88.2 Allergy status to sulfonamides; Z88.1 Allergy status to other antibiotic agents; Z88.5 Allergy status to narcotic agent; Z87.891 Personal history of nicotine dependence
CPT/HCPCS: 36415; 76830; 81003; 84702; 99211; G0463

== ENCOUNTER 2019-06-10 02:07 | Emergency (ER) | payer OTHER ==
[2019-06-10 02:43] LABS: ABS Eosinophils 0.1 10^3/ul (0-0.6); ABS Lymphocytes 1.7 10^3/ul (1.0-4.8); ABS Monocytes 0.4 10^3/ul (0-0.8); ABS Neutrophils 1.9 10^3/ul (1.5-7.7); Eosinophil % 1.5 %; Hematocrit 33 % (35-47); Hemoglobin 10.9 g/dL (12.0-16.0); Lymphocyte % 41.1 %; Mean Corpuscular HGB Conc 33 g/dL (31-36); Mean Corpuscular Hemoglobin 25 pg (27-31); Mean Corpuscular Volume 77 fL (80-97); Mean Platelet Volume 8.8 fL (7.4-10.4); Platelet Count 184 10^3/uL (150-450); Red Blood Count 4.31 10^6 /uL (3.70-4.87); Red Cell Distribution Width 15 % (10-15); White Blood Count 4.2 10^3/uL (3.5-10.8)
[2019-06-10 02:48] LABS: INR 0.97 (0.82-1.09)
[2019-06-10 02:53] LABS: Albumin 4.1 g/dL (3.2-5.2); Calcium 9.2 mg/dL (8.6-10.3); Potassium 3.4 mmol/L (3.5-5.0); Total Bilirubin 0.3 mg/dL (0.2-1.0)
[2019-06-10 02:59] LABS: Albumin/Globulin Ratio 1.4 (1-3); BUN/Creatinine Ratio 22.5 (8-20); EGFR African American 118.6 (>60); Globulin 2.9 g/dL (2-4)
--- OUTSIDE RECORDS SUMMARY | 2019-06-10 03:12 | XMS REPORT | Continuity of Care Document ---
:1990 External Reference #:[id number] Author Name Blas Gayle N.P. Address [address] [place] [address] [address] [place] [address] Problems Description No Information Available Social History Type Date Description Comments Sex Unknown ETOH Use Occasionally consumes alcohol Tobacco Use Start: Unknown End: Patient is a former smoker Unknown Recreational Drug Use Denies Drug Use Allergies, Adverse Reactions, Alerts Active Allergies Reaction Severity Comments Date Percocet 08/25/2018 Bactrim 08/25/2018 Medications Active Medications SIG Qnty Indications Ordering Date Provider Effexor XR 1 by mouth every 90caps F31.81 Charlie Orozco, 06/07/2019 75mg Caps ER day M.D. 24HR Senna-S 2 tab by mouth 120tabs Charlie Orozco, 02/24/2019 8.6-50mg Tablets twice a day M.D. every evening Seroquel 1 tab by mouth 90tabs F31.81 Charlie Orozco., 01/09/2019 25mg Tablets at night M.D. Ondansetron HCL take one tablet 60tabs F07.81 Charlie Orozco, 10/07/2018 4mg by mouth every 4 M.D. Tablets hours as needed (maximum daily dose =6) Levothyroxine Sodium take 1 tablet by 30tabs E03.9 Charlie Orozco, 2018 mouth once daily M.D. 125mcg Tablets in the morning Ibuprofen take one tablet 90tabs G43.119 Charlie Orozco, 09/02/2018 600mg Tablets by mouth three M.D. times daily with food prn Migraine Aura Metronidazole Unknown 500mg Tablets Metronidazole Unknown 500mg Tablets History Medications Effexor XR 1 by mouth every 30caps F31.81 Charlie OrozcoJabier, 01/09/2019 - 37.5mg day M.D. 06/07/2019 Caps ER 24HR Immunizations Description No Information Available Vital Signs Date Vital Result Comment 06/07/2019 10:52am BP Systolic 120 mmHg BP Diastolic 68 mmHg Height 61 inches 5'1" Weight 117.00 lb BMI (Body Mass Index) 22.1 kg/m2 Heart Rate 73 /min Respiratory Rate 16 /min 02/24/2019 9:30am BP Systolic 110 mmHg BP Diastolic 64 mmHg Height 61 inches 5'1" Weight 126.00 lb BMI (Body Mass Index) 23.8 kg/m2 Heart Rate 83 /min Respiratory Rate 18 /min Results Test Acquired Date Facility Test Result H/L Range Note Laboratory test 05/24/2019 [facility] HCG < 0.60 1 finding mIU/mL Laboratory test 05/24/2019 [facility] Poc , Negative Negative 2 finding Urine Poc Urinalysis 05/24/2019 [facility] Poc Glucose, Negative Negative Urine Poc Bilirubin, Urine Negative Negative Poc Ketone, Urine Negative Negative Poc Specific [place], Urine 1.025 Normal 1.010-1.030 Poc Blood, Urine 3+ Abnormal Negative Poc pH, Urine 6.5 Normal 5-9 Poc Protein, Urine Negative Negative Poc Urobilinogen, Urine 1.0 Negative Poc Nitrite, Urine Negative Negative Poc Leukocytes, Urine Negative Negative Poc Color, Urine Yellow Poc Clarity, Urine Clear 3 Laboratory test finding 02/17/2019 [facility] Lipase 16 U/L Normal 11.0-82.0 C Reactive Protein 18.33 mg/L High <8.01 Comp Metabolic Panel 02/17/2019 [facility] Sodium 140 mmol/L Normal 135-145 Potassium 3.3 mmol/L Low 3.5-5.0 Chloride 107 mmol/L Normal 101-111 Co2 Carbon Dioxide 27 mmol/L Normal 22-32 Anion Gap 6 mmol/L Normal 2-11 Glucose 98 mg/dL Normal 70-100 Blood Urea Nitrogen 11 mg/dL Normal 6-24 Creatinine 0.61 mg/dL Normal 0.51-0.95 BUN/Creatinine Ratio 18.0 Normal 8-20 Calcium 7.8 mg/dL Low 8.6-10.3 Total Protein 5.5 g/dL Low 6.4-8.9 Albumin 3.0 g/dL Low 3.2-5.2 Globulin 2.5 g/dL Normal 2-4 Albumin/Globulin Ratio 1.2 Normal 1-3 Total Bilirubin 0.20 mg/dL Normal 0.2-1.0 Alkaline Phosphatase 54 U/L Normal 34-104 Alt 12 U/L Normal 7-52 Ast 16 U/L Normal 13-39 Egfr Non- 116.8 >60 Egfr 141.3 >60 4 Urinalysis Profile 02/17/2019 [facility] Urine Color Yellow Urine Appearance Cloudy Urine Specific [place] 1.019 Normal 1.010-1.030 Urine pH 7.0 Normal 5-9 Urine Urobilinogen Negative Negative Urine Ketones Negative Negative Urine Protein Negative Negative Urine Leukocytes Negative Negative Urine Blood Negative Negative Urine Nitrite Negative Negative Urine Bilirubin Negative Negative Urine Glucose Negative Negative Laboratory test 02/17/2019 [facility] Lactic Acid 0.5 mmol/L Normal 0.5-2.0 5 finding CBC Auto Diff 02/17/2019 [facility] White Blood 3.6 10^3/uL Normal 3.5-10.8 Count Red Blood Count 4.41 10^6/uL Normal 3.70-4.87 Hemoglobin 11.1 g/dL Low 12.0-16.0 Hematocrit 33 % Low 35-47 Mean Corpuscular Volume 76 fL Low 80-97 Mean Corpuscular Hemoglobin 25 pg Low 27-31 Mean Corpuscular HGB Conc 33 g/dL Normal 31-36 Red Cell Distribution Width 15 % Normal 10-15 Platelet Count 275 10^3/uL Normal 150-450 Mean Platelet Volume 7.4 fL Normal 7.4-10.4 Abs Neutrophils 2.3 10^3/uL Normal 1.5-7.7 Abs Lymphocytes 0.8 10^3/uL Low 1.0-4.8 Abs Monocytes 0.5 10^3/uL Normal 0-0.8 Abs Eosinophils 0.0 10^3/uL Normal 0-0.6 Abs Basophils 0.0 10^3/uL Normal 0-0.2 Abs Nucleated RBC 0.0 10^3/uL Granulocyte % 63.5 % Lymphocyte % 22.3 % Monocyte % 13.2 % Eosinophil % 0.6 % Basophil % 0.4 % Nucleated Red Blood Cells % 0.1 Ova & Parasites 02/17/2019 [facility] Parasitic Exam, See Comment 6 Full Result Laboratory test 02/17/2019 [facility] Stool Culture SEE RESULT BELOW 7 finding C Difficile PCR SEE RESULT BELOW 8 O P: 02/17/2019 [facility] O P: SEE 9 Giardia/Cryptospor Giardia/Cryptospor RESULT Screen Screen BELOW CBC Auto Diff 02/12/2019 [facility] White Blood Count 5.8 Normal 3.5 10^3/uL -10 .8 Red Blood Count 4.50 10^6/uL Normal 3.70-4.87 Hemoglobin 11.7 g/dL Low 12.0-16.0 Hematocrit 35 % Normal 35-47 Mean Corpuscular Volume 78 fL Low 80-97 Mean Corpuscular Hemoglobin 26 pg Low 27-31 Mean Corpuscular HGB Conc 33 g/dL Normal 31-36 Red Cell Distribution Width 15 % Normal 10-15 Platelet Count 234 10^3/uL Normal 150-450 Mean Platelet Volume 8.6 fL Normal 7.4-10.4 Abs Neutrophils 4.1 10^3/uL Normal 1.5-7.7 Abs Lymphocytes 0.8 10^3/uL Low 1.0-4.8 Abs Monocytes 0.9 10^3/uL High 0-0.8 Abs Eosinophils 0.1 10^3/uL Normal 0-0.6 Abs Basophils 0.0 10^3/uL Normal 0-0.2 Abs Nucleated RBC 0.0 10^3/uL Granulocyte % 69.8 % Lymphocyte % 14.0 % Monocyte % 14.6 % Eosinophil % 1.4 % Basophil % 0.2 % Nucleated Red Blood Cells % 0.0 Comp Metabolic Panel 02/12/2019 [facility] Sodium 138 mmol/L Normal 135-145 Potassium 3.6 mmol/L Normal 3.5-5.0 Chloride 105 mmol/L Normal 101-111 Co2 Carbon Dioxide 27 mmol/L Normal 22-32 Anion Gap 6 mmol/L Normal 2-11 Glucose 119 mg/dL High 70-100 Blood Urea Nitrogen 8 mg/dL Normal 6-24 Creatinine 0.66 mg/dL Normal 0.51-0.95 BUN/Creatinine Ratio 12.1 Normal 8-20 Calcium 8.4 mg/dL Low 8.6-10.3 Total Protein 6.1 g/dL Low 6.4-8.9 Albumin 3.4 g/dL Normal 3.2-5.2 Globulin 2.7 g/dL Normal 2-4 Albumin/Globulin Ratio 1.3 Normal 1-3 Total Bilirubin 0.20 mg/dL Normal 0.2-1.0 Alkaline Phosphatase 52 U/L Normal 34-104 Alt 12 U/L Normal 7-52 Ast 11 U/L Low 13-39 Egfr Non- 106.6 >60 Egfr 129.0 >60 10 CBC Auto Diff 02/08/2019 [facility] White Blood 7.1 10^3/uL Normal 3.5-10.8 Count Red Blood Count 4.35 10^6/uL Normal 3.70-4.87 Hemoglobin 11.0 g/dL Low 12.0-16.0 Hematocrit 34 % Low 35-47 Mean Corpuscular Volume 78 fL Low 80-97 Mean Corpuscular Hemoglobin 25 pg Low 27-31 Mean Corpuscular HGB Conc 33 g/dL Normal 31-36 Red Cell Distribution Width 15 % Normal 10-15 Platelet Count 172 10^3/uL Normal 150-450 Mean Platelet Volume 9.2 fL Normal 7.4-10.4 Abs Neutrophils 5.3 10^3/uL Normal 1.5-7.7 Abs Lymphocytes 1.0 10^3/uL Normal 1.0-4.8 Abs Monocytes 0.8 10^3/uL Normal 0-0.8 Abs Eosinophils 0.1 10^3/uL Normal 0-0.6 Abs Basophils 0.0 10^3/uL Normal 0-0.2 Abs Nucleated RBC 0.0 10^3/uL Granulocyte % 74.1 % Lymphocyte % 13.9 % Monocyte % 10.8 % Eosinophil % 0.9 % Basophil % 0.3 % Nucleated Red Blood Cells % 0.0 Laboratory test 02/08/2019 [facility] HCG < 0.60 mIU/mL 11 finding Comp Metabolic 02/08/2019 [facility] Sodium 137 mmol/L Normal 135-14 Panel 5 Potassium 3.2 mmol/L Low 3.5-5.0 Chloride 106 mmol/L Normal 101-111 Co2 Carbon Dioxide 24 mmol/L Normal 22-32 Anion Gap 7 mmol/L Normal 2-11 Calcium 8.5 mg/dL Low 8.6-10.3 Albumin 4.0 g/dL Normal 3.2-5.2 Total Bilirubin 0.30 mg/dL Normal 0.2-1.0 Glucose 108 mg/dL High 70-100 Blood Urea Nitrogen 9 mg/dL Normal 6-24 Creatinine 0.65 mg/dL Normal 0.51-0.95 BUN/Creatinine Ratio 13.8 Normal 8-20 Total Protein 6.7 g/dL Normal 6.4-8.9 Globulin 2.7 g/dL Normal 2-4 Albumin/Globulin Ratio 1.5 Normal 1-3 Alkaline Phosphatase 57 U/L Normal 34-104 Alt 12 U/L Normal 7-52 Ast 13 U/L Normal 13-39 Egfr Non- 108.5 >60 Egfr 131.3 >60 12 Laboratory test finding 02/08/2019 [facility] Lipase 11 U/L Normal 11.0-82.0 C Reactive Protein 114.09 mg/L High <8.01 Lactic Acid 1.2 mmol/L Normal 0.5-2.0 13 Urinalysis Profile 02/08/2019 [facility] Urine Color Autumn Urine Appearance Cloudy Urine Specific [place] 1.023 Normal 1.010-1.030 Urine pH 5.0 Normal 5-9 Urine Urobilinogen Negative Negative Urine Ketones Negative Negative Urine Protein Negative Negative Urine Leukocytes Trace Abnormal Negative Urine Blood 2+ Abnormal Negative Urine Nitrite Positive Abnormal Negative Urine Bilirubin Negative Negative Urine Glucose Negative Negative Urine White Blood Cell 2+(11-20/hpf) Abnormal Absent Urine Red Blood Cell 2+(6-10/hpf) Abnormal Absent Urine Bacteria 1+ Abnormal Absent Urine Squamous Epithelial Cell Present Abnormal Absent Laboratory test 02/08/2019 [facility] TSH (Thyroid 1.87 Normal 0.34- 5.60 finding Stim Horm) mcIU/mL Urine Culture And 02/08/2019 [facility] Urine Culture SEE RESULT 14 Sensitivities BELOW 1 <5.0 Negative 5.0 - 25.0 Indeterminate (Repeat testing recommended after 72 hours) >25.0 Positive Perimenopausal women can display HCG levels of up to 20 mIU/mL 2 [employer] Tobacco: [id number] Test Disclaimer: Positive bacteria, red blood cells, white blood cells, early , low specific gravity, and other factors may cause false positive or negative results. It is recommended to retest unexpected and borderline results with a serum test when applicable. If is still suspected, please repeat test after 48 to 72 hours. 3 [employer] Tobacco: [id number] 4 Because ethnic data is not always readily available, this report includes an eGFR for both -Americans and non- Americans. The National Kidney Disease Education Program (NKDEP) does not endorse the use of the MDRD equation for patients that are not between the ages of 18 and 70, are , have extremes of body size, muscle mass, or nutritional status, or are non- or non-. According to the National Kidney Foundation, irrespective of diagnosis, the stage of the disease is based on the level of kidney function: Stage Description GFR(mL/min/1.73 m(2)) 1 Kidney damage with normal or decreased GFR 90 2 Kidney damage with mild decrease in GFR 60-89 3 Moderate decrease in GFR 30-59 4 Severe decrease in GFR 15-29 5 Kidney failure <15 (or dialysis) 5 [facility] Severe Sepsis and Septic Shock Management Bundle Measure requires all lactic acids initially measuring >2.0 mmol/L be repeated. 6 SOURCE: STOOL PARASITIC EXAMINATION FINAL No parasites seen. Leukocytes, moderate. Cryptosporidium, Cyclospora, and microsporidia are not readily detected by this method. Single negative specimen does not rule out parasitic infection. Test Performed by: [place] [id number] SEE RESULT BELOW Name: ИРИНА MEJÍAAllyson Siddiqui : [address]: Aron Anderson MD Acct: [id number] Unit: [id number] AGE: 28 Location: ED Re02/17/19 SEX: F Status: DEP ER SPEC: [id number] BERNIE: 02/17/19 [facility] DR: Aron Anderson MD REQ: [id number] RECD: 02/17/19 STATUS: VIVIANA JOSHUA DR: Charlie Orozco MD _ SOURCE: STOOL SPDESC: ORDERED: Stool Culture Procedure Result Reported Site Stool Culture Final 02/19/19- 1502 ML Result No enteric pathogens isolated Testing for Salmonella, Shigella, Aeromonas, Plesiomonas, Yersinia and Campylobacter are included in a Stool Culture. Vibrio spp not routinely tested for in a stool culture. If testing is desired, please request specifically when placing test order. Sensitivities not routinely performed on stool isolates, as antibiotics may prolong the carriage rate of bacteria. Please contact the microbiology lab if sensitivities are required. Stool Specimen Description Final 02/17/19- 1434 ML Stool Color Brown Stool Form Nonformed Stool Consistency Liquid Shiga Toxin 1 2 Final 02/20/19- 1229 ML Organism 1 Negative Shiga Toxin 1 2 Immunochromatographic Assay * - Main Lab . END OF REPORT DEPARTMENT OF PATHOLOGY, [address] [place] [address] Shemar Coyle M.D. Director [facility] # [id number] 8 SEE RESULT BELOW Name: JOYCE MEJÍA I : [address]: Aron Anderson MD Acct: [id number] Unit: [id number] AGE: 28 Location: ED Re02/17/19 SEX: F Status: DEP ER SPEC: [id number] BERNIE: 02/17/19-1415 [facility] DR: Aron Anderson MD REQ: [id number] RECD: 02/17/19 STATUS: COMP TAWANDAHR DR: Charlie Orozco MD _ SOURCE: STOOL SPDESC: ORDERED: C. diff PCR COMMENTS: Verbal to [id number] by [id number] at 1514 on 02/17/19. Results read back accurately. Procedure Result Reported Site Stool Specimen Description Final 02/18/19- 0706 ML Stool Color Brown Stool Form Nonformed Stool Consistency Liquid C. difficile PCR Final 02/17/19- 1514 ML Organism 1 027 Presumptive NEGATIVE Organism 2 Toxigenic C.diff POSITIVE * ML - Main Lab . END OF REPORT DEPARTMENT OF PATHOLOGY, [address] [place] [address] Shemar Coyle M.D. Director [facility] # [id number] 9 SEE RESULT BELOW Name: JOYCE MEJÍA I : [address]: Aron Anderson MD Acct: [id number] Unit: [id number] AGE: 28 Location: ED Re02/17/19 SEX: F Status: DEP ER SPEC: [id number] BERNIE: 02/17/[address]: Aron Anderson MD REQ: [id number] RECD: 02/17/19 STATUS: VIVIANA JOSHUA DR: Charlie Orozco MD _ SOURCE: STOOL [facility]: ORDERED: O P: Giar/Crypt Procedure Result Reported Site O P: Giardia/Cryptospor Screen Final 02/20/19- 145 ML Organism 1 Neg Cryptosporidium/Giardia Giardia and cryptosporidium antigen testing performed by enzyme immunoassay. Specimen has been forwarded to reference lab for microscopic parasite examination. TEST LIMITATIONS: As with all diagnostic procedures, the results obtained should be used in conjunction with other clinical information available to the physician, including confirmation by another method. Negative results can occur in samples containing antigen below lower limits of detection of the assay. One negative specimen does not rule out the possibility of a parasitic infection. To improve detection it is recommended that three specimens be collected on separate days over a period of not more than seven days. The use of colonic washes, aspirates or other diluted sample types has not been established and could affect the performance of the assay. Stool samples contaminated with an oily or particulate base (eg. Barium, mineral oil etc.) could interfere with the test and are not recommended. * ML - Main Lab . END OF REPORT DEPARTMENT OF PATHOLOGY, [address] [place] [address] Shemar Coyle M.D. Director [facility] # [id number] 10 Because ethnic data is not always readily available, this report includes an eGFR for both -Americans and non- Americans. The National Kidney Disease Education Program (NKDEP) does not endorse the use of the MDRD equation for patients that are not between the ages of 18 and 70, are , have extremes of body size, muscle mass, or nutritional status, or are non- or non-. According to the National Kidney Foundation, irrespective of diagnosis, the stage of the disease is based on the level of kidney function: Stage Description GFR(mL/min/1.73 m(2)) 1 Kidney damage with normal or decreased GFR 90 2 Kidney damage with mild decrease in GFR 60-89 3 Moderate decrease in GFR 30-59 4 Severe decrease in GFR 15-29 5 Kidney failure <15 (or dialysis) 11 <5.0 Negative 5.0 - 25.0 Indeterminate (Repeat testing recommended after 72 hours) >25.0 Positive Perimenopausal women can display HCG levels of up to 20 mIU/mL 12 Because ethnic data is not always readily available, this report includes an eGFR for both -Americans and non- Americans. The National Kidney Disease Education Program (NKDEP) does not endorse the use of the MDRD equation for patients that are not between the ages of 18 and 70, are , have extremes of body size, muscle mass, or nutritional status, or are non- or non-. According to the National Kidney Foundation, irrespective of diagnosis, the stage of the disease is based on the level of kidney function: Stage Description GFR(mL/min/1.73 m(2)) 1 Kidney damage with normal or decreased GFR 90 2 Kidney damage with mild decrease in GFR 60-89 3 Moderate decrease in GFR 30-59 4 Severe decrease in GFR 15-29 5 Kidney failure <15 (or dialysis) 13 [facility] Severe Sepsis and Septic Shock Management Bundle Measure requires all lactic acids initially measuring >2.0 mmol/L be repeated. 14 SEE RESULT BELOW Name: MEJÍAJOYCE I : [address]: Ephraim Rodgers MD Acct: [id number] Unit: [id number] AGE: 28 Location: ED Re02/08/19 SEX: F Status: REG ER SPEC: [id number] BERNIE: 02/08/[address]: Jeison Gonzalez MD REQ: [id number] RECD: 02/08/19 STATUS: VIVIANA JOSHUA DR: Charlie Orozco MD [facility] _ SOURCE: URINE SPDESC: ORDERED: Urine Culture Procedure Result Reported Site Urine Culture Final 02/10/19- 0835 ML Organism 1 ESCHERICHIA COLI [place] Count >100,000 (Many) CFU/ML 1. ESCHERICHIA COLI M.I.C. RX --------- ------ Ampicillin >=32 R Cefazolin <=4 S Cefepime <=1 S Ceftriaxone <=1 S Ciprofloxacin >=4 R Gentamicin >=16 R Levofloxacin >=8 R Meropenem <=0.25 S Nitrofurantoin <=16 S Tetracycline <=1 S Pipercillin/Tazobactam <=4 S Trimethoprim/Sulfamethoxazole >=320 R Amoxicillin/Clavulanic Acid 8 S Aztreonam <=1 S Contact the Microbiology Department for any additional antibiotic reporting. * ML - Main Lab . END OF REPORT DEPARTMENT OF PATHOLOGY, [address] [place] [address] Shemar Coyle M.D. Director [facility] # [id number] Procedures Description No Information Available Medical Devices Description No Information Available Encounters Type Date Location Provider Dx Diagnosis Office Visit 06/07/2019 [facility] Blas Gayle, E03.9 Hypothyroidism, 11:15a N.P. unspecified I10 Essential (primary) hypertension N39.46 Mixed incontinence N20.9 Urinary calculus, unspecified K64.9 Unspecified hemorrhoids L20.9 Atopic dermatitis, unspecified J30.9 Allergic rhinitis, unspecified F41.9 Anxiety disorder, unspecified G47.00 Insomnia, unspecified F90.0 Attn-defct hyperactivity disorder, predom inattentive type F31.81 Bipolar II disorder E55.9 Vitamin D deficiency, unspecified G43.119 Migraine with aura, intractable, without status migrainosus S02.82xD Fracture of oth skull and facial bones, left side, 7thD F07.81 Postconcussional syndrome N83.202 Unspecified ovarian cyst, left side R10.31 Right lower quadrant pain N91.1 Secondary amenorrhea K52.3 Indeterminate colitis Office Visit 02/24/2019 9:30a [facility] Blas Gayle, E03.9 Hypothyroidism, N.P. unspecified I10 Essential (primary) hypertension N39.46 Mixed incontinence N20.9 Urinary calculus, unspecified K64.9 Unspecified hemorrhoids L20.9 Atopic dermatitis, unspecified J30.9 Allergic rhinitis, unspecified F41.9 Anxiety disorder, unspecified G47.00 Insomnia, unspecified F90.0 Attn-defct hyperactivity disorder, predom inattentive type F31.81 Bipolar II disorder E55.9 Vitamin D deficiency, unspecified G43.119 Migraine with aura, intractable, without status migrainosus S02.82xD Fracture of oth skull and facial bones, left side, 7thD F07.81 Postconcussional syndrome N83.202 Unspecified ovarian cyst, left side R10.31 Right lower quadrant pain N91.1 Secondary amenorrhea K52.3 Indeterminate colitis Office Visit 01/09/2019 9:30a [facility] Blas Gayle, E03.9 Hypothyroidism, N.P. unspecified [...] Acute pharyngitis, unspecified J20.9 Acute bronchitis, unspecified N83.202 Unspecified ovarian cyst, left side R10.31 Right lower quadrant pain R11.2 Nausea with vomiting, unspecified N91.1 Secondary amenorrhea Office Visit 12/06/2018 10:30a [facility] E03.9 HypothyroidismAnne M.D. unspecified I10 Essential (primary) hypertension N39.46 Mixed [...] Acute pharyngitis, unspecified J20.9 Acute bronchitis, unspecified N83.202 Unspecified ovarian cyst, left side R10.31 Right lower quadrant pain R11.2 Nausea with vomiting, unspecified N91.1 Secondary amenorrhea Assessments Date Code Description Provider 06/07/2019 E03.9 Hypothyroidism, unspecified Blas Gayle N.P. 06/07/2019 I10 Essential (primary) hypertension Blas Gayle N.P. 06/07/2019 N39.46 Mixed incontinence Blas Gayle N.P. 06/07/2019 N20.9 Urinary calculus, unspecified Blas Gayle N.P. 06/07/2019 K64.9 Unspecified hemorrhoids Blas Gayle N.P. 06/07/2019 L20.9 Atopic dermatitis, unspecified Blas Gayle N.P. 06/07/2019 J30.9 Allergic rhinitis, unspecified Blas Gayle, N.P. 06/07/2019 F41.9 Anxiety disorder, unspecified Blas Gayle N.P. 06/07/2019 G47.00 Insomnia, unspecified Blas Gayle N.P. 06/07/2019 F90.0 Attention-deficit hyperactivity disorder, Blas Gayle N.PJabier predominantly inattentive type 06/07/2019 F31.81 Bipolar II disorder Blas Gayle N.PJabier 06/07/2019 E55.9 Vitamin D deficiency, unspecified Blas Gayle, N.P. 06/07/2019 G43.119 Migraine with aura, intractable, without Blas Gayle N.PJabier status migrainosus 06/07/2019 S02.82xD Fracture of other specified skull and Blas Gayle N.PJabier facial bones, left side, subsequent encounter for fracture with routine healing 06/07/2019 F07.81 Postconcussional syndrome Blas Gayle N.P. 06/07/2019 N83.202 Unspecified ovarian cyst, left side Blas Gayle N.P. 06/07/2019 R10.31 Right lower quadrant pain Blas Gayle N.P. 06/07/2019 N91.1 Secondary amenorrhea Blas Gayle N.P. 06/07/2019 K52.3 Indeterminate colitis Blas Gayle N.P. 02/24/2019 E03.9 Hypothyroidism, unspecified Blas Gayle N.P. 02/24/2019 I10 Essential (primary) hypertension Blas Gayle N.P. 02/24/2019 N39.46 Mixed incontinence Blas Gayle N.P. 02/24/2019 N20.9 Urinary calculus, unspecified Blas Gayle N.P. 02/24/2019 K64.9 Unspecified hemorrhoids Blas Gayle N.P. 02/24/2019 L20.9 Atopic dermatitis, unspecified Blas Gayle N.P. 02/24/2019 J30.9 Allergic rhinitis, unspecified Blas Gayle N.P. 02/24/2019 F41.9 Anxiety disorder, unspecified Blas Gayle N.P. 02/24/2019 G47.00 Insomnia, unspecified Blas Gayle N.P. 02/24/2019 F90.0 Attention-deficit hyperactivity disorder, Blas Gayle N.P. predominantly inat 02/24/2019 F31.81 Bipolar II disorder Blas Gayle N.P. 02/24/2019 E55.9 Vitamin D deficiency, unspecified Blas Gayle N.P. 02/24/2019 G43.119 Migraine with aura, intractable, without Blas Gayle N.PJabier status migrainosus 02/24/2019 S02.82xD Fracture of other specified skull and Blas Gayle N.Ravin facial bones, left heide 02/24/2019 F07.81 Postconcussional syndrome Blas Gayle N.P. 02/24/2019 N83.202 Unspecified ovarian cyst, left side Blas Gayle N.P. 02/24/2019 R10.31 Right lower quadrant pain Blas Gayle N.PJabier 02/24/2019 N91.1 Secondary amenorrhea Blas Gayle N.PJabier 02/24/2019 K52.3 Indeterminate colitis Blas Gayle N.P. 01/31/2019 E03.9 Hypothyroidism, unspecified Charlie Orozco M.D. 01/31/2019 I10 Essential (primary) hypertension Charlie Orozco M.D. 01/31/2019 N39.46 Mixed incontinence Charlie Orozco M.D. 01/31/2019 N20.9 Urinary calculus, unspecified Charlie Orozco M.D. 01/31/2019 K59.00 Constipation, unspecified Charlie Orozco M.D. 01/31/2019 K64.9 Unspecified hemorrhoids Charlie Orozco M.D. 01/31/2019 L20.9 Atopic dermatitis, unspecified Charlie Orozco M.D. 01/31/2019 J30.9 Allergic rhinitis, unspecified Charlie Orozco M.D. 01/31/2019 F41.9 Anxiety disorder, unspecified Charlie Orozco M.D. 01/31/2019 G47.00 Insomnia, unspecified Charlie Orozco M.D. 01/31/2019 F90.0 Attention-deficit hyperactivity disorder, Charlie Orozco M.D. predominantly inat 01/31/2019 F31.81 Bipolar II disorder Charlie Orozco M.D. 01/31/2019 E55.9 Vitamin D deficiency, unspecified Charlie Orozco M.D. 01/31/2019 G43.119 Migraine with aura, intractable, without ErnestoCharlie siddiqui M.D. status migrainosus 01/31/2019 S02.82xD Fracture of other specified skull and ErnestoCharlie alvarado M.D. facial bones, left heide 01/31/2019 F07.81 Postconcussional syndrome Charlie Orozco M.D. 01/31/2019 J02.9 Acute pharyngitis, unspecified Charlie Orozco M.D. 01/31/2019 J20.9 Acute bronchitis, unspecified Charlie Orozco M.D. 01/31/2019 N83.202 Unspecified ovarian cyst, left side Charlie Orozco M.D. 01/31/2019 R10.31 Right lower quadrant pain Charlie Orozco M.D. 01/31/2019 R11.2 Nausea with vomiting, unspecified Charlie Orozco M.D. 01/31/2019 N91.1 Secondary amenorrhea Charlie Orozco M.D. 01/23/2019 E03.9 Hypothyroidism, unspecified Blas Gayle N.PJabier 01/23/2019 I10 Essential (primary) hypertension Blas Gayle N.PJabier 01/23/2019 N39.46 Mixed incontinence Blas Gayle N.PJabier 01/23/2019 N20.9 Urinary calculus, unspecified Blas Gayle N.PJabier 01/23/2019 K59.00 Constipation, unspecified Blas Gayle N.P. 01/23/2019 K64.9 Unspecified hemorrhoids Blas Gayle N.PJabier 01/23/2019 L20.9 Atopic dermatitis, unspecified Blas Gayle N.PJabier 01/23/2019 J30.9 Allergic rhinitis, unspecified Blas Gayle N.PJabier 01/23/2019 F41.9 Anxiety disorder, unspecified Blas Gayle N.P. 01/23/2019 G47.00 Insomnia, unspecified Blas Gayle N.PJabier 01/23/2019 F90.0 Attention-deficit hyperactivity disorder, Allyson Scruggs.Ravin predominantly inat 01/23/2019 F31.81 Bipolar II disorder Blas Gayle N.P. 01/23/2019 E55.9 Vitamin D deficiency, unspecified Blas Gayle N.PJabier 01/23/2019 G43.119 Migraine with aura, intractable, without Blas Gayle N.PJabier status migrainosus 01/23/2019 S02.82xD Fracture of other specified skull and Blas Gayle N.PJabier facial bones, left heide 01/23/2019 F07.81 Postconcussional syndrome Blas Gayle N.PJabier 01/23/2019 J02.9 Acute pharyngitis, unspecified Blas Gayle N.P. 01/23/2019 J20.9 Acute bronchitis, unspecified Blas Gayle N.PJabier 01/23/2019 N83.202 Unspecified ovarian cyst, left side Blas Gayle N.P. 01/23/2019 R10.31 Right lower quadrant pain Blas Gayle N.P. 01/23/2019 R11.2 Nausea with vomiting, unspecified Blas Gayle N.PJabier 01/23/2019 N91.1 Secondary amenorrhea Blas Gayle N.P. 01/09/2019 E03.9 Hypothyroidism, unspecified Blas Gayle N.P. 01/09/2019 I10 Essential (primary) hypertension Blas Gayle N.PJabier 01/09/2019 N39.46 Mixed incontinence Blas Gayle N.P. 01/09/2019 N20.9 Urinary calculus, unspecified Blas Gayle N.P. 01/09/2019 K59.00 Constipation, unspecified Blas Gayle N.P. 01/09/2019 K64.9 Unspecified hemorrhoids Blas Gayle N.P. 01/09/2019 L20.9 Atopic dermatitis, unspecified Blas Gayle N.P. 01/09/2019 J30.9 Allergic rhinitis, unspecified Blas Gayle N.P. 01/09/2019 F41.9 Anxiety disorder, unspecified Blas Gayle N.PJabier 01/09/2019 G47.00 Insomnia, unspecified Allyson Scruggs.P. 01/09/2019 F90.0 Attention-deficit hyperactivity disorder, Blas Gayle N.P. predominantly inat 01/09/2019 F31.81 Bipolar II disorder Blas Gayle N.PJabier 01/09/2019 E55.9 Vitamin D deficiency, unspecified Blas Gayle N.P. 01/09/2019 G43.119 Migraine with aura, intractable, without Allyson Scruggs.Ravin status migrainosus 01/09/2019 S02.82xD Fracture of other specified skull and Blas Gayle N.Ravin facial bones, left heide 01/09/2019 F07.81 Postconcussional syndrome Blas Gayle N.P. 01/09/2019 J02.9 Acute pharyngitis, unspecified Allyson Scruggs.PJabier 01/09/2019 J20.9 Acute bronchitis, unspecified Blas Gayle N.PJabier 01/09/2019 N83.202 Unspecified ovarian cyst, left side Allyson Scruggs.PJabier 01/09/2019 R10.31 Right lower quadrant pain Allyson Scruggs.PJabier 01/09/2019 R11.2 Nausea with vomiting, unspecified Blas Gayle N.PJabier 01/09/2019 N91.1 Secondary amenorrhea Allyson Scruggs.PJabier 01/03/2019 E03.9 Hypothyroidism, unspecified Charlie Orozco M.D. 01/03/2019 I10 Essential (primary) hypertension Charlie Orozco M.D. 01/03/2019 N39.46 Mixed incontinence Charlie Orozco M.D. 01/03/2019 N20.9 Urinary calculus, unspecified Charlie Orozco M.D. 01/03/2019 K59.00 Constipation, unspecified Charlie Orozco M.D. 01/03/2019 K64.9 Unspecified hemorrhoids Charlie Orozco M.D. 01/03/2019 L20.9 Atopic dermatitis, unspecified Charlie Orozco M.D. 01/03/2019 J30.9 Allergic rhinitis, unspecified Charlie Orozco M.D. 01/03/2019 F41.9 Anxiety disorder, unspecified Charlie Orozco M.D. 01/03/2019 G47.00 Insomnia, unspecified Charlie Orozco M.D. 01/03/2019 F90.0 Attention-deficit hyperactivity disorder, Charlie Orozco M.D. predominantly inat 01/03/2019 F31.81 Bipolar II disorder Charlie Orozco M.D. 01/03/2019 E55.9 Vitamin D deficiency, unspecified Charlie Orozco M.D. 01/03/2019 G43.119 Migraine with aura, intractable, without Charlie Orozco M.D. status migrainosus 01/03/2019 S02.82xD Fracture of other specified skull and Charlie Orozco M.D. facial bones, left heide 01/03/2019 F07.81 Postconcussional syndrome Charlie Orozco M.D. 01/03/2019 J02.9 Acute pharyngitis, unspecified Charlie Orozco M.D. 01/03/2019 J20.9 Acute bronchitis, unspecified Charlie Orozco M.D. 01/03/2019 N83.202 Unspecified ovarian cyst, left side Charlie Orozco M.D. 01/03/2019 R10.31 Right lower quadrant pain Charlie Orozco M.D. 01/03/2019 R11.2 Nausea with vomiting, unspecified Charlie Orozco M.D. 01/03/2019 N91.1 Secondary amenorrhea Charlie Orozco M.D. 12/06/2018 E03.9 Hypothyroidism, unspecified Charlie Orozco M.D. 12/06/2018 I10 Essential (primary) hypertension Charlie Orozco M.D. 12/06/2018 N39.46 Mixed incontinence Charlie Orozco M.D. 12/06/2018 N20.9 Urinary calculus, unspecified Charlie Orozco M.D. 12/06/2018 K59.00 Constipation, unspecified ErnestoCharlie alvarado M.D. 12/06/2018 K64.9 Unspecified hemorrhoids Charlie Orozco M.D. 12/06/2018 L20.9 Atopic dermatitis, unspecified Charlie Orozco M.D. 12/06/2018 J30.9 Allergic rhinitis, unspecified ErnestoCharlie alvarado M.D. 12/06/2018 F41.9 Anxiety disorder, unspecified Charlie Orozco M.D. 12/06/2018 G47.00 Insomnia, unspecified Charlie Orozco M.D. 12/06/2018 F90.0 Attention-deficit hyperactivity disorder, Charlie Orozco M.D. predominantly inat 12/06/2018 F31.81 Bipolar II disorder Charlie Orozco M.D. 12/06/2018 E55.9 Vitamin D deficiency, unspecified Charlie Orozco M.D. 12/06/2018 G43.119 Migraine with aura, intractable, without ErnestoCharlie siddiqui M.D. status migrainosus 12/06/2018 S02.82xD Fracture of other specified skull and ErnestoCharlie alvarado M.D. facial bones, left heide 12/06/2018 F07.81 Postconcussional syndrome Charlie Orozco M.D. 12/06/2018 J02.9 Acute pharyngitis, unspecified Charlie Orozco M.D. 12/06/2018 J20.9 Acute bronchitis, unspecified Charlie Orozco M.D. 12/06/2018 N83.202 Unspecified ovarian cyst, left side Charlie Orozco M.D. 12/06/2018 R10.31 Right lower quadrant pain Charlie Orozco M.D. 12/06/2018 R11.2 Nausea with vomiting, unspecified Ernesto, Ahmad M., M.D. 12/06/2018 N91.1 Secondary amenorrhea Charlie Orozco M.D. Plan of Treatment 06/07/2019 - Blas Gayle N.Colby.E03.9 Hypothyroidism, unspecifiedComments:RX REVIEWED AND UPDATEDF/U TSH/ FT4I10 Essential (primary) hypertensionComments: CHECK BP TIW ( PRN)DIET AND FLUID COUNSELING LOW SODIUM DIETWT LOSSF/U LABN39.46 Mixed incontinenceComments:COUNCELED SKIN CARE INSTRUCTIONSUSE DIAPER PRNN20.9 Urinary calculus, unspecifiedComments:INCREASE PO FLUID > 2 L PER DAYDIET INSTRUCTION REVIEWED F/U WITH UROLOGY PRNK64.9 Unspecified hemorrhoidsComments:AVOID CONSTIPATOIN INCREASE FIBER IN DIETLAXATIVE PRNLUBRICATE ANAL AREA WITH LOTION PRN FOR LPNRWQEG78.9 Atopic dermatitis, unspecifiedComments:SKIN CARE INSTRUCTIONS EUCERIN CREAM OR BABY OIL 2-3 APPLICATION PER DAYUSE MOISTURIZING SOAPAVOID PROLONGED WATER EXPOSUREAVOID USING HOT WATER IN ZLPCOQM98.9 Allergic rhinitis, unspecifiedComments:INCREASE PO FLUID USE ANTIHISTAMINE PRN SECOND HAND SMOKING UFATDSYVPH55.9 Anxiety disorder, unspecifiedComments:COUNCELLING AND REASSURANCE RELAXATION TECHNIQUESSTRESSORS IN LIFE AVOID ALL ENERGY/HIGH CAFFEINE CDWVZMV18.00 Insomnia , kyskczewfyrU44.0 Attention-deficit hyperactivity disorder, predominantly inattentive typeComments:COUNCELLING AND REASSURANCEF/U DIRECTTEACHING ON TIME MANGEMENT AND IMPROVING ORGANIZATIONAL ZYCXQUA84.81 Bipolar II disorderNew Medication:Effexor XR 75 mg - 1 by mouth every dayComments:COUNCELLING AND REASSURANCE RELAXATION TECHNIQUES DISCUSSED COUNSELED RE: STRESSORS IN LIFEE55.9 Vitamin D deficiency, unspecifiedComments:INCREASE EXPOSURE TO SUNREVIEW OF DIETG43.119 Migraine with aura, intractable, without status migrainosusComments:COUNCELLING AND REASSURANCE F/U WITH NEUROLOGY PRNS02.82xD Fracture of other specified skull and facial bones, left side, subsequent encounter for fracture with routine healingComments:FBSGTDLT12.81 Postconcussional syndromeComments:RESOLVEDOBSERVE FOR NOWN83.202 Unspecified ovarian cyst, left sideComments:OBSERVEF/U WITH GYNR10.31 Right lower quadrant painComments:TYLENOL OR MOTRIN PRNINCREASE PO FLUIDF/U QOTXCPOCZ32.1 Secondary amenorrheaComments:OBSERVEF/U WITH OB/GYNK52.3 Indeterminate colitisComments:INCREASE PO FLUID DIET REVIEW WILLIAM DIET PRNIMMODIUM PRN F/U WITH GI Functional Status Description No Information Available Mental Status Description No Information Available Referrals Description No Information Available
[2019-06-10 03:47] LABS: Alcohol < 10 mg/dL (<10); Salicylate < 2.50 mg/dL (<30)
[2019-06-10 04:01] LABS: HCG Pregnancy < 0.60 mIU/mL
[2019-06-10 05:26] LABS: Acetaminophen < 15 mcg/mL; TSH (Thyroid Stimulating Horm) 7.19 mcIU/mL (0.34-5.60)
--- NOTE | 2019-06-10 05:44 | ED ---
Psychiatric Complaint - HPI Summary HPI Summary: Patient is a 28 y/o F presenting to [facility] with complaints of an anxiety attack. She states that she awoke tonight with chest heaviness, SOB, numbness of her left arm, heart "pounding", and blurred vision. She states that when she has anxiety attacks she can typically "talk myself out of it", but was not able to tonight. Episode occurred around 0100 06/10/19. PMHx of junior's disease is noted. Patient vapes and occasionally uses alcohol. PSHx of section x3 and D&C is noted. Allergy to Bactrim and Percocet is reported. 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 Home medications and allergies are reviewed. - History Of Current Complaint Chief Complaint: EDPsychosocial Time Seen by Provider: 06/10/19 02:34 Hx Obtained From: Patient Hx Last Menstrual Period: 03/28/19 Onset/Duration: Sudden Onset Timing: Intermittent Episode Lasting Character: Anxious Aggravating Factor(s): Nothing Alleviating Factor(s): Nothing - Allergies/Home Medications Allergies/Adverse Reactions: Allergies Allergy/AdvReac Type Severity Reaction Status Date / Time sulfamethoxazole Allergy Hives/Diff. Verified 06/10/19 02:23 [From Bactrim] Breathing/I tching trimethoprim [From Bactrim] Allergy Hives/Diff. Verified 06/10/19 02:23 Breathing/I tching oxycodone [From Percocet] AdvReac Intermediate Rash Verified 06/10/19 02:23 PMH/Surg Hx/FS Hx/Imm Hx Endocrine/Hematology History: Reports: Hx Thyroid Disease - HYPOTHYROID, Hx Anemia - HISTORY OF DURING , NO PROBLEMS, TRANSFUSION WITH LAST 3 CHILDREN Denies: Hx Anticoagulant Therapy, Hx Blood Disorders, Hx Diabetes Cardiovascular History: Denies: Hx Hypertension Respiratory History: Reports: Hx Asthma Denies: Hx Chronic Obstructive Pulmonary Disease (COPD) GI History: Reports: Other GI Disorders - colitis Denies: Hx Ulcer Musculoskeletal History: Reports: Hx Arthritis - BILATERAL KNEE AND ANKLES, LEFT GREATER THAN RIGHT Sensory History: Reports: Hx Vision Problem - Left medial wall orbital fx on 06/26/2018 - visual change, resolved on 07/01 Denies: Hx Contacts or Glasses Opthamlomology History: Reports: Hx Vision Problem - Left medial wall orbital fx on 06/26/2018 - visual change, resolved on 07/01 Denies: Hx Contacts or Glasses Neurological History: Reports: Hx Headaches, Hx Migraine, Other Neuro Impairments/Disorders - possible concussion on 06/26/2018? Psychiatric History: Reports: Hx Anxiety - NO MEDICATION, Hx Bipolar Disorder, Other Psychiatric Issues/Disorders - sleep disorders possibly due to stress Denies: Hx Eating Disorder, Hx of Violent Episodes Against Others - Surgical History Surgery Procedure, Year, and Place: 2010, , [facility], [facility] [place]. 04/09/2012 DILATION AND CURETTAGE Hx Anesthesia Reactions: No - NAUSEA AND VOMITING, LOST FEELING IN LEFT ARM, AFTER D&C - Immunization History Date of Tetanus Vaccine: Unknown Infectious Disease History: No Infectious Disease History: Denies: Hx Hepatitis, Hx Human Immunodeficiency Virus (HIV), Traveled Outside the [place] in Last 30 Days - Family History Known Family History: Positive: Cardiac Disease, Other - Crohn's, No malignant hyperthermia, no anesthesia rxn, mood disorder - Social History Alcohol Use: None Hx Substance Use: No Substance Use Type: Reports: None Hx Tobacco Use: Yes Smoking Status (MU): Former Smoker Length of Time of Smoking/Using Tobacco: at age 23 Have You Smoked in the Last Year: No Review of Systems Positive: Blurred Vision Positive: Palpitations, Chest Pain Positive: Shortness Of Breath Positive: Numbness - left arm Positive: Anxious All Other Systems Reviewed And Are Negative: Yes Physical Exam - Summary Physical Exam Summary: General: Well-developed, Well-nourished female. No acute distress. HEENT: Normocephalic, Atraumatic. Eyes: Conjuctiva normal, PERRL. Ears: TMs within normal limits. Nares: (-) discharge, (-) erythema. Oropharynx: Clear, mucous membranes moist, (-) exudates. Neck: Soft, FROM, (-) lymphadenopathy, (-) thyromegaly, (-) JVD. Cardiovascular: Normal sinus rhythm, (-) murmur. Lungs: Clear to auscultation bilaterally (-) wheezes, (-) rales, (-) rhonchi. Abdomen: Soft, non-tender, non-distended, (-) organomegaly, normal bowel sounds. Back: (-) CVA tenderness Extremities: No edema. Skin: Warm, dry, (-) rash. Neuro: Alert and oriented x3, no focal deficits. Psychiatric: Mood normal, affect normal. Triage Information Reviewed: Yes Vital Signs On Initial Exam: Initial Vitals Temp Pulse Resp BP Pulse Ox 97.7 F 75 18 124/93 100 06/10/19 02:19 06/10/19 02:19 06/10/19 02:19 06/10/19 02:19 06/10/19 02:19 Vital Signs Reviewed: Yes Procedures - Sedation Patient Received Moderate/Deep Sedation with Procedure: No Diagnostics - Vital Signs Vital Signs Temp Pulse Resp BP Pulse Ox 06/10/19 05:00 81 97 06/10/19 04:52 83 119/95 98 06/10/19 04:22 82 115/81 98 06/10/19 04:09 78 126/88 98 06/10/19 04:00 77 99 06/10/19 03:00 73 16 99 06/10/19 02:23 75 22 100 06/10/19 02:22 76 36 124/93 100 06/10/19 02:19 97.7 F 75 18 124/93 100 - Laboratory Lab Results: Lab Results 06/10/19 06/10/19 06/10/19 Range/Units 02:33 02:33 02:33 WBC 4.2 (3.5-10.8) 10^3/uL RBC 4.31 (3.70-4.87) 10^6 /uL Hgb 10.9 L (12.0-16.0) g/dL Hct 33 L (35-47) % MCV 77 L (80-97) fL MCH 25 L (27-31) pg MCHC 33 (31-36) g/dL RDW 15 (10-15) % Plt Count 184 (150-450) 10^3/uL MPV 8.8 (7.4-10.4) fL Neut % (Auto) 46.4 % Lymph % (Auto) 41.1 % Traill % (Auto) 9.9 % Eos % (Auto) 1.5 % Baso % (Auto) 1.1 % Absolute Neuts (auto) 1.9 (1.5-7.7) 10^3/ul Absolute Lymphs (auto) 1.7 (1.0-4.8) 10^3/ul Absolute Monos (auto) 0.4 (0-0.8) 10^3/ul Absolute Eos (auto) 0.1 (0-0.6) 10^3/ul Absolute Basos (auto) 0.0 (0-0.2) 10^3/ul Absolute Nucleated RBC 0.0 10^3/ul Nucleated RBC % 0.0 INR (Anticoag Therapy) 0.97 (0.82-1.09) Sodium 139 (135-145) mmol/L Potassium 3.4 L (3.5-5.0) mmol/L Chloride 106 (101-111) mmol/L Carbon Dioxide 27 (22-32) mmol/L Anion Gap 6 (2-11) mmol/L BUN 16 (6-24) mg/dL Creatinine 0.71 (0.51-0.95) mg/dL Est GFR ( Amer) 118.6 (>60) Est GFR (Non-Af Amer) 98.0 (>60) BUN/Creatinine Ratio 22.5 H (8-20) Glucose 90 (70-100) mg/dL Calcium 9.2 (8.6-10.3) mg/dL Total Bilirubin 0.30 (0.2-1.0) mg/dL AST 20 (13-39) U/L ALT 14 (7-52) U/L Alkaline Phosphatase 53 (34-104) U/L Troponin I 0.00 (<0.03) ng/mL Total Protein 7.0 (6.4-8.9) g/dL Albumin 4.1 (3.2-5.2) g/dL Globulin 2.9 (2-4) g/dL Albumin/Globulin Ratio 1.4 (1-3) TSH (0.34-5.60) mcIU/mL Beta HCG, Quant mIU/mL Salicylates (<30) mg/dL Acetaminophen mcg/mL Serum Alcohol (<10) mg/dL 06/10/19 Range/Units 02:35 WBC (3.5-10.8) 10^3/uL RBC (3.70-4.87) 10^6 /uL Hgb (12.0-16.0) g/dL Hct (35-47) % MCV (80-97) fL MCH (27-31) pg MCHC (31-36) g/dL RDW (10-15) % Plt Count (150-450) 10^3/uL MPV (7.4-10.4) fL Neut % (Auto) % Lymph % (Auto) % Traill % (Auto) % Eos % (Auto) % Baso % (Auto) % Absolute Neuts (auto) (1.5-7.7) 10^3/ul Absolute Lymphs (auto) (1.0-4.8) 10^3/ul Absolute Monos (auto) (0-0.8) 10^3/ul Absolute Eos (auto) (0-0.6) 10^3/ul Absolute Basos (auto) (0-0.2) 10^3/ul Absolute Nucleated RBC 10^3/ul Nucleated RBC % INR (Anticoag Therapy) (0.82-1.09) Sodium (135-145) mmol/L Potassium (3.5-5.0) mmol/L Chloride (101-111) mmol/L Carbon Dioxide (22-32) mmol/L Anion Gap (2-11) mmol/L BUN (6-24) mg/dL Creatinine (0.51-0.95) mg/dL Est GFR ( Amer) (>60) Est GFR (Non-Af Amer) (>60) BUN/Creatinine Ratio (8-20) Glucose (70-100) mg/dL Calcium (8.6-10.3) mg/dL Total Bilirubin (0.2-1.0) mg/dL AST (13-39) U/L ALT (7-52) U/L Alkaline Phosphatase (34-104) U/L Troponin I (<0.03) ng/mL Total Protein (6.4-8.9) g/dL Albumin (3.2-5.2) g/dL Globulin (2-4) g/dL Albumin/Globulin Ratio (1-3) TSH 7.19 H (0.34-5.60) mcIU/mL Beta HCG, Quant < 0.60 mIU/mL Salicylates < 2.50 (<30) mg/dL Acetaminophen < 15 mcg/mL Serum Alcohol < 10 (<10) mg/dL Result Diagrams: 06/10/19 02:33 06/10/19 02:33 Lab Statement: Any lab studies that have been ordered have been reviewed, and results considered in the medical decision making process. Re-Evaluation - Re-Evaluation First Eval Re-Evaluation Time: 04:55 Comment: Patient was medically cleared for MHE, ged tutor at bedside. Course/Dx - Course Course Of Treatment: 28 year old female presents by ambulance iwht anxiety attack. no SI. workup negative. seen by mental health, discharged to home. follow up for any concerns. - Differential Dx/Clinical Impression Provider Diagnosis: Anxiety - Physician Notifications Discussed Care Of Patient With: Roman Wright Time Discussed With Above Provider: 06:16 Instructed by Provider To: Other - Patient's case was reviewed by Dr. Wright, patient will be discharged to home. Discharge ED - Sign-Out/Discharge Documenting (check all that apply): Patient Departure - discharge - Discharge Plan Condition: Stable Disposition: HOME Referrals: Charlie Orozco MD [Primary Care Provider] - - Billing Disposition and Condition Condition: STABLE Disposition: Home - Attestation Statements Document Initiated by Scribe: Yes Documenting Scribe: AURORA CROW Provider For Whom Timoteo is Documenting (Include Credential): MAILE LUNDBERG MD Scribe Attestation: AURORA Siddiqui, scribed for MAILE LUNDBERG MD on 06/10/19 at 0639. Scribe Documentation Reviewed: Yes Provider Attestation: The documentation as recorded by the AURORA skinner accurately reflects the service I personally performed and the decisions made by MAILE cali MD Status of Scribe Document: Viewed
[2019-06-10 07:19] VITALS: BP 112/75
== END 2019-06-10 07:19 | disposition home or self-care (01) ==
LOC: ED 02:07
DX: F41.9 Anxiety disorder, unspecified (principal); E03.9 Hypothyroidism, unspecified; J45.909 Unspecified asthma, uncomplicated; F31.9 Bipolar disorder, unspecified; Z87.891 Personal history of nicotine dependence; Z88.1 Allergy status to other antibiotic agents; Z88.5 Allergy status to narcotic agent; Z88.2 Allergy status to sulfonamides
CPT/HCPCS: 36415; 80053; 80320; 80329; 84443; 84484; 84702; 85025; 85610; 93005; 99285; G0480

== ENCOUNTER 2019-08-29 17:15 | Emergency (ER) | payer SELFPAY ==
--- OUTSIDE RECORDS SUMMARY | 2019-08-29 17:22 | XMS REPORT | Continuity of Care Document ---
:1990 Author Organization [facility] Address [address] [place] [address] Phone Care Team Providers Name Role Phone Will Unger PRESETTER OPERATOR, Jody Unavailable Unavailable Allergies, Adverse Reactions, Alerts Substance Reaction Status OXYCODONE HCL Active acetaminophen Active trimethoprim Active sulfamethoxazole Active Medications Medication Instructions Dosage Effective Dates Status Comments (start - stop) Metrogel Vaginal insert 1 37.5 MG - Active 0.75 % applicatorful by vaginal route every day at bedtime 1.5/30 take 1 tablet by oral 1.00 tablet - Active (28) 1.5 mg-30 mcg route every day (21)/75 mg (7) tablet QUETIAPINE Not Available - Active FUMARATE (unknown strength) SYNTHROID (unknown Not Available - Active strength) Problems Condition Effective Dates (start - Clinical Status Comments stop) Encounter for oth general cnsl and advice on contraception Irregular menstruation, unspecified Encntr screen for infections w sexl mode of transmiss Acute vaginitis Noninflammatory disorder of vagina, unspecified Encounter for screening for oth infec/parastc diseases Encounter for oth general cnsl - and advice on contraception Encounter for initial prescription of contraceptive pills Other ovarian cyst, left side Procedures Procedure Date OFFICE/OUTPATIENT VISIT, EST WET SMEAR ASSAY OF BODY FLUID-PH OTHER Medical Services VAGINITIS RX Contraceptive Group Insurance Specialist.Svc. Other Group Insurance Specialist.Svc. STI CHYLMD DNA, AMP PROBE N.GONORRHOEAE, DNA, AMP PROB TRICHOMONAS VAGIN, DIR PROBE Results Test Name Date and Time Measure Units Reference Range Abnormal Flag Status Comments Panel Description: Wet Mount Final Wet Mount 15:00:20 Hyphae/Ernestina: noBudding yeast: Final noTrich: noClue cells: yes (>=20%)WBCs: yes (few)Amine/Whiff test: positivepH: 5.0 Advance Directives Directive Yes / No Effective Date File Name No information Encounters Encounter Practice Location Reason(s) For Diagnoses Date Provider Providers Description Visit Copied on Encounter OFFICE/OUTPA [facility] Encounter for [place] Referring TIENT VISIT, [facility] [place] [facility]: EST [facility] [place] (chief and advice on 0 [address]. Sue[place], complaint)Vag contraceptionIrr [address] [place], [place], [place] Discharge a/o menstruation, St, [address] [place], [place], Od[place] (chief unspecifiedEncnt [place], [address], [id number], complaint) [place] screen for [place], [place], [place] [address]. [place], [address]. tel:[phone] sexl mode of tel:[phone] tel:[phone] transmissAcute [id number] vaginitisNoninfl ammatory disorder of vagina, unspecifiedEncou nter for screening for oth infec/parastc diseases [facility] Encounter for [place] Referring [facility] [place] ot general cnsl [address]. Provider: Of Greater and advice on [address] [place], contraceptionEnc [place], [address], [address], [place] initial [place], St, [place], [place], prescription of [place], [place], [phone], contraceptive [id number], [place], [address]. [place] pillsOther [place]. tel:[phone] ovarian cyst, [phone] left side Family History Family Member Diagnosis Age At Onset 1st degree relative No hx of venous thromboembolism 1st degree relative No hx of coronary heart disease (female <65, male <55) Mother Cancer, ovarian 35 Immunizations Vaccine Date Status Comments No information Payers Payer name Insurance type Covered libertarian ID Authorization(s) Vishnu Garrido [facility] CI [id number] Social History Type Description Quantity Date Captured Comments Alcohol Use Details Unknown Caffeine Use Details Unknown Tobacco Use Status Current non-smoker Smoking Status Never smoker Non-Smoking Tobacco : No Details Available : No Details Available 2019 Use Details Sex Female Vital Signs Date / Height Weight BMI Pulse Blood Temperature Respiratory Body Head BMI Pulse Inhaled Time: Rate Pressure Rate Surface Circumference percentile Ox Ox Area No information Chief Complaint And Reason For Visit Most recent encounter only, dated 07/26/2019 14:30'. Breakthrough Bleeding on BCM (chief complaint)Vaginal Discharge a/o Odor (chief complaint) Reason For Referral Reason For Referral No [...] oth general cnsl and advice on contraception 2019 assessment Irregular menstruation, unspecified assessment Encntr screen for infections w sexl mode of transmiss assessment Acute vaginitis assessment Noninflammatory disorder of vagina, unspecified assessment Encounter for screening for oth infec/parastc diseases Goals Health Concern Goal Type Priority Status Date No information Medical Equipment Description Device [place] Device Identifier Effective Dates (start - stop ) Status No information Mental Status Date Cognitive Assessment No information Health Concerns Observation Date No information Concern Status Date No information
--- OUTSIDE RECORDS SUMMARY | 2019-08-29 17:22 | XMS REPORT | Continuity of Care Document ---
:1990 Author Organization [facility] Address [address] [place] [address] Phone Care Team Providers Name Role Phone [...] Description For Visit Copied on Encounter [facility] [place] [facility]. Of Greater 0 [address], [place] [address], [place], [place], [place], [id number], [address], [place]. tel:[phone] [facility] Encounter for oth [place] Referring Parenthood [facility] and [facility] Provider: Of Greater advice on 0 [place]. [place], contraceptionIrregu [address] menstruation, [place], St, New [address], [address] [place], [place], screen for [place], [address], [id number], infections [place], [place] [address]. [place], [address]. tel:[phone] transmissAcute tel: tel:[phone] vaginitisNoninflamm [phone] atory disorder of vagina, unspecifiedEncounte r for screening for oth infec/parastc diseases Planned [facility] Encounter for oth Mar- White Referring Parenthood [facility] and [place]. Provider: Of Greater advice on 9 [address] [place], contraceptionEncoun [place], [address] for initial [address], [address] [place] [address], New prescription of [place], St, [place], [place], [place], [place], [id number], pillsOther [place] [address], [place], [address]. [place] cyst, left side [place]. tel:[phone] Family History Family Member Diagnosis Age At Onset 1st degree relative No hx of venous thromboembolism 1st degree relative No hx of coronary heart disease (female <65, male <55) Mother Cancer, ovarian 35 Immunizations Vaccine Date Status Comments No information Payers Payer name Insurance type Covered constitution party ID Authorization(s) Vishnu KEENE [facility] CI [id number] Social History Type Description Quantity Date Captured [...] Date No information Medical Equipment Description Device Marcella Device Identifier Effective Dates (start - stop ) Status No information Mental Status Date Cognitive Assessment No information Health Concerns Observation Date No information Concern Status Date No information
--- OUTSIDE RECORDS SUMMARY | 2019-08-29 17:22 | XMS REPORT | Continuity of Care Document ---
:1990 External Reference #:[id number] Author Name Blas Gayle N.P. Address [address] [place] [address] [address] [place] [address] Problems Description No Information Available Social History [...] every evening Seroquel 1 tab by mouth 60tabs F31.81 Charlie Orozco, 01/09/2019 25mg Tablets bid M.D. Ondansetron HCL take one tablet 60tabs [...] Unknown 500mg Tablets Metronidazole Unknown 500mg Tablets Immunizations Description No Information Available Vital Signs [...] Test Result H/L Range Note Laboratory test 06/10/2019 [facility] Troponin-I 0.00 ng/mL <0.03 1 finding (TnI) Laboratory test 06/10/2019 [facility] Alcohol < 10 mg/dL Normal <10 finding Salicylate < 2.50 mg/dL <30 HCG < 0.60 mIU/mL 2 Acetaminophen < 15 g/mL 3 TSH (Thyroid Stim Horm) 7.19 mcIU/mL High 0.34-5.60 CBC Auto Diff 06/10/2019 [facility] White Blood 4.2 10^3/uL Normal 3.5-10.8 Count Red Blood Count 4.31 10^6/uL Normal 3.70-4.87 Hemoglobin 10.9 g/dL Low 12.0-16.0 Hematocrit 33 % Low 35-47 Mean Corpuscular Volume 77 fL Low 80-97 Mean Corpuscular Hemoglobin 25 pg Low 27-31 Mean Corpuscular HGB Conc 33 g/dL Normal 31-36 Red Cell Distribution Width 15 % Normal 10-15 Platelet Count 184 10^3/uL Normal 150-450 Mean Platelet Volume 8.8 fL Normal 7.4-10.4 Abs Neutrophils 1.9 10^3/uL Normal 1.5-7.7 Abs Lymphocytes 1.7 10^3/uL Normal 1.0-4.8 Abs Monocytes 0.4 10^3/uL Normal 0-0.8 Abs Eosinophils 0.1 10^3/uL Normal 0-0.6 Abs Basophils 0.0 10^3/uL Normal 0-0.2 Abs Nucleated RBC 0.0 10^3/uL Granulocyte % 46.4 % Lymphocyte % 41.1 % Monocyte % 9.9 % Eosinophil % 1.5 % Basophil % 1.1 % Nucleated Red Blood Cells % 0.0 Inr/Protime 06/10/2019 [facility] Inr 0.97 Normal 0.82-1.09 4 Comp Metabolic Panel 06/10/2019 [facility] Sodium 139 mmol/L Normal 135-145 Potassium 3.4 mmol/L Low 3.5-5.0 Chloride 106 mmol/L Normal 101-111 Co2 Carbon Dioxide 27 mmol/L Normal 22-32 Anion Gap 6 mmol/L Normal 2-11 Calcium 9.2 mg/dL Normal 8.6-10.3 Albumin 4.1 g/dL Normal 3.2-5.2 Total Bilirubin 0.30 mg/dL Normal 0.2-1.0 Glucose 90 mg/dL Normal 70-100 Blood Urea Nitrogen 16 mg/dL Normal 6-24 Creatinine 0.71 mg/dL Normal 0.51-0.95 BUN/Creatinine Ratio 22.5 High 8-20 Total Protein 7.0 g/dL Normal 6.4-8.9 Globulin 2.9 g/dL Normal 2-4 Albumin/Globulin Ratio 1.4 Normal 1-3 Alkaline Phosphatase 53 U/L Normal 34-104 Alt 14 U/L Normal 7-52 Ast 20 U/L Normal 13-39 Egfr Non- 98.0 >60 Egfr 118.6 >60 5 Laboratory test 06/10/2019 [facility] Troponin-I (TnI) 0.00 ng/mL < 0.03 6 finding Poc Urinalysis 05/24/2019 [facility] Poc Glucose, Negative Negative Urine Poc Bilirubin, Urine Negative Negative Poc Ketone, Urine Negative Negative Poc Specific [place], Urine 1.025 Normal 1.010-1.030 Poc Blood, Urine 3+ Abnormal Negative Poc pH, Urine 6.5 Normal 5-9 Poc Protein, Urine Negative Negative Poc Urobilinogen, Urine 1.0 Negative Poc Nitrite, Urine Negative Negative Poc Leukocytes, Urine Negative Negative Poc Color, Urine Yellow Poc Clarity, Urine Clear 7 Laboratory test 05/24/2019 [facility] Poc , Negative Negative 8 finding Urine Laboratory test 05/24/2019 [facility] HCG < 0.60 mIU/mL 9 finding O P: 02/17/2019 [facility] O P: SEE RESULT 10 Giardia/Cryptospo Giardia/Cryptosp BELOW r Screen or Screen Laboratory test 02/17/2019 [facility] Stool Culture SEE RESULT 11 finding BELOW C Difficile PCR SEE RESULT BELOW 12 Ova & Parasites 02/17/2019 [facility] Parasitic Exam, See Comment 13 Full Result CBC Auto Diff 02/17/2019 [facility] White Blood 3.6 10^3/uL Normal 3.5-10 Count .8 Red Blood Count 4.41 10^6/uL Normal 3.70-4.87 [...] % Nucleated Red Blood Cells % 0.1 Laboratory test 02/17/2019 [facility] Lactic Acid 0.5 mmol/L Normal 0.5-2.0 14 finding Urinalysis Profile 02/17/2019 [facility] Urine Color Yellow Urine Appearance Cloudy Urine Specific [place] 1.019 Normal 1.010-1.030 Urine pH 7.0 Normal 5-9 Urine Urobilinogen Negative Negative Urine Ketones Negative Negative Urine Protein Negative Negative Urine Leukocytes Negative Negative Urine Blood Negative Negative Urine Nitrite Negative Negative Urine Bilirubin Negative Negative Urine Glucose Negative Negative Comp Metabolic Panel 02/17/2019 [facility] Sodium 140 mmol/L Normal 135-145 Potassium 3.3 [...] Egfr Non- 116.8 >60 Egfr 141.3 >60 15 Laboratory test finding 02/17/2019 [facility] Lipase 16 U/L Normal 11.0-82.0 C Reactive Protein 18.33 mg/L High <8.01 1 Troponin-I testing on Plasma Separator Tubes (PST) has a known false positive rate of 0.20-0.40%. All positive troponins reflex immediately to secondary confirmatory testing. Using the [employer] DxI 800 Access Immunoassay systems, the 99th percentile upper reference limit was demonstrated to be < 0.03 ng/mL. 2 <5.0 Negative 5.0 - 25.0 Indeterminate (Repeat testing recommended after 72 hours) >25.0 Positive Perimenopausal women can display HCG levels of up to 20 mIU/mL 3 Therapeutic concentration: <50 ug/mL Toxic concentration: >120 ug/mL 4 Standard intensity warfarin therapeutic range: 2.0-3.0 High intensity warfarin therapeutic range: 2.5-3.5 5 Because ethnic data is not always readily [...] 15-29 5 Kidney failure <15 (or dialysis) 6 Troponin-I testing on Plasma Separator Tubes (PST) has a known false positive rate of 0.20-0.40%. All positive troponins reflex immediately to secondary confirmatory testing. Using the [employer] DxI 800 Access Immunoassay systems, the 99th percentile upper reference limit was demonstrated to be < 0.03 ng/mL. 7 Irrigation Equipment Installer: [id number] Irrigation Equipment Installer: [id number] Test Disclaimer: Positive bacteria, red blood cells, white blood cells, early , low specific gravity, and other factors may cause false positive or negative results. It is recommended to retest unexpected and borderline results with a serum test when applicable. If is still suspected, please repeat test after 48 to 72 hours. 9 <5.0 Negative 5.0 - 25.0 Indeterminate (Repeat testing recommended after 72 hours) >25.0 Positive Perimenopausal women can display HCG levels of up to 20 mIU/mL 10 SEE RESULT BELOW Name: JOYCE MEJÍA I : [address]: Aron Anderson MD Acct: [id number] Unit: [id number] AGE: 28 Location: ED Re02/17/19 SEX: F Status: DEP ER SPEC: [id number] BERNIE: 02/17/19-[address] DR: Aron Anderson MD REQ: [id number] RECD: 02/17/19 STATUS: [facility] DR: Charlie Orozco MD _ SOURCE: STOOL [facility]: ORDERED: O P: Giar/Crypt Procedure Result Reported Site O P: Giardia/Cryptospor Screen Final 02/20/19- 1453 ML Organism 1 Neg Cryptosporidium/Giardia Giardia and [...] the test and are not recommended. * - [facility] . END OF REPORT DEPARTMENT OF PATHOLOGY, [address] [place] [address] Shemar Coyle M.D. Director [facility]QUITA # [id number] 11 SEE RESULT BELOW Name: JOYCE MEJÍA I : [address]: Aron Anderson MD Acct: [id number] Unit: [id number] AGE: 28 Location: ED Re02/17/19 SEX: F Status: DEP ER SPEC: [id number] BERNIE: 02/17/19 [facility] [place] DR: Aron Anderson MD REQ: [id number] RECD: 02/17/19 STATUS: VIVIANA JOSHUA DR: Charlie [...] Shiga Toxin 1 2 Immunochromatographic Assay * ML - Main Lab . END OF REPORT DEPARTMENT OF PATHOLOGY, [address] [place] [address] Shemar Coyle M.D. Director [facility] # [id number] 12 SEE RESULT BELOW Name: JOYCE MEJÍA I : [address]: Aron Anderson MD Acct: [id number] Unit: [id number] AGE: 28 Location: ED Re02/17/19 SEX: F Status: DEP ER SPEC: [id number] BERNIE: 02/17/[address]: Aron Anderson MD REQ: [id number] RECD: 02/17/19 STATUS: VIVIANA JOSHUA DR: Charlie Orozco MD _ SOURCE: STOOL SPDESC: ORDERED: C. diff PCR COMMENTS: Verbal to [id number] by [email or web address] at 1514 on 02/17/19. Results read back accurately. Procedure Result Reported Site Stool Specimen Description Final 02/18/19- 0706 ML Stool Color Brown Stool Form Nonformed Stool Consistency Liquid C. difficile PCR Final 02/17/19- 1514 ML Organism 1 027 Presumptive NEGATIVE Organism 2 Toxigenic C.diff POSITIVE * ML - Main Lab . END OF REPORT DEPARTMENT OF PATHOLOGY, [address] [place] [address] Shemar Coyle M.D. Director [facility] # [id number] 13 SOURCE: STOOL PARASITIC EXAMINATION FINAL No parasites seen. Leukocytes, moderate. Cryptosporidium, Cyclospora, and microsporidia are not readily detected by this method. Single negative specimen does not rule out parasitic infection. Test Performed by: [facility] [address] 14 [facility] Severe Sepsis and Septic Shock Management Bundle Measure requires all lactic acids initially measuring >2.0 mmol/L be repeated. 15 Because ethnic data is not always readily [...] 15-29 5 Kidney failure <15 (or dialysis) Procedures Description No Information Available Medical Devices Description No Information Available Encounters Type Date Location Provider Dx Diagnosis Office Visit 08/16/2019 [facility] Blas Gayle, E03.9 Hypothyroidism, 2:00p N.P. unspecified I10 Essential (primary) hypertension N39.46 [...] Secondary amenorrhea K52.3 Indeterminate colitis Office Visit 06/07/2019 11:15a [facility] Blas Gayle, E03.9 Hypothyroidism, N.P. unspecified [...] K52.3 Indeterminate colitis Office Visit 02/24/2019 9:30a [facility] Blas Gayle, E03.9 Hypothyroidism, N.P. unspecified [...] pain N91.1 Secondary amenorrhea K52.3 Indeterminate colitis Assessments Date Code Description Provider 08/16/2019 E03.9 Hypothyroidism, unspecified Blas Gayle, N.P. 08/16/2019 I10 Essential (primary) hypertension Blas Gayle, N.P. 08/16/2019 N39.46 Mixed incontinence Blas Gayle, N.P. 08/16/2019 N20.9 Urinary calculus, unspecified Blas Gayle, N.P. 08/16/2019 K64.9 Unspecified hemorrhoids Blas Gayle N.P. 08/16/2019 L20.9 Atopic dermatitis, unspecified Blas Gayle, N.P. 08/16/2019 J30.9 Allergic rhinitis, unspecified Blas Gayle N.P. 08/16/2019 F41.9 Anxiety disorder, unspecified Blas Gayle, N.P. 08/16/2019 G47.00 Insomnia, unspecified Blas Gyale, N.P. 08/16/2019 F90.0 Attention-deficit hyperactivity disorder, Blas Gayle, N.P. predominantly inattentive type 08/16/2019 F31.81 Bipolar II disorder Blas Gayle, N.P. 08/16/2019 E55.9 Vitamin D deficiency, unspecified Blas Gayle, N.P. 08/16/2019 G43.119 Migraine with aura, intractable, without Blas Gayle, N.P. status migrainosus 08/16/2019 S02.82xD Fracture of other specified skull and facial Blas Gayle, N.P. bones, left side, subsequent encounter for fracture with routine healing 08/16/2019 F07.81 Postconcussional syndrome Blas Gayle N.P. 08/16/2019 N83.202 Unspecified ovarian cyst, left side Blas Gayle N.P. 08/16/2019 R10.31 Right lower quadrant pain Blas Gayle N.P. 08/16/2019 N91.1 Secondary amenorrhea Blas Gayle N.P. 08/16/2019 K52.3 Indeterminate colitis Blas Gayle N.P. 06/07/2019 E03.9 Hypothyroidism, unspecified Blas Gayle, N.P. 06/07/2019 I10 Essential (primary) hypertension Blas Gayle N.P. 06/07/2019 N39.46 Mixed incontinence Blas Gayle N.P. 06/07/2019 N20.9 Urinary calculus, unspecified Blas Gayle N.P. 06/07/2019 K64.9 Unspecified hemorrhoids Blas Gayle N.P. 06/07/2019 L20.9 Atopic dermatitis, unspecified Blas Gayle N.P. 06/07/2019 J30.9 Allergic rhinitis, unspecified Blas Gayle N.P. 06/07/2019 F41.9 Anxiety disorder, unspecified Blas Gayle N.P. 06/07/2019 G47.00 Insomnia, unspecified Blas Gayle N.P. 06/07/2019 F90.0 Attention-deficit hyperactivity disorder, Blas Gayle N.PJabier predominantly inattentive type 06/07/2019 F31.81 Bipolar II disorder Blas Gayle N.P. 06/07/2019 E55.9 Vitamin D deficiency, unspecified Blas Gayle N.PJabier 06/07/2019 G43.119 Migraine with aura, intractable, without Blas Gayle N.PJabier status migrainosus 06/07/2019 S02.82xD Fracture of other specified skull and facial Allyson Scruggs.Ravin bones, left side, subsequent encounter for fracture with routine healing 06/07/2019 F07.81 Postconcussional syndrome Blas Gayle N.P. 06/07/2019 N83.202 Unspecified ovarian cyst, left side Blas Gayle N.PJabier 06/07/2019 R10.31 Right lower quadrant pain Blas Gayle N.PJabier 06/07/2019 N91.1 Secondary amenorrhea Blas Gayle N.PJabier 06/07/2019 K52.3 Indeterminate colitis Blas Gayle N.P. 02/24/2019 E03.9 Hypothyroidism, unspecified Blas Gayle N.P. 02/24/2019 I10 Essential (primary) hypertension Blas Gayle N.P. 02/24/2019 N39.46 Mixed incontinence Blas Gayle N.P. 02/24/2019 N20.9 Urinary calculus, unspecified Blas Gayle N.P. 02/24/2019 K64.9 Unspecified hemorrhoids Blas Gayle N.PJabier 02/24/2019 L20.9 Atopic dermatitis, unspecified Aylin ScruggsPJabier 02/24/2019 J30.9 Allergic rhinitis, unspecified Aylin ScruggsPJabier 02/24/2019 F41.9 Anxiety disorder, unspecified Allyson Scruggs.PJabier 02/24/2019 G47.00 Insomnia, unspecified Allyson Scruggs.PJabier 02/24/2019 F90.0 Attention-deficit hyperactivity disorder, Blas Gayle N.P. predominantly inat 02/24/2019 F31.81 Bipolar II disorder Aylin ScruggsPJabier 02/24/2019 E55.9 Vitamin D deficiency, unspecified Allyson Scruggs.PJabier 02/24/2019 G43.119 Migraine with aura, intractable, without Allyson Scruggs.Ravin status migrainosus 02/24/2019 S02.82xD Fracture of other specified skull and facial Blas Gayle N.P. bones, left heide 02/24/2019 F07.81 Postconcussional syndrome Aylin ScruggsPJabier 02/24/2019 N83.202 Unspecified ovarian cyst, left side Aylin ScruggsPJabier 02/24/2019 R10.31 Right lower quadrant pain Allyson Scruggs.PJabier 02/24/2019 N91.1 Secondary amenorrhea Blas Gayle N.P. 02/24/2019 K52.3 Indeterminate colitis Blas Gayle N.P. Plan of Treatment 08/16/2019 - Blas Gayle N.P.E03.9 Hypothyroidism, unspecifiedNew Xrays: Ultrasound, Thyroid & Neck & Soft Tissues Of Head, Ordered: Comments:RX REVIEWED AND UPDATEDF/U TSH/ FT4I10 Essential (primary) hypertensionComments:CHECK BP TIW ( PRN)DIET AND FLUID COUNSELING LOW SODIUM DIETWT LOSSF/U LABN39.46 Mixed incontinenceComments:COUNCELED SKIN CARE INSTRUCTIONSUSE DIAPER PRNN20.9 Urinary calculus, unspecifiedComments:INCREASE PO FLUID > 2 L PER DAYDIET INSTRUCTION REVIEWED F/U WITH UROLOGY PRNK64.9 Unspecified hemorrhoidsComments:AVOID CONSTIPATOIN INCREASE FIBER IN DIETLAXATIVE PRNLUBRICATE ANAL AREA WITH LOTION PRN FOR KCJDNSVI55.9 Atopic dermatitis, unspecifiedComments:SKIN CARE INSTRUCTIONS EUCERIN CREAM OR BABY OIL 2-3 APPLICATION PER DAYUSE MOISTURIZING SOAPAVOID PROLONGED WATER EXPOSUREAVOID USING HOT WATER IN MKHCBUQ04.9 Allergic rhinitis, unspecifiedComments:INCREASE PO FLUID USE ANTIHISTAMINE PRN SECOND HAND SMOKING XEVTVQNCJH78.9 Anxiety disorder, unspecifiedComments:COUNCELLING AND REASSURANCE RELAXATION TECHNIQUESSTRESSORS IN LIFE AVOID ALL ENERGY/HIGH CAFFEINE FFCLINZ51.00 Insomnia, pjfhcxkjbweC68.0 Attention-deficit hyperactivity disorder, predominantly inattentive typeComments:COUNCELLING AND REASSURANCEF/U DIRECTTEACHING ON TIME MANGEMENT AND IMPROVING ORGANIZATIONAL GAIGSEI14.81 Bipolar II disorderComments:COUNCELLING AND REASSURANCE RELAXATION TECHNIQUES DISCUSSED COUNSELED RE: STRESSORS IN LIFEE55.9 Vitamin D deficiency, unspecifiedComments:INCREASE EXPOSURE TO SUNREVIEW OF DIETG43.119 Migraine with aura, intractable, without status migrainosusComments:COUNCELLING AND REASSURANCE F/U WITH NEUROLOGY PRNS02.82xD Fracture of other specified skull and facial bones, left side, subsequent encounter for fracture with routine healingComments:PUWMKRDH33.81 Postconcussional syndromeComments:RESOLVEDOBSERVE FOR NOWN83.202 Unspecified ovarian cyst, left sideComments:OBSERVEF/U WITH GYNR10.31 Right lower quadrant painComments:TYLENOL OR MOTRIN PRNINCREASE PO FLUIDF/U LEBFUVDPO45.1 Secondary amenorrheaComments:OBSERVEF/U WITH OB/ GYNK52.3 Indeterminate colitisComments:INCREASE PO FLUID DIET REVIEW WILLIAM DIET PRNIMMODIUM PRN F/U WITH GI Functional Status Description No Information Available Mental Status Description No Information Available Referrals Description No Information Available
--- OUTSIDE RECORDS SUMMARY | 2019-08-29 17:22 | XMS REPORT | Continuity of Care Document ---
:1990 Author Organization [facility] Address [address] [place] [address] Phone Care Team Providers Name Role Phone [...] Copied on Encounter [facility] [place] 3 [place]. Of Greater 0 [address] [place], [place] [address], [facility], [place], [place], [id number], [address], [place]. tel:[phone] [facility] Encounter for ot White Referring Parenthood [facility] and [place]. Provider: Of [facility] advice on 9 [address] [place], contraceptionEncoun Odilon White, [address] for [address], [address], New prescription of [place], St, [place], [place], [place], [place], [id number], pillsOther [place] [address], [place], [address]. [place] cyst, left side [place]. tel:[phone] Family History Family Member Diagnosis Age At Onset 1st degree relative No hx of venous thromboembolism 1st degree relative No hx of coronary heart disease (female <65, male <55) Mother Cancer, ovarian 35 Immunizations Vaccine Date Status Comments No information Payers Payer name Insurance type Covered democrat ID Authorization(s) Vishnu KEENE [facility] CI [id number] Social History Type Description Quantity Date Captured [...] Plan Of Treatment Date Type Action Status Appointment JOYCE GARCIA BOOKED History Of Present Illness Encounter Date Complaint History Of Present Illness No information Functional Status Date Functional Assessment No information Medications Administered Medication Instructions Dosage Effective Dates (start - stop) Status Comments No information Instructions Date Instruction Additional Information No information Assessments Type Assessment Date No information Goals Health Concern Goal Type Priority Status Date No information Medical Equipment Description Device Dinuba Device Identifier Effective Dates (start - stop ) Status No information Mental Status Date Cognitive Assessment No information Health Concerns Observation Date No information Concern Status Date No information
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
[2019-08-29] MEDS ORDERED: Naproxen TAB* 250 MG PO ONE (19:15)
[2019-08-29 19:46] VITALS: BP 138/88
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
== END 2019-08-29 21:45 | disposition home or self-care (01) ==
LOC: UCEAST 17:15
DX: S09.90XA Unspecified injury of head, initial encounter (principal); S16.1XXA Strain of muscle, fascia and tendon at neck level, initial encounter; S49.92XA Unspecified injury of left shoulder and upper arm, initial encounter; S20.219A Contusion of unspecified front wall of thorax, initial encounter; S01.01XA Laceration without foreign body of scalp, initial encounter; S99.921A Unspecified injury of right foot, initial encounter; R07.9 Chest pain, unspecified; R51 Headache; M54.2 Cervicalgia; M79.652 Pain in left thigh; Z88.2 Allergy status to sulfonamides; Z88.5 Allergy status to narcotic agent; Z87.891 Personal history of nicotine dependence; V89.2XXA Person injured in unspecified motor-vehicle accident, traffic, initial encounter; Y92.9 Unspecified place or not applicable
CPT/HCPCS: 12001; 70450; 71046; 72125; 84702; 99212; 99213; A9270-GY; G0463

== ENCOUNTER 2019-08-31 11:06 | Emergency (ER) | payer OTHER ==
[2019-08-31] MEDS ORDERED: traMADol TAB* 50 MG PO ONE (12:30)
[2019-08-31] MEDS ORDERED: Lidocaine PATCH 5%* 1 PATCH TRANSDERM ONE (12:30)
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
[2019-08-31 12:49] LABS: Hematocrit 35 % (35-47); Hemoglobin 11.5 g/dL (12.0-16.0); Mean Corpuscular HGB Conc 33 g/dL (31-36); Mean Corpuscular Hemoglobin 26 pg (27-31); Mean Corpuscular Volume 78 fL (80-97); Mean Platelet Volume 8.6 fL (7.4-10.4); Platelet Count 186 10^3/uL (150-450); Red Blood Count 4.48 10^6 /uL (3.70-4.87); Red Cell Distribution Width 16 % (10-15); White Blood Count 4.4 10^3/uL (3.5-10.8)
[2019-08-31 13:08] LABS: Albumin 4.6 g/dL (3.2-5.2); Albumin/Globulin Ratio 1.6 (1-3); BUN/Creatinine Ratio 26.2 (8-20); Calcium 9.1 mg/dL (8.6-10.3); EGFR African American 131.3 (>60); EGFR Non-African American 108.5 (>60); Globulin 2.9 g/dL (2-4); Potassium 3.8 mmol/L (3.5-5.0); Total Bilirubin 0.4 mg/dL (0.2-1.0); Total Protein 7.5 g/dL (6.4-8.9)
[2019-08-31] MEDS ORDERED: Iohexol 300* (CONTRAST) 10 ML SDV IV ONE (13:16)
[2019-08-31 14:44] VITALS: BP 128/82
[2019-08-31] MEDS ORDERED: Lidocaine Patch REMOVE* 1 NOTE MISC SCH (21:00)
== END 2019-08-31 14:43 | disposition home or self-care (01) ==
LOC: ED 11:06
DX: S70.02XA Contusion of left hip, initial encounter (principal); S30.1XXA Contusion of abdominal wall, initial encounter; S16.1XXA Strain of muscle, fascia and tendon at neck level, initial encounter; S06.0X0A Concussion without loss of consciousness, initial encounter; M54.2 Cervicalgia; E03.9 Hypothyroidism, unspecified; J45.909 Unspecified asthma, uncomplicated; Z88.2 Allergy status to sulfonamides; Z88.5 Allergy status to narcotic agent; Z87.891 Personal history of nicotine dependence; R51 Headache; V43.52XA Car driver injured in collision with other type car in traffic accident, initial encounter; Y92.410 Unspecified street and highway as the place of occurrence of the external cause
CPT/HCPCS: 36415; 74177; 80053; 85027; 99283; A9270-GY; Q9967

== ENCOUNTER 2019-11-11 13:38 | Emergency (ER) | payer OTHER ==
--- OUTSIDE RECORDS SUMMARY | 2019-11-11 13:44 | XMS REPORT | Continuity of Care Document ---
:1990 External Reference #:[id number] Author Name Charlie Orozco M.D. Address [address] [place] [address] Problems Description No Information Available Social History Type Date Description Comments Sex Unknown Allergies, Adverse Reactions, Alerts Description No Information Available Medications Active Medications SIG Qnty Indications Ordering Provider Date Naproxen 1 tab by mouth 60tabs S23.3xxD Charlie Orozco, 09/04/2019 500mg Tablets twice a day as M.D. needed History Medications Prednisone 3 tab by mouth 18tabs S23.3xxD Charlie Orozco 09/04/2019 - 20mg daily 3 days, M., M.D. 09/09/2019 Tablets then 2 tab daily x 3 d , then 1 tab daily 3d Immunizations Description No Information Available Vital Signs Description No Information Available Results Description No Information Available Procedures Description No Information Available Medical Devices Description No Information Available Encounters Type Date Location Provider Dx Diagnosis Office Visit 09/13/2019 [place] [facility] Charlie Orozco, S23.3xxD Sprain of ligaments 10:00a M.D. of thoracic spine, subsequent encounter S13.4xxD Sprain of ligaments of cervical spine, subsequent encounter R07.9 Chest pain, unspecified R10.84 Generalized abdominal pain M79.605 Pain in left leg D69.2 Other nonthrombocytopenic purpura R51 Headache R55 Syncope and collapse S01.01xD Laceration without foreign body of scalp, subs encntr Office Visit 09/04/2019 9:45a [facility] Charlie Orozco S23.3xxD Sprain of M., M.D. ligaments of thoracic spine, subsequent encounter S13.4xxD Sprain of ligaments of cervical spine, subsequent encounter R07.9 Chest pain, unspecified R10.84 Generalized abdominal pain M79.605 Pain in left leg D69.2 Other nonthrombocytopenic purpura R51 Headache R55 Syncope and collapse S01.01xD Laceration without foreign body of scalp, subs encntr Assessments Date Code Description Provider 09/13/2019 S23.3xxD Sprain of ligaments of thoracic spine, Charlie Orozco M.D. subsequent encounter 09/13/2019 S13.4xxD Sprain of ligaments of cervical spine, Charlie Orozco M.D. subsequent encounter 09/13/2019 R07.9 Chest pain, unspecified Charlie Orozco M.D. 09/13/2019 R10.84 Generalized abdominal pain Charlie Orozco M.D. 09/13/2019 M79.605 Pain in left leg Charlie Orozco M.D. 09/13/2019 D69.2 Other nonthrombocytopenic purpura Charlie Orozco M.D. 09/13/2019 R51 Headache Charlie Orozco M.D. 09/13/2019 R55 Syncope and collapse Charlie Orozco M.D. 09/13/2019 S01.01xD Laceration without foreign body of scalp, Charlie Orozco M.D. subsequent encounter 09/04/2019 S23.3xxD Sprain of ligaments of thoracic spine, Charlie Orozco M.D. subsequent encounter 09/04/2019 S13.4xxD Sprain of ligaments of cervical spine, Charlie Orozco M.D. subsequent encounter 09/04/2019 R07.9 Chest pain, unspecified Charlie Orozco M.D. 09/04/2019 R10.84 Generalized abdominal pain Charlie Orozco M.D. 09/04/2019 M79.605 Pain in left leg Charlie Orozco M.D. 09/04/2019 D69.2 Other nonthrombocytopenic purpura Charlie Orozco M.D. 09/04/2019 R51 Headache Chalrie Orozco M.D. 09/04/2019 R55 Syncope and collapse Charlie Orozco M.D. 09/04/2019 S01.01xD Laceration without foreign body of scalp, Charlie Orozco M.D. subsequent encounter Plan of Treatment Future Appointment(s):09/18/2019 9:30 am - Charlie Oroz[facility] M.D. at [facility]09/13/2019 - Charlie Orozco M.D.S23.3xxD Sprain of ligaments of thoracic spine, subsequent encounterComments:EXERCISE/HEAT /MESSAGEAVOID HEAVY LIFTING WT LOSSTYLENOL OR MOTRIN PRNFollow up:1 zpocqG94.4xxD Sprain of ligaments of cervical spine, subsequent encounterComments:TYLENO OR MOTRIN PRNEXERCISE /HEAT / MESSAGEWT. LOSSR07.9 Chest pain, unspecifiedComments: EXERCISE/HEAT/MESSAGE TYLENOL OR MOTRIN PRNHEAT PACKR10.84 Generalized abdominal painComments:TYLENOL OR MOTRIN PRNINCREASE PO OOSYZG29.605 Pain in left legComments:TYLENOL OR MOTRIN PRN EXERCISE/HEAT/UNZPZJNI18.2 Other nonthrombocytopenic purpuraComments:SKIN CARE INSTRUCTIONS LOTION OR BABY OIL 2 -3 APPLICATION PER DAYUSE MOISTURIZING SOAPR51 HeadacheComments:TYLENOL OR MOTRIN PRNR55 Syncope and collapseComments:[id number] Laceration without foreign body of scalp, subsequent encounterComments:RESOLVED Functional Status Description No Information Available Mental Status Description No Information Available Referrals Description No Information Available
--- OUTSIDE RECORDS SUMMARY | 2019-11-11 13:44 | XMS REPORT | Continuity of Care Document ---
:1990 External Reference #:[id number] Author Name Charlie Orozco M.D. Address [address] [place] [address] Problems Description No Information Available Social History [...] 24HR Senna-S 2 tab by mouth 120tabs Chalrie Orozco, 02/24/2019 8.6-50mg Tablets twice a day M.D. every evening Seroquel 1 tab by mouth 60tabs F31.81 Charlie Orozco, 01/09/2019 25mg Tablets bid M.D. Ondansetron HCL take one tablet 60tabs Charlie Orozco, 10/07/2018 4mg by mouth every 4 M.D. Tablets hours as needed (maximum daily dose =6) Levothyroxine Sodium take 1 tablet by 30tabs E03.9 Charlie Orozco, 2018 mouth once daily M.D. 125mcg Tablets in the morning Ibuprofen take one tablet 90tabs G43.119 Charlie Orozco, 09/02/2018 600mg Tablets by mouth three M.D. times daily with food prn Migraine Aura Immunizations Description No Information Available Vital Signs Date Vital Result Comment 09/13/2019 9:22am BP Systolic 112 mmHg BP Diastolic 64 mmHg Height 61 inches 5'1" Weight 124.00 lb BMI (Body Mass Index) 23.4 kg/m2 Heart Rate 71 /min Respiratory Rate 16 /min 09/04/2019 9:44am BP Systolic 122 mmHg BP Diastolic 66 mmHg Height 61 inches 5'1" Weight 120.00 lb BMI (Body Mass Index) 22.7 kg/m2 Heart Rate 83 /min Respiratory Rate 16 /min Results Test Acquired Date Facility Test Result H/L Range Note Laboratory test 09/13/2019 [facility] Sed Rate <pending> finding Liana BELTRAN ([phone] - T4 Free - Thyroxine <pending> TSH, Ultrasenstive <pending> CBC No Diff 08/31/2019 [facility] White Blood Count 4.4 10^3/uL Normal 3.5-10.8 Red Blood Count 4.48 10^6/uL Normal 3.70-4.87 Hemoglobin 11.5 g/dL Low 12.0-16.0 Hematocrit 35 % Normal 35-47 Mean Corpuscular Volume 78 fL Low 80-97 Mean Corpuscular Hemoglobin 26 pg Low 27-31 Mean Corpuscular HGB Conc 33 g/dL Normal 31-36 Red Cell Distribution Width 16 % High 10-15 Platelet Count 186 10^3/uL Normal 150-450 Mean Platelet Volume 8.6 fL Normal 7.4-10.4 Comp Metabolic Panel 08/31/2019 [facility] Sodium 137 mmol/L Normal 135-145 Potassium 3.8 mmol/L Normal 3.5-5.0 Chloride 106 mmol/L Normal 101-111 Co2 Carbon Dioxide 23 mmol/L Normal 22-32 Anion Gap 8 mmol/L Normal 2-11 Glucose 89 mg/dL Normal 70-100 Blood Urea Nitrogen 17 mg/dL Normal 6-24 Creatinine 0.65 mg/dL Normal 0.51-0.95 BUN/Creatinine Ratio 26.2 High 8-20 Calcium 9.1 mg/dL Normal 8.6-10.3 Total Protein 7.5 g/dL Normal 6.4-8.9 Albumin 4.6 g/dL Normal 3.2-5.2 Globulin 2.9 g/dL Normal 2-4 Albumin/Globulin Ratio 1.6 Normal 1-3 Total Bilirubin 0.40 mg/dL Normal 0.2-1.0 Alkaline Phosphatase 56 U/L Normal 34-104 Alt 17 U/L Normal 7-52 Ast 19 U/L Normal 13-39 Egfr Non- 108.5 >60 Egfr 131.3 >60 1 Laboratory test 08/29/2019 [facility] Poc , Negative Negative 2 finding Urine Laboratory test 06/10/2019 [facility] Troponin-I (TnI) 0.00 ng/mL < 0.03 3 finding Laboratory test 06/10/2019 [facility] Alcohol < 10 mg/dL Normal <10 finding Salicylate < 2.50 mg/dL <30 HCG < 0.60 mIU/mL 4 Acetaminophen < 15 g/mL 5 TSH (Thyroid Stim Horm) 7.19 mcIU/mL High 0.34-5.60 CBC Auto Diff 06/10/2019 [facility] White Blood 4.2 10^3/uL Normal 3.5-10.8 [...] Red Blood Cells % 0.0 Inr/Protime 06/10/2019 [facility] Inr 0.97 Normal 0.82-1.09 6 Comp Metabolic Panel 06/10/2019 [facility] Sodium 139 mmol/L Normal 135-145 Potassium [...] Egfr Non- 98.0 >60 Egfr 118.6 >60 7 Laboratory test 06/10/2019 [facility] Troponin-I (TnI) 0.00 ng/mL < 0.03 8 finding Laboratory test 05/24/2019 [facility] HCG < 0.60 mIU/mL 9 finding Laboratory test 05/24/2019 [facility] Poc , Negative Negative 10 finding Urine Poc Urinalysis 05/24/2019 [facility] Poc Glucose, Negative Negative Urine Poc Bilirubin, Urine Negative Negative Poc Ketone, Urine Negative Negative Poc Specific [place], Urine 1.025 Normal 1.010-1.030 Poc Blood, Urine 3+ Abnormal Negative Poc pH, Urine 6.5 Normal 5-9 Poc Protein, Urine Negative Negative Poc Urobilinogen, Urine 1.0 Negative Poc Nitrite, Urine Negative Negative Poc Leukocytes, Urine Negative Negative Poc Color, Urine Yellow Poc Clarity, Urine Clear 11 1 Because ethnic data is not always readily [...] 15-29 5 Kidney failure <15 (or dialysis) 2 R Developer: [id number] Test Disclaimer: Positive bacteria, red blood cells, white blood cells, early , low specific gravity, and other factors may cause false positive or negative results. It is recommended to retest unexpected and borderline results with a serum test when applicable. If is still suspected, please repeat test after 48 to 72 hours. 3 Troponin-I testing on Plasma Separator Tubes (PST) has a known false positive rate of 0.20-0.40%. All positive troponins reflex immediately to secondary confirmatory testing. Using the [employer] 800 Access Immunoassay systems, the 99th percentile upper reference limit was demonstrated to be < 0.03 ng/mL. 4 <5.0 Negative 5.0 - 25.0 Indeterminate (Repeat testing recommended after 72 hours) >25.0 Positive Perimenopausal women can display HCG levels of up to 20 mIU/mL 5 Therapeutic concentration: <50 ug/mL Toxic concentration: >120 ug/mL 6 Standard intensity warfarin therapeutic range: 2.0-3.0 High intensity warfarin therapeutic range: 2.5-3.5 7 Because ethnic data is not always readily [...] 15-29 5 Kidney failure <15 (or dialysis) 8 Troponin-I testing on Plasma Separator Tubes (PST) has a known false positive rate of 0.20-0.40%. All positive troponins reflex immediately to secondary confirmatory testing. Using the [employer] 800 Access Immunoassay systems, the 99th percentile upper reference limit was demonstrated to be < 0.03 ng/mL. 9 <5.0 Negative 5.0 - 25.0 Indeterminate (Repeat testing recommended after 72 hours) >25.0 Positive Perimenopausal women can display HCG levels of up to 20 mIU/mL 10 R Developer: [id number] Test Disclaimer: Positive bacteria, red blood cells, white blood cells, early , low specific gravity, and other factors may cause false positive or negative results. It is recommended to retest unexpected and borderline results with a serum test when applicable. If is still suspected, please repeat test after 48 to 72 hours. 11 R Developer: [id number] Procedures Description No Information Available Medical Devices Description No Information Available Encounters Type Date Location Provider Dx Diagnosis Office Visit 09/13/2019 [facility] Charlie Orozco E03.9 Hypothyroidism, 10:15a Alberto unspecified I10 Essential (primary) hypertension N39.46 Mixed [...] skull and facial bones, left side, 7thD N83.202 Unspecified ovarian cyst, left side F07.81 Postconcussional syndrome E04.0 Nontoxic diffuse goiter Z00.01 Encounter for general adult medical exam w abnormal findings Office Visit 09/04/2019 9:45a [facility] Charlie Orozco E03.9 Hypothyroidism, Alberto Rodríguez unspecified I10 Essential (primary) hypertension N39.46 Mixed [...] skull and facial bones, left side, 7thD N83.202 Unspecified ovarian cyst, left side F07.81 Postconcussional syndrome Office Visit 08/16/2019 2:00p [facility] Blas Gayle, E03.9 Hypothyroidism, N.P. unspecified [...] K52.3 Indeterminate colitis Office Visit 06/07/2019 11:15a [facility] Blas Gayle, E03.9 Hypothyroidism, N.P. unspecified [...] Indeterminate colitis Assessments Date Code Description Provider 09/13/2019 E03.9 Hypothyroidism, unspecified Charlie Orozco M.D. 09/13/2019 I10 Essential (primary) hypertension Charlie Orozco M.D. 09/13/2019 N39.46 Mixed incontinence Charlie Orozco M.D. 09/13/2019 N20.9 Urinary calculus, unspecified Charlie Orozco M.D. 09/13/2019 K59.00 Constipation, unspecified Charlie Orozco M.D. 09/13/2019 K64.9 Unspecified hemorrhoids Charlie Orozco M.D. 09/13/2019 L20.9 Atopic dermatitis, unspecified Charlie Orozco M.D. 09/13/2019 J30.9 Allergic rhinitis, unspecified Charlie Orozco M.D. 09/13/2019 F41.9 Anxiety disorder, unspecified Charlie Orozco M.D. 09/13/2019 G47.00 Insomnia, unspecified Charlie Orozco M.D. 09/13/2019 F90.0 Attention-deficit hyperactivity disorder, Charlie Orozco M.D. predominantly inattentive type 09/13/2019 F31.81 Bipolar II disorder Charlie Orozco M.D. 09/13/2019 E55.9 Vitamin D deficiency, unspecified Charlie Orozco M.D. 09/13/2019 G43.119 Migraine with aura, intractable, without Charlie Orozco M.D. status migrainosus 09/13/2019 S02.82xD Fracture of other specified skull and Charlie Orozco M.D. facial bones, left side, subsequent encounter for fracture with routine healing 09/13/2019 N83.202 Unspecified ovarian cyst, left side Charlie Orozco M.D. 09/13/2019 F07.81 Postconcussional syndrome Charlie Orozco M.D. 09/13/2019 E04.0 Nontoxic diffuse goiter Charlie Orozco M.D. 09/13/2019 Z00.01 Encounter for general adult medical Charlie Orozco M.D. examination with abnormal findings 09/04/2019 E03.9 Hypothyroidism, unspecified Charlie Orozco M.D. 09/04/2019 I10 Essential (primary) hypertension Charlie Orozco M.D. 09/04/2019 N39.46 Mixed incontinence Charlie Orozco M.D. 09/04/2019 N20.9 Urinary calculus, unspecified Charlie Orozco M.D. 09/04/2019 K59.00 Constipation, unspecified Charlie Orozco M.D. 09/04/2019 K64.9 Unspecified hemorrhoids Charlie Orozco M.D. 09/04/2019 L20.9 Atopic dermatitis, unspecified Charlie Orozco M.D. 09/04/2019 J30.9 Allergic rhinitis, unspecified Charlie Orozco M.D. 09/04/2019 F41.9 Anxiety disorder, unspecified Charlie Orozco M.D. 09/04/2019 G47.00 Insomnia, unspecified Charlie Orozco M.D. 09/04/2019 F90.0 Attention-deficit hyperactivity disorder, Charlie Orozco M.D. predominantly inattentive type 09/04/2019 F31.81 Bipolar II disorder Charlie Orozco M.D. 09/04/2019 E55.9 Vitamin D deficiency, unspecified Charlie Orozco M.D. 09/04/2019 G43.119 Migraine with aura, intractable, without ErnestoCharlie myers M.D. status migrainosus 09/04/2019 S02.82xD Fracture of other specified skull and Ernesto, Ahmad M., M.D. facial bones, left side, subsequent encounter for fracture with routine healing 09/04/2019 N83.202 Unspecified ovarian cyst, left side Charlie Orozco M.D. 09/04/2019 F07.81 Postconcussional syndrome Charlie Orozco M.D. 08/16/2019 E03.9 Hypothyroidism, unspecified Blas Gayle, N.P. 08/16/2019 I10 Essential (primary) hypertension Blas Gayle, N.P. 08/16/2019 N39.46 Mixed incontinence Blas Gayle, N.P. 08/16/2019 N20.9 Urinary calculus, unspecified Blas Gayle, N.P. 08/16/2019 K64.9 Unspecified hemorrhoids Blas Gayle, N.P. 08/16/2019 L20.9 Atopic dermatitis, unspecified Blas Gayle, N.P. 08/16/2019 J30.9 Allergic rhinitis, unspecified Blas Gayle, N.P. 08/16/2019 F41.9 Anxiety disorder, unspecified Blas Gayle, N.P. 08/16/2019 G47.00 Insomnia, unspecified Blas Gayle, N.P. 08/16/2019 F90.0 Attention-deficit hyperactivity disorder, Blas Gayle, N.P. predominantly inattentive type 08/16/2019 F31.81 Bipolar II disorder Blas Gayle, N.P. 08/16/2019 E55.9 Vitamin D deficiency, unspecified Blas Gayle, N.P. 08/16/2019 G43.119 Migraine with aura, intractable, without Blas Gayle, N.P. status migrainosus 08/16/2019 S02.82xD Fracture of other specified skull and Blas Gayle, N.P. facial bones, left side, subsequent encounter for fracture with routine healing 08/16/2019 F07.81 Postconcussional syndrome Blas Gayle, N.P. 08/16/2019 N83.202 Unspecified ovarian cyst, left side Blas Gayle, N.P. 08/16/2019 R10.31 Right lower quadrant pain Blas Gayle, N.P. 08/16/2019 N91.1 Secondary amenorrhea Blas Gayle, N.P. 08/16/2019 K52.3 Indeterminate colitis Blas Gayle N.P. 06/07/2019 E03.9 Hypothyroidism, unspecified Blas Gayle N.P. [...] Vitamin D deficiency, unspecified Blas Gayle N.P. 06/07/2019 G43.119 Migraine with aura, intractable, without Blas Gayle N.PJabier status migrainosus 06/07/2019 S02.82xD Fracture of other specified skull and Allyson Scruggs.Ravin facial bones, left side, subsequent encounter for fracture with routine healing 06/07/2019 F07.81 Postconcussional syndrome Blas Gayle N.P. 06/07/2019 N83.202 Unspecified ovarian cyst, left side Blas Gayle N.PJabier 06/07/2019 R10.31 Right lower quadrant pain Blas Gayle N.P. 06/07/2019 N91.1 Secondary amenorrhea Blas Gayle N.P. 06/07/2019 K52.3 Indeterminate colitis Blas Gayle N.Ravin Plan of Treatment 09/13/2019 - Charlie Orozco M.D.E03.9 Hypothyroidism, unspecifiedComments:RX REVIEWED AND UPDATEDF/U TSH/ FT4I10 Essential (primary) hypertensionComments: CHECK BP TIW ( PRN)DIET AND FLUID COUNSELING LOW SODIUM DIETWT LOSSF/U LABN39.46 Mixed incontinenceComments:COUNCELED SKIN CARE INSTRUCTIONSUSE DIAPER PRNN20.9 Urinary calculus, unspecifiedComments:INCREASE PO FLUID > 2 L PER DAYDIET INSTRUCTION REVIEWED F/U WITH UROLOGY PRNK59.00 Constipation, unspecifiedComments:MOM OR MIRALAX PRNHIGH FIBER DIETINCREASE PO VUIIAE94.9 Unspecified hemorrhoidsComments:AVOID CONSTIPATOIN INCREASE FIBER IN DIETLAXATIVE PRNLUBRICATE ANAL AREA WITH LOTION PRN FOR CETLSZDG15.9 Atopic dermatitis, unspecifiedComments:SKIN CARE INSTRUCTIONS EUCERIN CREAM OR BABY OIL 2-3 APPLICATION PER DAYUSE MOISTURIZING SOAPAVOID PROLONGED WATER EXPOSUREAVOID USING HOT WATER IN BXMFUWU98.9 Allergic rhinitis, unspecifiedComments:INCREASE PO FLUID USE ANTIHISTAMINE PRN SECOND HAND SMOKING KEFIGAKFRM80.9 Anxiety disorder, unspecifiedComments:COUNCELLING AND REASSURANCE RELAXATION TECHNIQUESSTRESSORS IN LIFE AVOID ALL ENERGY/HIGH CAFFEINE BMLBUIR13.00 Insomnia, exuliplrdnqR41.0 Attention-deficit hyperactivity disorder, predominantly inattentive typeComments:COUNCELLING AND REASSURANCEF/U DIRECTTEACHING ON TIME MANGEMENT AND IMPROVING ORGANIZATIONAL SKILLSDUR BQLNPWYB17.81 Bipolar II disorderComments:COUNCELLING AND REASSURANCE RELAXATION TECHNIQUES DISCUSSED COUNSELED RE: STRESSORS IN LIFEE55.9 Vitamin D deficiency, unspecifiedComments:INCREASE EXPOSURE TO SUNREVIEW OF DIETG43.119 Migraine with aura, intractable, without status migrainosusComments:COUNCELLING AND REASSURANCE F/U WITH NEUROLOGY PRNS02.82xD Fracture of other specified skull and facial bones, left side, subsequent encounter for fracture with routine healingComments:EWGWMDCC93.202 Unspecified ovarian cyst, left sideComments:OBSERVEF/U WITH GYNF07.81 Postconcussional syndromeComments: RESOLVEDOBSERVE FOR NOWE04.0 Nontoxic diffuse goiterNew Xrays:Thyroid Uptake And Scan, Ordered: 09/13/19Z00.01 Encounter for general adult medical examination with abnormal findingsComments:GOOD NUTRITION /EXERCISEDENTAL/ FLOSSING/ SELF CAREDROWNING/ SUN SAFETYSEAT BELT/ DRIVING SAFETYSPORT BIKE/ HELMET USESPORTS/ INJURY PREVENTIONVIOLENCE PREVENTION/ GUN SAFETYPARENTING ADVICE"SAFE AT HOME"SEX EDUCATION/ COUNSELINGBREAST/ TESTICULAR SELF EXAMEDUCATION GOALS/ ACTIVITIESLIMIT TV/ INTERNETUSETOBACCO/ ALCOHOL/ DRUGS/ INHALANTSPEER REFUSAL SKILLSSOCIAL INTERACTIONFAMILY FUNCTIONINGSELF CONTROLDEPRESSION/ ANXIETYNEXT APPOINTMENTYEARLY PHYSICAL WELLNESS EVALUATION F /U WITH OB /GLUE MAKER BONE FOR PAP Functional Status Description No Information Available Mental Status Description No Information Available Referrals Description No Information Available
--- OUTSIDE RECORDS SUMMARY | 2019-11-11 13:44 | XMS REPORT | Continuity of Care Document ---
:1990 External Reference #:[id number] Author Name Charlie Orozco M.D. (transmitted by agent of provider [employer]) Address [address] [address] Care Team Providers Name Role Phone Abilio Baer MD - Endocrinology, Care Team Information Biology Professor Diabetes & Metabolism Problems Description No Information Available Social History [...] morning Ibuprofen take one tablet 90tabs G43.119 ErnestoCharlie, 09/02/2018 600mg Tablets by mouth three M.D. [...] Result H/L Range Note CBC With Diff 09/13/2019 [facility] [place] WBC 5.8 10*3/uL (4.1-11.0) [address] (607)- - RBC 4.29 10*6/uL (4.00-5.40) HGB 10.6 g/dL Low (12.0-16.0) HCT 33.5 % Low (36.0-47.0) MCV 78.1 fL Low (80.0-95.0) MCH 24.8 pg Low (27.0-32.0) MCHC 31.7 g/dL Low (32.0-36.0) RDW 16.2 % High (10.5-14.5) PLT 277 10*3/uL (150-450) MPV 9.0 fL (7.1-10.7) Neut % 44.4 % (35.0-75.0) Lymph % 44.8 % (16.0-52.0) [place] % 8.3 % High (0.0-8.0) Eos % 2.2 % (0.0-5.0) Baso % 0.3 % (0.0-4.0) Neut # 2.6 10*3/uL (1.8-7.7) Lymph # 2.6 10*3/uL (1.2-4.8) [place] # 0.5 10*3/uL (0.0-0.8) Eos # 0.1 10*3/uL (0.0-0.5) Baso # 0.0 10*3/uL (0.0-0.2) CMP 09/13/2019 [facility] [place] Sodium 142 mmol/L (136-145) Liana BELTRAN (918)- - Potassium 3.6 mmol/L (3.6-5.2) Chloride 108 mmol/L (100-108) Co2 27 mmol/L (22-31) Anion Gap 7 mmol/L (7-16) Urea Nitrogen 18 mg/dL (7-24) Creatinine 0.71 mg/dL (0.60-1.00) BUN/Creat Ratio 25.4 RATIO High (10.0-20.0) Glucose 90 mg/dL (70-99) Calcium 8.4 mg/dL (8.4-10.2) Total Protein 6.6 g/dL (6.4-8.2) Albumin 3.9 g/dL (3.5-4.6) Globulin 2.7 g/dL (2.7-4.3) Alb/Glob Ratio 1.4 RATIO Alkaline Phosphatase 50 U/L (45-117) Bilirubin,Total 0.3 mg/dL (0.0-1.0) 1 Ast (Sgot) 12 U/L (11-39) Alt (SGPT) 28 U/L (12-78) GFR >60 ml/min/1.73m2 (>59) GFR ( Amer) >60 ml/min/1.73m2 (>59) GFR Interpretation <SEE NOTE> 2 Laboratory test finding 09/13/2019 [facility] [place] Esr 4 mm/h (0-20) Liana BELTRAN (862)- - Free Thyroxine @ 1.10 ng/dL (0.76-1.46) TSH,Ultrasensitive @ 22.500 mIU/L High (0.360-4.170) Thyroid Antibody 09/13/2019 [facility] [place] Thyroglobulin AB @ 36 IU/mL (< 40) And Peroxidase Liana BELTRAN (627)- - Thyr Peroxidase AB @ 22 IU/mL (<35) CBC No Diff 08/31/2019 [facility] White Blood Count 4.4 10^3/uL Normal [...] fL Normal 7.4-10.4 Comp Metabolic Panel 08/31/2019 [facility] Sodium 137 mmol/L Normal 135-145 Potassium [...] Egfr Non- 108.5 >60 Egfr 131.3 >60 3 Laboratory test 08/29/2019 [facility] Poc , Negative Negative 4 finding Urine Laboratory test 06/10/2019 [facility] Troponin-I (TnI) 0.00 ng/mL < 0.03 5 finding Laboratory test 06/10/2019 [facility] Alcohol < 10 mg/dL Normal <10 finding Salicylate < 2.50 mg/dL <30 HCG < 0.60 mIU/mL 6 Acetaminophen < 15 g/mL 7 TSH (Thyroid Stim Horm) 7.19 mcIU/mL High 0.34-5.60 CBC Auto Diff 06/10/2019 [facility] White Blood 4.2 10^3/uL Normal 3.5-10.8 [...] Red Blood Cells % 0.0 Inr/Protime 06/10/2019 [facility] Inr 0.97 Normal 0.82-1.09 8 Comp Metabolic Panel 06/10/2019 [facility] Sodium 139 mmol/L Normal 135-145 Potassium [...] Egfr Non- 98.0 >60 Egfr 118.6 >60 9 Laboratory test 06/10/2019 [facility] Troponin-I (TnI) 0.00 ng/mL < 0.03 10 finding Laboratory test 05/24/2019 [facility] HCG < 0.60 mIU/mL 11 finding Laboratory test 05/24/2019 [facility] Poc , Negative Negative 12 finding Urine Poc Urinalysis 05/24/2019 [facility] Poc Glucose, Negative Negative Urine Poc Bilirubin, Urine Negative Negative Poc Ketone, Urine Negative Negative Poc Specific [place], Urine 1.025 Normal 1.010-1.030 Poc Blood, Urine 3+ Abnormal Negative Poc pH, Urine 6.5 Normal 5-9 Poc Protein, Urine Negative Negative Poc Urobilinogen, Urine 1.0 Negative Poc Nitrite, Urine Negative Negative Poc Leukocytes, Urine Negative Negative Poc Color, Urine Yellow Poc Clarity, Urine Clear 13 1 PLEASE NOTE Total bilirubin results may be falsely elevated in patients taking Eltrombopag. 2 NORMAL KIDNEY FUNCTION OR MILD DISEASE - GFR >OR= 60 CHRONIC KIDNEY DISEASE - GFR 15 - 59 RENAL FAILURE - GFR <15 Est. GFR calculation based on the MDRD study equation, which assumes a steady state for creatinine. Est. GFR should not be used for medication dosing. 3 Because ethnic data is not always readily [...] 15-29 5 Kidney failure <15 (or dialysis) 4 Fiscal Assistant: [id number] Test Disclaimer: Positive bacteria, red blood cells, white blood cells, early , low specific gravity, and other factors may cause false positive or negative results. It is recommended to retest unexpected and borderline results with a serum test when applicable. If is still suspected, please repeat test after 48 to 72 hours. 5 Troponin-I testing on Plasma Separator Tubes (PST) has a known false positive rate of 0.20-0.40%. All positive troponins reflex immediately to secondary confirmatory testing. Using the [employer] DxI 800 Access Immunoassay systems, the 99th percentile upper reference limit was demonstrated to be < 0.03 ng/mL. 6 <5.0 Negative 5.0 - 25.0 Indeterminate (Repeat testing recommended after 72 hours) >25.0 Positive Perimenopausal women can display HCG levels of up to 20 mIU/mL 7 Therapeutic concentration: <50 ug/mL Toxic concentration: >120 ug/mL 8 Standard intensity warfarin therapeutic range: 2.0-3.0 High intensity warfarin therapeutic range: 2.5-3.5 9 Because ethnic data is not always readily [...] 15-29 5 Kidney failure <15 (or dialysis) 10 Troponin-I testing on Plasma Separator Tubes (PST) has a known false positive rate of 0.20-0.40%. All positive troponins reflex immediately to secondary confirmatory testing. Using the [employer] DxI 800 Access Immunoassay systems, the 99th percentile upper reference limit was demonstrated to be < 0.03 ng/mL. 11 <5.0 Negative 5.0 - 25.0 Indeterminate (Repeat testing recommended after 72 hours) >25.0 Positive Perimenopausal women can display HCG levels of up to 20 mIU/mL 12 Fiscal Assistant: [id number] Test Disclaimer: Positive bacteria, red blood cells, white blood cells, early , low specific gravity, and other factors may cause false positive or negative results. It is recommended to retest unexpected and borderline results with a serum test when applicable. If is still suspected, please repeat test after 48 to 72 hours. 13 Fiscal Assistant: [id number] Procedures Description No Information Available Medical Devices Description No Information Available Encounters Type Date Location Provider Dx Diagnosis Office Visit 10/13/2019 Charlie Moya J00 Acute nasopharyngitis 2:15p M.DJabier [common cold] R05 Cough R09.81 Nasal congestion E03.9 Hypothyroidism, unspecified I10 Essential (primary) hypertension [...] F07.81 Postconcussional syndrome E04.0 Nontoxic diffuse goiter Office Visit 09/13/2019 10:15a [facility] Charlie Orozco E03.9 Hypothyroidism, Alberto Rodríguez unspecified [...] w abnormal findings Office Visit 09/04/2019 9:45a [facility] Charlie Orozco E03.9 Hypothyroidism, Steffen Rodríguez. unspecified I10 Essential (primary) hypertension N39.46 Mixed [...] F07.81 Postconcussional syndrome Office Visit 08/16/2019 2:00p [facility] Blas Gayle, E03.9 Hypothyroidism, N.P. unspecified [...] K52.3 Indeterminate colitis Office Visit 06/07/2019 11:15a [facility] Blas Gayle, E03.9 Hypothyroidism, N.P. unspecified [...] Indeterminate colitis Assessments Date Code Description Provider 10/13/2019 J00 Acute nasopharyngitis [common cold] Charlie Orozco M.D. 10/13/2019 R05 Cough Charlie Orozco M.D. 10/13/2019 R09.81 Nasal congestion Charlie Orozco M.D. 10/13/2019 E03.9 Hypothyroidism, unspecified Charlie Orozco M.D. 10/13/2019 I10 Essential (primary) hypertension Charlie Orozco M.D. 10/13/2019 N39.46 Mixed incontinence Charlie Orozco M.D. 10/13/2019 N20.9 Urinary calculus, unspecified Charlie Orozco M.D. 10/13/2019 K59.00 Constipation, unspecified Charlie Orozco M.D. 10/13/2019 K64.9 Unspecified hemorrhoids Charlie rOozco M.D. 10/13/2019 L20.9 Atopic dermatitis, unspecified Charlie Orozco M.D. 10/13/2019 J30.9 Allergic rhinitis, unspecified Ernesto, Ahmad M., M.D. 10/13/2019 F41.9 Anxiety disorder, unspecified Charlie Orozco M.D. 10/13/2019 G47.00 Insomnia, unspecified Charlie Orozco M.D. 10/13/2019 F90.0 Attention-deficit hyperactivity disorder, Charlie Orozco M.D. predominantly inattentive type 10/13/2019 F31.81 Bipolar II disorder Charlie Orozco M.D. 10/13/2019 E55.9 Vitamin D deficiency, unspecified Charlie Orozco M.D. 10/13/2019 G43.119 Migraine with aura, intractable, without Charlie Orozco M.D. status migrainosus 10/13/2019 S02.82xD Fracture of other specified skull and Charlie Orozco M.D. facial bones, left side, subsequent encounter for fracture with routine healing 10/13/2019 N83.202 Unspecified ovarian cyst, left side Charlie Orozco M.D. 10/13/2019 F07.81 Postconcussional syndrome Charlie Orozco M.D. 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 09/13/2019 E03.9 Hypothyroidism, unspecified Charlie Orozco M.D. [...] 09/04/2019 G43.119 Migraine with aura, intractable, without Charlie Orozco M.D. status migrainosus 09/04/2019 S02.82xD Fracture of other specified skull and Charlie Orozco M.D. facial bones, left side, subsequent encounter for fracture with routine healing 09/04/2019 N83.202 Unspecified ovarian cyst, left side Charlie Orozco M.D. 09/04/2019 F07.81 Postconcussional syndrome Charlie Orozco M.D. 08/16/2019 E03.9 Hypothyroidism, unspecified Blas Gayle, N.P. 08/16/2019 I10 Essential (primary) hypertension Blas Gayle N.P. 08/16/2019 N39.46 Mixed incontinence Blas Gayle N.P. 08/16/2019 N20.9 Urinary calculus, unspecified Blas Gayle N.P. 08/16/2019 K64.9 Unspecified hemorrhoids Blas Gayle N.P. 08/16/2019 L20.9 Atopic dermatitis, unspecified Blas Gayle N.PJabier 08/16/2019 J30.9 Allergic rhinitis, unspecified Blas Gayle, N.P. 08/16/2019 F41.9 Anxiety disorder, unspecified Blas Gayle, N.P. 08/16/2019 G47.00 Insomnia, unspecified Blas Gayle, N.P. 08/16/2019 F90.0 Attention-deficit hyperactivity disorder, Blas Gayle N.P. predominantly inattentive type 08/16/2019 F31.81 Bipolar II disorder Blas Gayle N.P. 08/16/2019 E55.9 Vitamin D deficiency, unspecified Blas Gayle, N.P. 08/16/2019 G43.119 Migraine with aura, intractable, without Blas Gayle N.PJabier status migrainosus 08/16/2019 S02.82xD Fracture of other specified skull and Blas Gayle N.PJabier facial bones, left side, subsequent encounter for fracture with routine healing 08/16/2019 F07.81 Postconcussional syndrome Blas Gayle N.P. 08/16/2019 N83.202 Unspecified ovarian cyst, left side Blas Gayle N.P. 08/16/2019 R10.31 Right lower quadrant pain Blas Gayle N.P. 08/16/2019 N91.1 Secondary amenorrhea Blas Gayle N.P. 08/16/2019 K52.3 Indeterminate colitis Blas Gayle, N.P. 06/07/2019 E03.9 Hypothyroidism, unspecified Blas Gayle, N.P. 06/07/2019 I10 Essential (primary) hypertension Blas Gayle N.P. 06/07/2019 N39.46 Mixed incontinence Blas Gayle N.P. 06/07/2019 N20.9 Urinary calculus, unspecified Blas Gayle, N.P. 06/07/2019 K64.9 Unspecified hemorrhoids Blas Gayle N.P. 06/07/2019 L20.9 Atopic dermatitis, unspecified Blas Gayle, N.P. 06/07/2019 J30.9 Allergic rhinitis, unspecified Blas Gayle N.P. 06/07/2019 F41.9 Anxiety disorder, unspecified Blas Gayle N.P. 06/07/2019 G47.00 Insomnia, unspecified Blas Gayle N.P. 06/07/2019 F90.0 Attention-deficit hyperactivity disorder, Blas Gayle, N.P. predominantly inattentive type 06/07/2019 F31.81 Bipolar II disorder Blas Gayle N.P. 06/07/2019 E55.9 Vitamin D deficiency, unspecified Blas Gayle N.P. 06/07/2019 G43.119 Migraine with aura, intractable, without Blas Gayle, N.P. status migrainosus 06/07/2019 S02.82xD Fracture of other [...] 06/07/2019 K52.3 Indeterminate colitis Blas Gayle N.P. Plan of Treatment 10/13/2019 - Charlie Orozco M.D.J00 Acute nasopharyngitis [common cold] Comments:INCREASE PO FLUIDTYLENOL OR MOTRIN PRNREST USE ANTIHISTAMINE PRNR05 UobwhD33.81 Nasal xdpryrwmmcL91.9 Hypothyroidism, nsbljkkknvhV69 Essential ( primary) upspvmqchowlE77.46 Mixed fqxfpxbwwdcjY27.9 Urinary calculus, tizbrlhwmhqS37.00 Constipation, tpeboupxaotG49.9 Unspecified txyrjdvmassU01.9 Atopic dermatitis, lltwoplglcfK43.9 Allergic rhinitis, rueidwlmspdG33.9 Anxiety disorder, orcrgxdposqS94.00 Insomnia, kfdmprhbkqaT85.0 Attention-deficit hyperactivity disorder, predominantly inattentive typeF31.81 Bipolar II mbhvzjlsS69.9 Vitamin D deficiency, srugkyaucboJ98.119 Migraine with aura, intractable, without status canqrqjmpvaX02.82xD Fracture of other specified skull and facial bones, left side, subsequent encounter for fracture with routine mroazkcA00.202 Unspecified ovarian cyst, left sideF07.81 Postconcussional vvwcfvreB04.0 Nontoxic diffuse goiter Functional Status Description No Information Available Mental Status Description No Information Available Referrals Refer to Reason for Referral Status Appt Date Abilio Baer MD Sent [address] [place] [address] [phone]
--- OUTSIDE RECORDS SUMMARY | 2019-11-11 13:44 | XMS REPORT | Continuity of Care Document ---
:1990 External Reference #:[id number] Author Name Charlie Orozco M.D. (transmitted by agent of provider [employer]) Address [address] [address] Care Team Providers Name Role Phone Abilio Baer MD - Endocrinology, Care Team Information Luncheonette Manager Diabetes & Metabolism Problems Description No Information Available Social History Type Date Description Comments Sex Unknown ETOH Use Occasionally consumes alcohol Tobacco Use Start: Unknown End: Patient is a former smoker Unknown Recreational Drug Use Denies Drug Use Allergies, Adverse Reactions, Alerts Active Allergies Reaction Severity Comments Date Percocet 08/25/2018 Bactrim 08/25/2018 Medications Active Medications SIG Qnty Indications Ordering Date Provider Cipro 1 tab by mouth 14tabs J01.40 Charlie Orozco, 11/02/2019 500mg Tablets twice a day M.D. Ondansetron HCL 1 tab by mouth 30tabs R11.0 Charlie Orozoc, 11/02/2019 8mg every 6 hours as M.D. Tablets needed Effexor XR 1 by mouth every 90caps F31.81 Charlie Orozco, 06/07/2019 75mg Caps ER day M.D. 24HR Senna-S 2 tab by mouth 120tabs Charlie Orozco, 02/24/2019 8.6-50mg Tablets twice a day M.D. every evening Seroquel 1 tab by mouth 60tabs F31.81 Charlie Orozco, 01/09/2019 25mg Tablets bid M.D. Levothyroxine Sodium take 1 tablet by 30tabs [...] Range Note CBC With Diff 09/13/2019 [facility] [place] WBC 5.8 10*3/uL (4.1-11.0) [address] (607)- - RBC 4.29 10*6/uL (4.00-5.40) HGB 10.6 g/dL Low (12.0-16.0) HCT 33.5 % Low (36.0-47.0) MCV 78.1 fL Low (80.0-95.0) MCH 24.8 pg Low (27.0-32.0) MCHC 31.7 g/dL Low (32.0-36.0) RDW 16.2 % High (10.5-14.5) PLT 277 10*3/uL (150-450) MPV 9.0 fL (7.1-10.7) Neut % 44.4 % (35.0-75.0) Lymph % 44.8 % (16.0-52.0) [place] % 8.3 % High (0.0-8.0) Eos % 2.2 % (0.0-5.0) Baso % 0.3 % (0.0-4.0) Neut # 2.6 10*3/uL (1.8-7.7) Lymph # 2.6 10*3/uL (1.2-4.8) [place]mer # 0.5 10*3/uL (0.0-0.8) Eos # 0.1 10*3/uL (0.0-0.5) Baso # 0.0 10*3/uL (0.0-0.2) CMP 09/13/2019 [facility] [place] Sodium 142 mmol/L (136-145) [address] (607)- - Potassium 3.6 mmol/L (3.6-5.2) Chloride 108 [...] NOTE> 2 Laboratory test finding 09/13/2019 [facility] [place] Esr 4 mm/h (0-20) [address] (607)- - Free Thyroxine @ 1.10 ng/dL (0.76-1.46) TSH,Ultrasensitive @ 22.500 mIU/L High (0.360-4.170) Thyroid Antibody 09/13/2019 [facility] [place] Thyroglobulin AB @ 36 IU/mL (< 40) And Peroxidase [address] (607)- - Thyr Peroxidase AB @ 22 IU/mL (<35) CBC No Diff 08/31/2019 [facility] White Blood Count 4.4 10^3/uL Normal 3.5-10.8 [...] fL Normal 7.4-10.4 Comp Metabolic Panel 08/31/2019 [facility] Sodium 137 mmol/L Normal 135-145 Potassium 3.8 [...] Egfr 131.3 >60 3 Laboratory test 08/29/2019 [facility] Poc , Negative Negative 4 finding Urine Laboratory test 06/10/2019 [facility] Troponin-I (TnI) 0.00 ng/mL < 0.03 5 finding Laboratory test 06/10/2019 [facility] Alcohol < 10 mg/dL Normal <10 finding Salicylate < 2.50 mg/dL <30 HCG < 0.60 mIU/mL 6 Acetaminophen < 15 g/mL 7 TSH (Thyroid Stim Horm) 7.19 mcIU/mL High 0.34-5.60 CBC Auto Diff 06/10/2019 [facility] White Blood 4.2 10^3/uL Normal 3.5-10.8 Count [...] Red Blood Cells % 0.0 Inr/Protime 06/10/2019 [facility] Inr 0.97 Normal 0.82-1.09 8 Comp Metabolic Panel 06/10/2019 [facility] Sodium 139 mmol/L Normal 135-145 Potassium 3.4 [...] Egfr 118.6 >60 9 Laboratory test 06/10/2019 [facility] Troponin-I (TnI) 0.00 ng/mL < 0.03 10 finding Laboratory test 05/24/2019 [facility] HCG < 0.60 mIU/mL 11 finding Laboratory test 05/24/2019 [facility] Poc , Negative Negative 12 finding Urine Poc Urinalysis 05/24/2019 [facility] Poc Glucose, Negative Negative Urine Poc Bilirubin, Urine Negative Negative Poc Ketone, Urine Negative Negative Poc Specific [place], Urine 1.025 Normal 1.010-1.030 Poc Blood, Urine [...] 5 Kidney failure <15 (or dialysis) 4 [employer]ric Pattern Grader: [id number] Test Disclaimer: Positive bacteria, red blood cells, [...] immediately to secondary confirmatory testing. Using the mGaadiI 800 Access Immunoassay systems, the 99th percentile [...] immediately to secondary confirmatory testing. Using the [employer] DxI 800 Access Immunoassay systems, the 99th percentile upper reference limit was demonstrated to be < 0.03 ng/mL. 11 <5.0 Negative 5.0 - 25.0 Indeterminate (Repeat testing recommended after 72 hours) >25.0 Positive Perimenopausal women can display HCG levels of up to 20 mIU/mL 12 [employer]ric Pattern Grader: [id number] Test Disclaimer: Positive bacteria, red blood cells, white blood cells, early , low specific gravity, and other factors may cause false positive or negative results. It is recommended to retest unexpected and borderline results with a serum test when applicable. If is still suspected, please repeat test after 48 to 72 hours. 13 Fabric Pattern Grader: [id number] Procedures Description No Information Available Medical Devices Description No Information Available Encounters Type Date Location Provider Dx Diagnosis Office Visit 11/02/2019 Charlie Moya, J00 Acute nasopharyngitis 1:40p M.D. [common cold] R05 Cough R09.81 Nasal congestion J01.40 Acute pansinusitis, unspecified R11.0 Nausea E03.9 Hypothyroidism, unspecified I10 Essential (primary) hypertension [...] syndrome E04.0 Nontoxic diffuse goiter Office Visit 10/13/2019 2:15p Charlie Moya, J00 Acute nasopharyngitis M.D. [common cold] R05 Cough R09.81 Nasal congestion [...] Nontoxic diffuse goiter Office Visit 09/13/2019 10:15a [facility] Charlie Orozco E03.9 Anne Aguilear M.D. unspecified I10 Essential (primary) hypertension N39.46 [...] w abnormal findings Office Visit 09/04/2019 9:45a [facility] Charlie Orozco E03.Anne Meyer M.D. unspecified I10 Essential (primary) hypertension N39.46 [...] F07.81 Postconcussional syndrome Office Visit 08/16/2019 2:00p [facility] Blas Gayle, E03.9 Hypothyroidism, N.P. unspecified [...] K52.3 Indeterminate colitis Office Visit 06/07/2019 11:15a [facility] Blas Gayle, E03.9 Hypothyroidism, N.P. unspecified [...] Indeterminate colitis Assessments Date Code Description Provider 11/02/2019 J00 Acute nasopharyngitis [common cold] Charlie Orozco M.D. 11/02/2019 R05 Cough Charlie Orozco M.D. 11/02/2019 R09.81 Nasal congestion Charlie Orozco M.D. 11/02/2019 J01.40 Acute pansinusitis, unspecified Charlie Orozco M.D. 11/02/2019 R11.0 Nausea Charlie Orozco M.D. 11/02/2019 E03.9 Hypothyroidism, unspecified Charlie Orozco M.D. 11/02/2019 I10 Essential (primary) hypertension Charlie Orozco M.D. 11/02/2019 N39.46 Mixed incontinence Charlie Orozco M.D. 11/02/2019 N20.9 Urinary calculus, unspecified Charlie Orozco M.D. 11/02/2019 K59.00 Constipation, unspecified Charlie Orozco M.D. 11/02/2019 K64.9 Unspecified hemorrhoids Charlie Orozco M.D. 11/02/2019 L20.9 Atopic dermatitis, unspecified Charlie Orozco M.D. 11/02/2019 J30.9 Allergic rhinitis, unspecified Charlie Orozco M.D. 11/02/2019 F41.9 Anxiety disorder, unspecified Charlie Orozco M.D. 11/02/2019 G47.00 Insomnia, unspecified Charlie Orozco M.D. 11/02/2019 F90.0 Attention-deficit hyperactivity disorder, Charlie Orozco M.D. predominantly inattentive type 11/02/2019 F31.81 Bipolar II disorder Charlie Orozco M.D. 11/02/2019 E55.9 Vitamin D deficiency, unspecified Charlie Orozco M.D. 11/02/2019 G43.119 Migraine with aura, intractable, without ErnestoCharlie myers M.D. status migrainosus 11/02/2019 S02.82xD Fracture of other specified skull and Charlie Orozco M.D. facial bones, left side, subsequent encounter for fracture with routine healing 11/02/2019 N83.202 Unspecified ovarian cyst, left side Charlie Orozco M.D. 11/02/2019 F07.81 Postconcussional syndrome Charlie Orozco M.D. 11/02/2019 E04.0 Nontoxic diffuse goiter Charlie Orozco M.D. 10/13/2019 J00 Acute nasopharyngitis [common cold] Charlie [...] Orozco M.D. 10/13/2019 K64.9 Unspecified hemorrhoids Charlie Orozco M.D. 10/13/2019 L20.9 Atopic dermatitis, unspecified Charlie Orozco M.D. 10/13/2019 J30.9 Allergic rhinitis, unspecified Charlie Orozco M.D. 10/13/2019 F41.9 Anxiety disorder, unspecified Charlie [...] 08/16/2019 L20.9 Atopic dermatitis, unspecified Blas Gayle N.P. 08/16/2019 J30.9 Allergic rhinitis, unspecified Blas Gayle N.P. 08/16/2019 F41.9 Anxiety disorder, unspecified Blas Gayle N.P. 08/16/2019 G47.00 Insomnia, unspecified Blas Gayle N.P. 08/16/2019 F90.0 Attention-deficit hyperactivity disorder, Blas [...] Gayle N.P. 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 predominantly inattentive type 06/07/2019 F31.81 Bipolar II disorder Blas Gayle N.P. 06/07/2019 E55.9 Vitamin D deficiency, unspecified Blas Gayle N.P. 06/07/2019 G43.119 Migraine with aura, intractable, without Allyson Scruggs.Ravin status migrainosus 06/07/2019 S02.82xD Fracture of other specified skull and Blas Gayle N.P. facial bones, left side, subsequent encounter for fracture with routine healing 06/07/2019 F07.81 Postconcussional syndrome Blas Gayle N.P. 06/07/2019 N83.202 Unspecified ovarian cyst, left side Allyson Scruggs.P. 06/07/2019 R10.31 Right lower quadrant pain Allyson Scruggs.P. 06/07/2019 N91.1 Secondary amenorrhea Blas Gayle N.P. 06/07/2019 K52.3 Indeterminate colitis Blas Gayle N.P. Plan of Treatment 11/02/2019 - Charlie Orozco M.D.J00 Acute nasopharyngitis [common cold] Comments:INCREASE PO FLUIDTYLENOL OR MOTRIN PRNREST USE ANTIHISTAMINE PRNR05 CoughComments:INCREASE CLEAR LIQUIDSSTEAMGARGLE WARM SALT H2O TID ROBITUSSIN DM PRNR09.81 Nasal congestionComments:INCREASE PO FLUIDTYLENOL OR MOTRIN PRNREST USE ANTIHISTAMINE PRNJ01.40 Acute pansinusitis, unspecifiedNew Medication:Cipro 500 mg - 1 tab by mouth twice a dayComments:INCREASE PO FLUIDTYLENOL OR MOTRIN PRN ANTIHISTAMINE PRNR11.0 NauseaNew Medication:Ondansetron HCL 8 mg - 1 tab by mouth every 6 hours as neededComments:INCREASE PO FLUID SMALL SIPS OF FLUIDS AT A TIME SMALL FREQUENT MEALS F/U DIRECTED CALL IF YOU HAVE VOMITING OR WITH S /S OF JYXHQOVHUJCC56.9 Hypothyroidism, ohlyqjzrihkQ56 Essential (primary) hhybilonemuvU15.46 Mixed wmaiwyswgyqqJ36.9 Urinary calculus, ilfahjyqfkdU56.00 Constipation, opjfpzhdbjrZ98.9 Unspecified bftenzqhpccN40.9 Atopic dermatitis, vkagejijsckB97.9 Allergic rhinitis, vaqmjtiugnrU27.9 Anxiety disorder, ibkyfykgsyoF79.00 Insomnia, fginkdidojpY08.0 Attention-deficit hyperactivity disorder, predominantly inattentive typeF31.81 Bipolar II spccjncuW18.9 Vitamin D deficiency, skvujeonxkfS37.119 Migraine with aura, intractable, without status jkeqphgzvchA55.82xD Fracture of other specified skull and facial bones, left side, subsequent encounter for fracture with routine snijedrR27.202 Unspecified ovarian cyst, left sideF07.81 Postconcussional dihatypcW44.0 Nontoxic diffuse goiter Functional Status Description No Information Available Mental Status Description No Information Available Referrals Refer to Reason for Referral Status Appt Date Abilio Baer MD Sent [address] [place] [id number] [phone]
[2019-11-11 13:47] VITALS: BP 128/79
--- NOTE | 2019-11-11 14:22 | UC ---
Complaint Female HPI - HPI Summary HPI Summary: Patient is a 29 year old female, who presents today to the urgent care with increased vaginal bleeding for past 2 months. She reports that the bleeding got heavier on 11/01/19 and she is still bleeding. Using about 2 pads a day. She is . She has a history of 2 ectopic pregnancies and 2 miscarriages .Her eldest child is 13 years old and the youngest is 3 years old. She had a tubal ligation 3 years ago and reports that she got despite that twice. She has been off the control pills for past 4 months. There is associated abdominal pain. Denies any urinary symptoms but does have some constipation . She denies any fever, chills, chest pain or shortness of breath . No nausea or vomiting. 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 - History Of Current Complaint Chief Complaint: UCGU Stated Complaint: PERSONAL Time Seen by Provider: 11/11/19 13:51 Hx Obtained From: Patient Hx Last Menstrual Period: 11/01/19 Pain Intensity: 6 - Allergies/Home Medications Allergies/Adverse Reactions: Allergies Allergy/AdvReac Type Severity Reaction Status Date / Time sulfamethoxazole Allergy Hives/Diff. Verified 08/31/19 11:26 [From Bactrim] Breathing/I tching trimethoprim [From Bactrim] Allergy Hives/Diff. Verified 08/31/19 11:26 Breathing/I tching oxycodone [From Percocet] AdvReac Intermediate Rash Verified 08/31/19 11:26 Home Medications: Home Medications Levothyroxine TAB* [Synthroid 125 MCG TAB*] 125 mcg PO DAILY 05/04/18 [History Confirmed 11/11/19] PMH/Surg Hx/FS Hx/Imm Hx - Additional Past Medical History Additional PMH: Past Medical History : Hypothyroidism, asthma Past Surgical History: x 3- thousand , 2014, and 16, D&C in 2011, tubal ligation in 2016. Family History : Cardiac disease Social History : no alcohol, former smoker, no drug use. Previously Healthy: Yes Other History Of: Negative For: Anticoagulant Therapy - Surgical History Surgical History: Yes Surgery Procedure, Year, and Place: [facility], [facility] [place]. 04/09/2012 DILATION AND CURETTAGE - Family History Known Family History: Positive: Cardiac Disease, Other - Crohn's, No malignant hyperthermia, no anesthesia rxn, mood disorder - Social History Alcohol Use: None Substance Use Type: None Smoking Status (MU): Former Smoker Length of Time of Smoking/Using Tobacco: at age 23 Have You Smoked in the Last Year: No - Immunization History Most Recent Influenza Vaccination: last year Most Recent Tetanus Shot: n/a Most Recent Pneumonia Vaccination: n/a Review of Systems All Other Systems Reviewed And Are Negative: Yes Constitutional: Positive: Negative Skin: Positive: Negative Eyes: Positive: Negative ENT: Positive: Negative Respiratory: Positive: Negative Cardiovascular: Positive: Negative Gastrointestinal: Positive: Abdominal Pain, Other - constipation Genitourinary: Positive: Negative. Negative: Dysuria, Hematuria, Frequency, Urgency, Vaginal/Penile Burning, Vaginal/Penile Discharge Motor: Positive: Negative Neurovascular: Positive: Negative Musculoskeletal: Positive: Negative Neurological/Mental Status: Positive: Negative Psychological: Positive: Negative Is Patient Immunocompromised?: No Physical Exam - Summary Physical Exam Summary: Physical Exam: Const: Appears well. No signs of apparent distress present. Alert and oriented x 3. Musculo: Walks with a normal gait. Head/Face: Atraumatic, normocephalic on inspection. Eyes: EOMI and PERRLA in both eyes. Conjunctivae clear. No discharge noted ENT: Hearing normal, Respiratory: Respirations are unlabored. Extremities: Peripheral circulation is grossly normal. Pulses 2+ Abdomen : tender to palpate in suprapubic area, with a palpable mass. nondistended . Bowel sounds present . No guarding , rebound tenderness or rigidity noted. Skin: No lesions or rash located on the upper extremities or on the lower extremities. Neuro: Cranial nerves II to XII intact, motor and sensory intact. DTR Intact bilaterally. Mood is normal. Affect is normal. Triage Information Reviewed: Yes Vital Signs: Initial Vital Signs Temp 98.7 F 11/11/19 13:41 Pulse 80 11/11/19 13:41 Resp 18 11/11/19 13:41 BP 128/79 11/11/19 13:41 Pulse Ox 100 11/11/19 13:41 Vital Signs Reviewed: Yes Complaint Female Dx - Course Course Of Treatment: Urine preg test: Neg Possible fibroid/ uterine pathology . Patient needs additional testing with imaging and blood work, thus ER transfer advised and patient agrees. Report called to the ER provider ( Amarilys Goldman) at [facility], advised provider of the history, physical examination , and duration of illness so far and the need for definitive management. She will drive to ER in a private car . We discussed that she will get someone else to drive her . - Differential Dx/Diagnosis Differential Diagnosis/HQI/PQRI: Other - fibroid Provider Diagnosis: Vaginal bleeding Discharge ED - Sign-Out/Discharge Documenting (check all that apply): Patient Departure All imaging exams completed and their final reports reviewed: No Studies - Discharge Plan Condition: Stable Disposition: HOME-RECOMMEND TO ED Patient Education Materials: Dysfunctional Uterine Bleeding (ED) Referrals: Charlie Orozco MD [Primary Care Provider] - If Needed Additional Instructions: Patient needs additional testing, thus ER transfer advised and patient agrees. Please go to the ER for further evaluation . - Billing Disposition and Condition Condition: STABLE Disposition: Home-Recommend to ED
== END 2019-11-11 14:52 | disposition home health service (06) ==
LOC: UCEAST 13:38
DX: N93.9 Abnormal uterine and vaginal bleeding, unspecified (principal); Z32.02 Encounter for pregnancy test, result negative; E03.9 Hypothyroidism, unspecified; Z79.890 Hormone replacement therapy; Z88.5 Allergy status to narcotic agent; Z88.2 Allergy status to sulfonamides; Z87.891 Personal history of nicotine dependence
CPT/HCPCS: 84702; 99211; G0463

== ENCOUNTER 2019-11-12 09:56 | Emergency (ER) | payer OTHER ==
--- NOTE | 2019-11-12 11:33 | ED ---
GI/ HPI - HPI Summary HPI Summary: Patient is a 29 y/o F presenting to [facility] with complaints of RLQ abdominal pain and vaginal bleeding for the past two months. She states that she has been intermittently spotting on a daily basis for the past two months. Patient notes that her periods have been abnormally heavy as well. She reports that her pain and bleeding are worse after sexual intercourse. Pain is currently rated 5-6/ 10. She notes that she had sexual intercourse yesterday. Last menstrual cycle was 10/01/19 and is noted to have been heavier than her normal menstrual cycles. No changes to appetite, no changes to bowel movements, and no urinary Sx reported. Patient states that she has been trying to get an appointment with her OBGYN but has been having difficulty doing so due to the COVID-19 pandemic. She notes that she went to convenient care yesterday. Urine tests showed that the patient was not . The provider who evaluated her told her that there was a "mass" palpated at her area of pain. US was not available and the patient was recommended to come to ED for evaluation. PMHx of hypothyroidism noted. She states that she has not been taking her medications for the past two months until today. Patient reports that she was scheduled to have a thyroid test and was instructed to stop taking her medications for the three weeks leading up to the test. This test was continually pushed back and she decided to resume her medications today. Patient additionally notes that she had a pap smear in 2010 that was "not normal". Patient's OBGYN is following this, patient notes that she last saw her OBGYN 6-7 months ago. PSHx of caesarean section x3 and D&C noted. Home medications and allergies are reviewed. Home Medications Medication Instructions Recorded Confirmed Type Levothyroxine TAB* [Synthroid 125 125 mcg PO DAILY 05/04/18 11/11/19 History MCG TAB*] - History of Current Complaint Chief Complaint: EDVaginalBleeding Time Seen by Provider: 11/12/19 11:14 Stated Complaint: VAGINAL BLEEDING PER PT Hx Obtained From: Patient Hx Last Menstrual Period: 11/01/19 Onset/Duration: Started Weeks Ago, Still Present Timing: Intermittent, Lasting Weeks Severity: Moderate Current Severity: Moderate Pain Intensity: 6 Location of Pain: RLQ Associated Signs and Symptoms: Positive: Abdominal Pain, Other: - negative - changes to bowel movements. Negative: Change in Appetite, UTI Symptoms Additional Signs & Symptoms: Positive: Vaginal Bleeding Aggravating Factor(s): [place] - Allergy/Home Medications Allergies/Adverse Reactions: Allergies Allergy/AdvReac Type Severity Reaction Status Date / Time sulfamethoxazole Allergy Hives/Diff. Verified 11/12/19 10:01 [From Bactrim] Breathing/I tching trimethoprim [From Bactrim] Allergy Hives/Diff. Verified 11/12/19 10:01 Breathing/I tching oxycodone [From Percocet] AdvReac Intermediate Rash Verified 11/12/19 10:01 Home Medications: Home Medications Levothyroxine TAB* [Synthroid 125 MCG TAB*] 125 mcg PO DAILY 05/04/18 [History Confirmed 11/11/19] PMH/Surg Hx/FS Hx/Imm Hx Endocrine/Hematology History: Reports: Hx Thyroid Disease - HYPOTHYROID, Hx Anemia - HISTORY OF DURING , NO PROBLEMS, TRANSFUSION WITH LAST 3 CHILDREN Denies: Hx Anticoagulant Therapy, Hx Blood Disorders, Hx Diabetes Cardiovascular History: Denies: Hx Hypertension Respiratory History: Reports: Hx Asthma Denies: Hx Chronic Obstructive Pulmonary Disease (COPD) GI History: Reports: Other GI Disorders - colitis Denies: Hx Ulcer Musculoskeletal History: Reports: Hx Arthritis - BILATERAL KNEE AND ANKLES, LEFT GREATER THAN RIGHT Sensory History: Reports: Hx Vision Problem - Left medial wall orbital fx on 06/26/2018 - visual change, resolved on 07/01 Denies: Hx Contacts or Glasses Opthamlomology History: Reports: Hx Vision Problem - Left medial wall orbital fx on 06/26/2018 - visual change, resolved on 07/01 Denies: Hx Contacts or Glasses Neurological History: Reports: Hx Headaches, Hx Migraine, Other Neuro Impairments/Disorders - possible concussion on 06/26/2018? Psychiatric History: Reports: Hx Anxiety - NO MEDICATION, Hx Bipolar Disorder, Other Psychiatric Issues/Disorders - sleep disorders possibly due to stress Denies: Hx Eating Disorder, Hx of Violent Episodes Against Others - Surgical History Surgery Procedure, Year, and Place: 2010, , [facility] OF [facility] [place]. 04/09/2012 DILATION AND CURETTAGE Hx Anesthesia Reactions: No - NAUSEA AND VOMITING, LOST FEELING IN LEFT ARM, AFTER D&C - Immunization History Date of Tetanus Vaccine: Unknown Infectious Disease History: No Infectious Disease History: Denies: Hx Hepatitis, Hx Human Immunodeficiency Virus (HIV), Traveled Outside the [place] in Last 30 Days - Family History Known Family History: Positive: Cardiac Disease, Other - Crohn's, No malignant hyperthermia, no anesthesia rxn, mood disorder - Social History Alcohol Use: None Hx Substance Use: No Substance Use Type: Reports: None Hx Tobacco Use: Yes Smoking Status (MU): Former Smoker Length of Time of Smoking/Using Tobacco: at age 23 Have You Smoked in the Last Year: No Review of Systems Gastrointestinal: Other - negative - changes to appetite and bowel movements Positive: Abdominal Pain Genitourinary: Other - positive - vaginal bleeding; negative - urinary Sx All Other Systems Reviewed And Are Negative: Yes Physical Exam - Summary Physical Exam Summary: Appearance: The patient is well-nourished in no acute distress and in no acute pain. Skin: The skin is warm and dry, and skin color reflects adequate perfusion. HEENT: The head is normocephalic and atraumatic. The pupils are equal and reactive. The conjunctivae are clear and without drainage. Nares are patent and without drainage. Mouth reveals moist mucous membranes, and the throat is without erythema and exudate. The external ears are intact. The ear canals are patent and without drainage. The tympanic membranes are intact. Neck: The neck is supple with full range of motion and non-tender. There are no carotid bruits. There is no neck vein distension. Respiratory: Chest is non-tender. Lungs are clear to auscultation and breath sounds are symmetrical and equal. Cardiovascular: Heart is regular rate and rhythm. There is no murmur or rub auscultated. There is no peripheral edema and pulses are symmetrical and equal. Abdomen: The abdomen is soft and mild RLQ tenderness. There are normal bowel sounds heard in all four quadrants and there is no organomegaly palpated. Pelvis: Mild tenderness and scant amounts of thin vaginal discharge noted. Hospice Executive Director present for exam. Musculoskeletal: There is no back tenderness noted. Extremities are non-tender with full range of motion. There is good capillary refill. There is no peripheral edema or calf tenderness elicited. Neurological: Patient is alert and oriented to person, place and time. The patient has symmetrical motor strength in all four extremities. Cranial nerves are grossly intact. Deep tendon reflexes are symmetrical and equal in all four extremities. Psychiatric: The patient has an appropriate affect and does not exhibit any anxiety or depression. Triage Information Reviewed: Yes Vital Signs On Initial Exam: Initial Vitals Temp Pulse Resp BP Pulse Ox 98.1 F 76 16 114/88 100 11/12/19 09:58 11/12/19 09:58 11/12/19 09:58 11/12/19 09:58 11/12/19 09:58 Vital Signs Reviewed: Yes Procedures - Sedation Patient Received Moderate/Deep Sedation with Procedure: No Diagnostics - Vital Signs Vital Signs Temp Pulse Resp BP Pulse Ox 11/12/19 09:58 98.1 F 76 16 114/88 100 - Laboratory Result Diagrams: 11/12/19 11:42 11/12/19 11:42 Lab Statement: Any lab studies that have been ordered have been reviewed, and results considered in the medical decision making process. - Ultrasound TRANSVAGINAL US Ultrasound Interpretation Completed By: Radiologist Summary of Ultrasound Findings: IMPRESSION: 1. SMALL AMOUNT OF FLUID WITHIN THE ENDOMETRIAL CAVITY. 2. PROMINENCE OF THE PELVIC VASCULATURE. WHILE NONSPECIFIC, THIS CAN BE ASSOCIATED WITH. PELVIC CONGESTION SYNDROME IN THE CORRECT CLINICAL SETTING. 3. NO SONOGRAPHIC FEATURES OF TORSION. PLEASE NOTE THAT PARTIAL OR INTERMITTENT TORSION. MAY BE SONOGRAPHICALLY NORMAL. THIS REPORT WAS REVIEWED BY ED PHYSICIAN. GIGU Course/Dx - Course Course Of Treatment: Ms. Mejía and findings consistent with pelvic vascular congestion on ultrasound. Was no obvious source for her bleeding on pelvic exam. Her exam was not consistent with an acute infection although cultures were sent. I recommend she follow up with her [employer] doctor and she requested to follow her PCP. - Diagnoses Provider Diagnoses: Female pelvic congestion syndrome - Critical Care Time Critical Care Statement: Critical care time is provided exclusive of any time spent performing procedures. Discharge ED - Sign-Out/Discharge Documenting (check all that apply): Patient Departure - discharge - Discharge Plan Condition: Stable Disposition: HOME Patient Education Materials: Pelvic Pain (ED) Referrals: Charlie Orozco MD [Primary Care Provider] - 3 Days Gordon Parikh MD [Medical Doctor] - 3 Days Additional Instructions: PLEASE RETURN TO ED FOR ANY NEW OR WORSENING SYMPTOMS. PLEASE FOLLOW UP WITH YOUR PRIMARY CARE PHYSICIAN WITHIN THREE DAYS. - Billing Disposition and Condition Condition: STABLE Disposition: Home - Attestation Statements Document Initiated by Scribe: Yes Documenting Scribe: AURORA CROW Provider For Whom Scribe is Documenting (Include Credential): MAAME ADAME MD Scribe Attestation: I, AURORA CROW, scribed for MAAME ADAME MD on 11/12/19 at 1416. Scribe Documentation Reviewed: Yes Provider Attestation: The documentation as recorded by the scribeAURORA accurately reflects the service I personally performed and the decisions made by me, MAAME ADAME MD Status of Scribe Document: Viewed
[2019-11-12 11:54] LABS: ABS Basophils 0.1 10^3/ul (0-0.2); ABS Eosinophils 0.1 10^3/ul (0-0.6); ABS Lymphocytes 1.6 10^3/ul (1.0-4.8); ABS Monocytes 0.3 10^3/ul (0-0.8); Eosinophil % 1.7 %; Hematocrit 35 % (35-47); Hemoglobin 11.1 g/dL (12.0-16.0); Lymphocyte % 39.1 %; Mean Corpuscular HGB Conc 32 g/dL (31-36); Mean Corpuscular Hemoglobin 25 pg (27-31); Mean Corpuscular Volume 79 fL (80-97); Mean Platelet Volume 8.5 fL (7.4-10.4); Nucleated Red Blood Cells % 0.1; Platelet Count 226 10^3/uL (150-450); Red Blood Count 4.41 10^6 /uL (3.70-4.87); Red Cell Distribution Width 15 % (10-15)
[2019-11-12 11:56] LABS: Urine Appearance Cloudy; Urine Bilirubin Negative (Negative); Urine Blood Negative (Negative); Urine Color Yellow; Urine Glucose Negative (Negative); Urine Ketones Negative (Negative); Urine Nitrite Negative (Negative); Urine Protein Negative (Negative); Urine Specific Gravity 1.019 (1.010-1.030); Urine Urobilinogen Negative (Negative)
[2019-11-12 12:12] LABS: ALT 17 U/L (7-52); AST 24 U/L (13-39); Albumin 4.4 g/dL (3.2-5.2); Albumin/Globulin Ratio 1.6 (1-3); Alkaline Phosphatase 55 U/L (34-104); Anion Gap 7 mmol/L (2-11); BUN/Creatinine Ratio 20.5 (8-20); Blood Urea Nitrogen 15 mg/dL (6-24); C Reactive Protein < 1.00 mg/L (<8.01); CO2 Carbon Dioxide 26 mmol/L (22-32); Calcium 8.8 mg/dL (8.6-10.3); Chloride 104 mmol/L (101-111); EGFR Non-African American 94.3 (>60); Globulin 2.8 g/dL (2-4); Glucose 85 mg/dL (70-100); Potassium 3.9 mmol/L (3.5-5.0); Sodium 137 mmol/L (135-145); Total Protein 7.2 g/dL (6.4-8.9)
[2019-11-12 12:19] LABS: HCG Pregnancy 0.69 mIU/mL
[2019-11-12 14:21] VITALS: BP 120/87
[2019-11-13 12:38] LABS: Chlamydia trachomatis NAA Negative (Negative); Neisseria gonorrhoeae (GC) NAA Negative (Negative)
[2019-11-13 12:43] LABS: Trichomonas vag NAA Female Negative (Negative)
== END 2019-11-12 14:05 | disposition home or self-care (01) ==
LOC: ED 09:56
DX: N94.89 Other specified conditions associated with female genital organs and menstrual cycle (principal); R10.9 Unspecified abdominal pain; E03.9 Hypothyroidism, unspecified; Z87.891 Personal history of nicotine dependence; R51 Headache; Z88.2 Allergy status to sulfonamides; Z88.6 Allergy status to analgesic agent; Z79.890 Hormone replacement therapy
CPT/HCPCS: 36415; 76830; 80053; 81003; 83605; 83690; 84702; 85025; 86140; 87480; 87491; 87510; 87591; 87661; 99282